=== PATIENT | female | born 1990 ===

== ENCOUNTER → 2020-09-09 10:45 | Outpatient (BNVA) | payer OTHER, SELFPAY | PROVIDERS: PCP Internal Medicine; Visit Provider Advanced Practice Midwife | DX: Z30.431 Encounter for routine checking of intrauterine contraceptive device (principal) | CPT/HCPCS: 99212 ==

== ENCOUNTER 2021-03-05 09:50 | Outpatient (REF) | payer OTHER, SELFPAY ==
[2021-03-05 15:23] LABS: CT PCR NOT DETECTED (Not Detect.); NG PCR NOT DETECTED (Not Detect.)
[2021-03-06 09:37] LABS: BV Int Neg Control Negative (Negative); BV Int Pos Control Positive (Positive)
[2021-03-11 00:06] LABS: HPV 16 RNA NOT DETECTED (NOT DETECTED); HPV mRNA E6/E7 rflx Detected (Not Detected)
== END 2021-03-05 09:51 | disposition home or self-care (01) ==
LOC: HO.LAB 09:50
PROVIDERS: PCP Internal Medicine; Visit Provider Advanced Practice Midwife
DX: Z01.419 Encounter for gynecological examination (general) (routine) without abnormal findings (principal); Z11.51 Encounter for screening for human papillomavirus (HPV); Z97.5 Presence of (intrauterine) contraceptive device; Z20.2 Contact with and (suspected) exposure to infections with a predominantly sexual mode of transmission
CPT/HCPCS: 87480; 87491; 87510; 87591; 87624; 87625; 87660; 88142

== ENCOUNTER 2021-04-03 10:41 | Emergency (ER) | payer OTHER, SELFPAY ==
--- NOTE | ~2021-04-03 | XR_ITS ---
EXAMINATION: XR KNEE, RIGHT CLINICAL INFORMATION: Right knee pain COMPARISON: None TECHNIQUE: Four views of the right knee. FINDINGS: Bones and soft tissues are normal. No fracture or joint effusion. Alignment is anatomic. Joint spaces are well maintained. No abnormal soft tissue calcification. XR/XR knee RT 4V IMPRESSION: Unremarkable right knee exam
[2021-04-03 11:06] VITALS: BP 104/74; PULSE 72; RESP 16; TEMP 36.6; O2SAT 99; BMI 24.4
--- NOTE | 2021-04-03 11:48 | ED_ITS ---
HPI - Extremity Problem General Chief complaint: Extremity Problem Stated complaint: knee pain Time Seen by Provider: 04/03/21 11:34 Source: patient Mode of arrival: ambulatory Limitations: no limitations History of Present Illness HPI Narrative: Patient presents ED for right medial knee pain that hurts on ambulation and movement. Patient states she has been working out the past month and does not know if she did a quick movement caused an injury. Patient denies any leg swelling, calf pain, chest pain, or shortness of breath. Patient is not on any control pills. Related Data Home Medications Medication Instructions Recorded Confirmed fluocinonide 0.05 % topical cream appl TOPICAL BID PRN 11/07/20 03/05/21 levonorgestrel 20 mcg/24 hours (6 INTRAUTERINE 03/05/21 yrs) 52 mg intrauterine device Previous Rx's Medication Instructions Recorded metronidazole 500 mg tablet 500 mg PO BID 7 Days #14 tab 03/10/21 naproxen 500 mg tablet 500 mg PO BID PRN #60 tab 04/02/21 naproxen 500 mg PO BID PRN #20 tab 04/03/21 Allergies Allergy/AdvReac Type Severity Reaction Status Date / Time No Known Allergies Allergy Verified 03/05/21 10:26 [No Known Allergies*] Review of Systems Review of Systems: Yes all other systems are reviewed and are negative Constitutional: Constitutional: Reports as per HPI and Reports no additional constitutional complaints Eyes: Eyes: Reports as per HPI and Reports no additional eye complaints ENT: Reports system reviewed and no additional complaints, except as doc umented and Reports as per HPI Cardiovascular: Cardiovascular: Reports as per HPI and Reports no additional cardiovascular complaints Respiratory: Respiratory: Reports as per HPI and Reports no additional respiratory complaints Gastrointestinal: Gastrointestinal: Reports as per HPI Genitourinary: Genitourinary: Reports no additional female genitourinary complaints and Reports as per HPI Musculoskeletal: Musculoskeletal: Reports no additional musculoskeletal complaints, Reports as per HPI and Reports arthralgias (Right knee pain) Neurologic: Reports system reviewed and no additional complaints, except as d ocumented and Reports as per HPI Psychiatric: Psychiatric: Reports no additional psychiatric complaints and Reports as per HPI PMFSH Past Medical History Medical History Psoriasis Sinusitis Surgical History Hx of bilateral breast reduction surgery Family History Family History Father Diabetes mellitus Social History Social History Alcohol intake: never Advance Directives: No Advance Directives Information Provided: No Patient : No Gender identity: female Physical Exam Vital Signs: Vital Signs: Last Vital Signs Temp 98 F 04/03/21 11:06 Pulse 72 04/03/21 11:06 Resp 16 04/03/21 11:06 BP 104/74 04/03/21 11:06 Pulse Ox 99 04/03/21 11:06 Body Mass Index 24.4 Const: General: cooperative, healthy appearing, comfortable, no acute distress, well developed, alert and awake Orientation/consciousness: patient oriented x3 HENMT: Head: Yes normal to inspection, Yes No palpable skull fracture present, Yes normocephalic, Yes atraumatic and No abrasion Eyes: General: appearance normal, both eyes and all related structures Neck: Neck: Yes normal visual inspection, Yes full ROM, Yes no lymphadenopathy, Yes no meningeal signs, Yes trachea midline, Yes supple and No tender Chest: Chest palpation & inspection: normal inspection of the chest and normal palpation of entire chest wall Resp: Effort & Inspection: normal respiratory effort and able to speak in complete sentences Auscultation: clear to auscultation bilaterally Cardio: Jugular venous distension: no JVD Heart sounds: S1 normal heart sound present and S2 normal heart sound present GI: Inspection: Yes normal to inspection and No abdominal wall ecchymosis Palpation (GI): Soft to palpation, not firm, nontender, no guarding and not rigid : General: No CVA tenderness and Yes no CVA tenderness Back/Spine/Pelvis: Back: no CVA tenderness, No CVA tenderness and No back tenderness Skin: General skin exam: no rashes or lesions noted and elasticity normal Neuro: General: patient oriented x3, gait normal, no meningeal signs and CN's II-XI intact bilaterally Cranial nerves: Yes CN's II-XII intact bilaterally Extrem: Knee images: 1. Positive for right medial knee tenderness. Negative f or any warmth, swelling, or obvious deformity. Negative for laxity. Negative for leg swelling or calf pain. Pulses in feet intact. Able to flex and extend knee, but with pain. Psych: Appearance: grossly normal, well kempt and not disheveled Course Course Course Narrative: With orderl right knee x-ray and the pain medication. not suspecting DVT. We will treat ordered Reevaluation(s) Reevaluation #1: Right knee x-ray came back negative. Patient informed although her x-ray negative she may need MRI from PCP to make sure there is no meniscus or ligament tear/injury. Patient discharged with pain meds Time: 12:18 MDM - Extremity (Nontraumatic) MDM Narrative Medical decision making narrative: Knee sprain Discharge Plan Discharge Clinical Impression: Knee sprain Patient Disposition: Home, Self-Care Instructions: Knee Sprain (ED) Additional Instructions: X-ray came back negative for any fracture or arthritis. He may need MRI for PCP to evaluate for possible meniscus/ligament injury. Please rest lower extremity and refrain from high intensity exercises for at least 5 days. Return to the ED immediately for swelling of knee, redness, hotness, swelling of leg, calf pain, fever, chills, chest pain, shortness of breath, or any other concerning symptoms. Prescriptions: New naproxen 500 mg tablet 500 mg PO BID PRN (Reason: pain) Qty: 20 RF: 0 No Action metronidazole [Flagyl] 500 mg tablet 500 mg PO BID 7 Days Qty: 14 RF: 0 fluocinonide 0.05 % cream topical BID PRNRF: 0 naproxen 500 mg tablet 500 mg PO BID PRN (Reason: pain) Qty: 60 RF: 0 Mirena 20 mcg/24 hours (6 yrs) 52 mg intrauterine device intrauterine RF: 0 Referrals: Dalton Mark MD [Primary Care Provider] - 2 days (Right knee sprain. Will need MRI to confirm meniscus or ligament tear.) Interventions: ED Discharge Assessment Last Done: 04/03/21 12:24 Discharge Date/Time: 04/03/21 12:24 Print Language: Maltese
[2021-04-03] MEDS: Ibuprofen 800 MG TABLET PO (11:54)
== END 2021-04-03 12:24 | disposition home or self-care (01) ==
PROVIDERS: Emergency Provider Emergency Medicine; PCP Internal Medicine
DX: S83.91XA Sprain of unspecified site of right knee, initial encounter (principal); X58.XXXA Exposure to other specified factors, initial encounter; Y93.9 Activity, unspecified; Y92.9 Unspecified place or not applicable; Y99.9 Unspecified external cause status
CPT/HCPCS: 73564; 99283; 99284

== ENCOUNTER 2021-04-25 08:14 | Outpatient (REF) | payer OTHER, SELFPAY | END 2021-04-25 08:15 | disposition home or self-care (01) | LOC: HO.LAB 08:14 | PROVIDERS: PCP Internal Medicine; Visit Provider Internal Medicine | DX: Z20.822 Contact with and (suspected) exposure to COVID-19 (principal) | CPT/HCPCS: C9803; U0003; U0005 ==

== ENCOUNTER 2021-11-10 15:30 | Outpatient (REF) | payer OTHER, SELFPAY ==
[2021-11-10 15:58] LABS: Binax Internal Control QC Valid; Binax Now Covid-19 Ag Negative (Negative)
== END 2021-11-10 15:31 | disposition home or self-care (01) ==
LOC: HO.LAB 15:30
PROVIDERS: Visit Provider Internal Medicine
DX: Z20.822 Contact with and (suspected) exposure to COVID-19 (principal)
CPT/HCPCS: C9803

== ENCOUNTER 2022-01-01 13:22 | Outpatient (REF) | payer OTHER, SELFPAY ==
[2022-01-01 14:21] LABS: COVID-19 Test Negative (Negative)
== END 2022-01-01 13:23 | disposition home or self-care (01) ==
LOC: HO.LAB 13:22
PROVIDERS: Visit Provider Internal Medicine
DX: Z20.822 Contact with and (suspected) exposure to COVID-19 (principal)
CPT/HCPCS: 87635; C9803

== ENCOUNTER 2022-02-17 14:00 | Outpatient (REF) | payer OTHER, SELFPAY ==
[2022-02-17 14:28] LABS: MANUAL DIFF FLAG NO
[2022-02-17 14:57] LABS: Basophils Percent Auto 0.7 % (0-2); Eosinophils Absolute Auto 0.1 X10*3/uL (0.0-0.4); Eosinophils Percent Auto 2.2 % (0-4); Hematocrit 38.6 % (37.0-47.0); Hemoglobin 12.4 g/dl (12.0-16.0); Imm Gran Abs Auto 0.02 X10*3/uL (0.00-0.03); Imm Gran Pct Auto 0.3 % (0.0-0.4); Lymphocytes Absolute Auto 2.1 X10*3/uL (1.2-4.9); Mean Corpuscular HGB Conc 32.1 g/dl (31.0-35.0); Mean Corpuscular Hemoglobin 28.8 pg (27.0-33.0); Mean Corpuscular Volume 89.8 fL (80.0-98.0); Mean Platelet Volume 10.4 fL (9.4-12.3); Monocytes Absolute Auto 0.3 X10*3/uL (0.1-1.2); Monocytes Percent Auto 4.3 % (2-11); Neutrophils Absolute Auto 3.3 x10*3/uL (2.0-8.3); Neutrophils Percent Auto 56.5 % (45-73); Platelet Count 207 X10*3/uL (160-400); White Blood Count 5.8 X10*3/uL (4.8-10.8)
[2022-02-17 15:16] LABS: Alanine Aminotransferase 14 U/L (0-31); Albumin Level 4.3 g/dL (3.5-5.0); Alkaline Phosphatase 66 U/L (39-117); Anion Gap 9 (12-20); Aspartate Amino Transferase 13 U/L (5-31); Bilirubin Total 0.6 mg/dL (0.0-1.0); Blood Urea Nitrogen 13 mg/dL (9-16); Calcium 9.4 mg/dL (8.4-10.2); Carbon Dioxide 30 mmol/L (22-29); Chloride 107 mmol/L (96-108); Cholesterol 131 mg/dL; Estimated Glomerular Filt Rate > 60; Glucose Fasting 89 mg/dL (60-99); HDL Cholesterol 37 mg/dL; LDL Cholesterol Calculated 65 mg/dl; Lipase 34 U/L (8-78); Potassium 4.1 mmol/L (3.3-5.1); Sodium 142 mmol/L (135-145); Total Protein 7.4 g/dL (6.5-8.0); Triglycerides 149 mg/dL
[2022-02-17 15:36] LABS: TSH reflex Free T4 1.17 uIU/mL (0.32-4.0); Vitamin D 25-OH Total 15.4 ng/mL (>30)
[2022-02-17 15:36] LABS: Appearance Urine HAZY; Color Urine YELLOW; Glucose Urine UA NEG (NEG); Leukocyte Esterase Urine NEG (NEG); Nitrite Urine NEG (NEG); PH 7.5 (5.0-8.0); Urine Blood NEG (NEG); Urine Ketones NEG (NEG); Urine Protein TRACE MG/DL (NEG-TRACE)
== END 2022-02-17 14:01 | disposition home or self-care (01) ==
LOC: HO.LAB 14:00
PROVIDERS: PCP Internal Medicine; Visit Provider Internal Medicine
DX: Z00.00 Encounter for general adult medical examination without abnormal findings (principal); R10.13 Epigastric pain; E55.9 Vitamin D deficiency, unspecified
CPT/HCPCS: 36415; 80053; 80061; 81003; 82306; 83690; 84443; 85025

== ENCOUNTER 2022-02-26 08:50 | Outpatient (REF) | payer OTHER, SELFPAY ==
[2022-02-26 09:19] LABS: COVID-19 Test Negative (Negative)
== END 2022-02-26 08:51 | disposition home or self-care (01) ==
LOC: HO.LAB 08:50
PROVIDERS: PCP Internal Medicine; Visit Provider Internal Medicine
DX: Z20.822 Contact with and (suspected) exposure to COVID-19 (principal)
CPT/HCPCS: 87635; C9803

== ENCOUNTER 2022-04-01 15:09 | Outpatient (REF) | payer OTHER, SELFPAY ==
--- NOTE | ~2022-04-01 | US_ITS ---
EXAMINATION: US PELVIS CLINICAL INFORMATION: Lower abdominal pain. COMPARISON: None TECHNIQUE: Ultrasound of the pelvis is performed using both transabdominal and transvaginal transducers along with Doppler. Transvaginal imaging is performed due to inadequate visualization transabdominally. FINDINGS: Uterus: The uterus is anteverted, anteflexed and measures 5.7 cm in length, 3.7 cm in AP and 4.5 cm in transverse dimension. The double wall endometrial thickness is 0.5 cm. The uterus flipped during the exam with an IUD visualized in correct position. The uterus is smooth in contour and has normal myometrial echogenicity. No visible fibroid. Adnexa: Both ovaries are visualized. There is normal color flow to the adnexa. There is no ovarian torsion. There is no pelvic ascites or fluid collection. Right ovary measures 3.9 x 1.9 x 2.5 cm and volume 9.7 mL. There is an anechoic corpus luteal cyst versus cystic remnants measuring 1.8 x 1.5 x 1.6 cm. Left ovary measures 2.9 x 1.4 x 2.2 cm and volume 4.7 mL. It appears unremarkable. No free fluid seen. US/US pelvic and transvaginal IMPRESSION: 1. Anteverted uterus which flipped into retroverted position during the exam. There is an IUD in correct position. 2. Small corpus luteal cyst or remnants of a simple cyst in the right ovary.
== END 2022-04-01 15:10 | disposition home or self-care (01) ==
LOC: HO.US 15:09
PROVIDERS: PCP Internal Medicine; Visit Provider Internal Medicine
DX: R10.13 Epigastric pain (principal); R10.30 Lower abdominal pain, unspecified
CPT/HCPCS: 76830; 76856

== ENCOUNTER 2022-06-30 08:54 | Outpatient (REF) | payer OTHER, SELFPAY ==
[2022-07-02 15:34] LABS: H Pylori Breath Test Negative (Negative)
== END 2022-06-30 08:55 | disposition home or self-care (01) ==
LOC: HO.LNP 08:54
PROVIDERS: PCP Internal Medicine; Visit Provider Nurse Practitioner Family
DX: K21.9 Gastro-esophageal reflux disease without esophagitis (principal); R10.13 Epigastric pain
CPT/HCPCS: 83013; 99202; 99212

== ENCOUNTER 2022-08-13 14:15 | Outpatient (REF) | payer OTHER, SELFPAY ==
[2022-08-18 16:02] LABS: HPV mRNA E6/E7 rflx Not Detected (Not Detected)
== END 2022-08-13 14:16 | disposition home or self-care (01) ==
LOC: HO.LNP 14:15
PROVIDERS: Visit Provider Advanced Practice Midwife
DX: Z01.419 Encounter for gynecological examination (general) (routine) without abnormal findings (principal)
CPT/HCPCS: 87624; 88142

== ENCOUNTER 2022-08-21 21:53 | Emergency (ER) | payer OTHER, SELFPAY ==
[2022-08-21 22:05] VITALS: BP 103/67; PULSE 74; RESP 18; TEMP 36.6; O2SAT 98; BMI 26.2
[2022-08-22] VITALS: BP 134/80; PULSE 72; RESP 16; TEMP 37; O2SAT 97
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
[2022-08-22 02:00] VITALS: BP 108/65; PULSE 83; RESP 18; TEMP 36.6; O2SAT 98
--- NOTE | 2022-08-22 02:01 | PC.NURSE ---
kalia wrap apply to pt right ankle by this pct .
[2022-08-22] MEDS: Acetaminophen 325 MG TABLET 975 MG PO (02:07)
[2022-08-22] MEDS: Ketorolac Tromethamine 15 MG/ML VIAL IM (02:12)
[2022-08-22] MEDS: Lidocaine 4 % Patch ADH..PATCH 1 PATCH TRANSDERMA (02:12)
== END 2022-08-22 02:33 | disposition home or self-care (01) ==
PROVIDERS: Emergency Provider Student in an Organized Health Care Education/Training Program; PCP Internal Medicine
DX: Z04.1 Encounter for examination and observation following transport accident (principal); M62.830 Muscle spasm of back; M25.512 Pain in left shoulder; M25.511 Pain in right shoulder
CPT/HCPCS: 96372; 99283; 99284; J1885

== ENCOUNTER 2022-09-01 13:10 | Outpatient (REF) | payer OTHER, SELFPAY ==
--- NOTE | ~2022-09-01 | XR_ITS ---
EXAMINATION: XR THORACIC SPINE CLINICAL INFORMATION: Dorsalgia. COMPARISON: None TECHNIQUE: 3 views of the thoracic spine were obtained. FINDINGS: There is maintained thoracic kyphosis. There is minimal upper thoracic spine scoliosis. The vertebral heights, alignment and disc heights are normal. No visible acute fracture, dislocation or subluxation seen. XR/XR thoracic spine 3V IMPRESSION: Minimal upper thoracic spine scoliosis. No visible acute fracture, dislocation or subluxation seen.
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
== END 2022-09-01 13:11 | disposition home or self-care (01) ==
LOC: HO.XRAY 13:10
PROVIDERS: PCP Internal Medicine; Visit Provider Internal Medicine
DX: M54.9 Dorsalgia, unspecified (principal); M25.562 Pain in left knee; V89.2XXA Person injured in unspecified motor-vehicle accident, traffic, initial encounter; Y93.9 Activity, unspecified; Y92.9 Unspecified place or not applicable; Y99.9 Unspecified external cause status
CPT/HCPCS: 72072; 73562

== ENCOUNTER → 2022-11-04 10:01 | Outpatient (BNVA) | payer OTHER, SELFPAY | PROVIDERS: PCP Internal Medicine; Visit Provider Nurse Practitioner Family | DX: R10.33 Periumbilical pain (principal); K21.9 Gastro-esophageal reflux disease without esophagitis; K58.9 Irritable bowel syndrome, unspecified; Q89.9 Congenital malformation, unspecified | CPT/HCPCS: 99212 ==

== ENCOUNTER → 2023-02-02 10:07 | Outpatient (BNVA) | payer OTHER, SELFPAY | PROVIDERS: PCP Internal Medicine; Visit Provider Nurse Practitioner Family | DX: K42.9 Umbilical hernia without obstruction or gangrene (principal); R10.13 Epigastric pain; R10.33 Periumbilical pain | CPT/HCPCS: 99212 ==

== ENCOUNTER 2023-02-03 08:54 | Outpatient (REF) | payer OTHER, SELFPAY ==
[2023-02-03 09:22] LABS: MANUAL DIFF FLAG NO
[2023-02-03 10:32] LABS: Basophils Percent Auto 0.8 % (0-2); Eosinophils Absolute Auto 0.1 X10*3/uL (0.0-0.4); Eosinophils Percent Auto 1.6 % (0-4); Hematocrit 39.3 % (37.0-47.0); Hemoglobin 12.6 g/dl (12.0-16.0); Imm Gran Abs Auto 0.02 X10*3/uL (0.00-0.03); Imm Gran Pct Auto 0.4 % (0.0-0.4); Lymphocytes Absolute Auto 1.5 X10*3/uL (1.2-4.9); Lymphocytes Percent Auto 30.7 % (20-40); Mean Corpuscular HGB Conc 32.1 g/dl (31.0-35.0); Mean Corpuscular Hemoglobin 28.2 pg (27.0-33.0); Mean Corpuscular Volume 87.9 fL (80.0-98.0); Mean Platelet Volume 10.5 fL (9.4-12.3); Monocytes Absolute Auto 0.2 X10*3/uL (0.1-1.2); Monocytes Percent Auto 3.7 % (2-11); Neutrophils Percent Auto 62.8 % (45-73); Platelet Count 172 X10*3/uL (160-400); Red Blood Count 4.47 X10*6/uL (4.20-5.50); Red Cell Distribution Width 12.1 % (11.0-16.0); White Blood Count 4.9 X10*3/uL (4.8-10.8)
[2023-02-03 10:34] LABS: Appearance Urine Clear; Color Urine Yellow; Glucose Urine UA Negative (Negative); Leukocyte Esterase Urine Trace (Negative); Nitrite Urine Negative (Negative); PH 7.5 (5.0-9.0); Specific Gravity - Urine 1.025 (1.005-1.025); UMIC TRIGGER UACC YES; Urine Blood Negative (Negative); Urine Ketones Negative (Negative); Urine Protein Negative (Neg-Trace)
[2023-02-03 10:36] LABS: Bacteria Urine 1+ (None Seen); Hyaline Casts Urine 0-2 /LPF (0-2); RBC Urine 0-2 /HPF (0-2); WBC Urine 0-5 /HPF (0-5)
[2023-02-03 11:28] LABS: Alanine Aminotransferase 20 U/L (0-31); Albumin Level 4.3 g/dL (3.5-5.0); Alkaline Phosphatase 67 U/L (39-117); Anion Gap 12 (12-20); Aspartate Amino Transferase 14 U/L (5-31); Bilirubin Total 0.8 mg/dL (0.0-1.0); Blood Urea Nitrogen 11 mg/dL (9-16); C Reactive Protein 0.44 mg/dL (< or = 0.50); Calcium 8.8 mg/dL (8.4-10.2); Carbon Dioxide 26 mmol/L (22-29); Chloride 106 mmol/L (96-108); Cholesterol 130 mg/dL; Estimated Glomerular Filt Rate > 60; Glucose Fasting 85 mg/dL (60-99); HDL Cholesterol 35 mg/dL; LDL Cholesterol Calculated 85 mg/dl; Potassium 4.2 mmol/L (3.3-5.1); Sodium 140 mmol/L (135-145); Total Protein 6.9 g/dL (6.5-8.0); Triglycerides 51 mg/dL
[2023-02-03 11:33] LABS: Erythrocyte Sedimentation Rate 18 MM/HR (0-20)
[2023-02-03 11:34] LABS: TSH reflex Free T4 1.63 uIU/mL (0.32-4.0)
[2023-02-05 08:24] LABS: Lyme Abs Screen <0.90 index
== END 2023-02-03 08:55 | disposition home or self-care (01) ==
LOC: HO.LAB 08:54
PROVIDERS: Absent Provider Nurse Practitioner Family; PCP Internal Medicine; Visit Provider Internal Medicine
DX: Z00.00 Encounter for general adult medical examination without abnormal findings (principal); R53.83 Other fatigue; M54.9 Dorsalgia, unspecified; E55.9 Vitamin D deficiency, unspecified; M25.50 Pain in unspecified joint; E78.00 Pure hypercholesterolemia, unspecified
CPT/HCPCS: 36415; 80053; 80061; 81001; 82306; 84443; 85025; 85652; 86140; 86617; 86618

== ENCOUNTER 2023-02-10 11:04 | Outpatient (REF) | payer OTHER, SELFPAY ==
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
== END 2023-02-10 11:05 | disposition home or self-care (01) ==
LOC: HO.XRAY 11:04
PROVIDERS: PCP Internal Medicine; Visit Provider Internal Medicine
DX: M54.50 Low back pain, unspecified (principal)
CPT/HCPCS: 72100

== ENCOUNTER 2023-03-17 13:32 | Outpatient (AMB) | payer OTHER, SELFPAY ==
[2023-03-17 13:37] VITALS: BP 110/80; PULSE 75; O2SAT 99; BMI 27.3
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
== END 2023-03-17 14:25 | disposition home or self-care (01) ==
LOC: HO.HMGH 13:32
PROVIDERS: PCP Internal Medicine; Visit Provider Internal Medicine
DX: M54.6 Pain in thoracic spine (principal); F07.81 Postconcussional syndrome; V86.55XA Driver of 3- or 4- wheeled all-terrain vehicle (ATV) injured in nontraffic accident, initial encounter
CPT/HCPCS: 99213

== ENCOUNTER 2023-03-23 10:45 | Day surgery (SDC) | payer OTHER, SELFPAY ==
[2023-03-19 14:02] VITALS: BMI 27.3
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
[2023-03-23 11:21] VITALS: BP 98/67; PULSE 64; RESP 16; TEMP 37.1; O2SAT 100; BMI 26.6
[2023-03-23 11:32] LABS: UPreg QC Valid YES; Urine Pregnancy NEGATIVE (NEGATIVE)
[2023-03-23] MEDS: Lactated Ringers 1,000 ML 100 ML IVCONT (11:35)
--- NOTE | 2023-03-23 13:21 | MHC.SHP ---
Pre-Procedural Eval Section A Date of Service: 03/23/23 Section B Chief Complaint: Epigastric pain Relevant Family History (Specify if Yes): No Relevant Social History: None Present Medications: see Short Stay Collaborative assessment Medical History: Significant History (Overweight (BMI 25.0-29.9) Psoriasis) History of Previous Operations: Relevant previous surgery/procedure and date(s) (H/O abdominoplasty Hx of bilateral breast reduction surgery) Allergies: Allergies Allergy/AdvReac Type Severity Reaction Status Date / Time No Known Allergies Allergy Verified 03/23/23 11:28 [No Known Allergies*] Review of Systems Sugical H&P ROS: Negative: Constitution, Cardiovascular, Respiratory, Neurological, Psychiatric, Hem-Onc, Allergic/Immunologic, Gastrointestinal, Genitourinary, Musculoskeletal, Integumentary, Endocrine and Eyes/Ears/Nose/Throat Exam Surgical H&P Exam: Normal: HEENT, Normal: Heart, Normal: Lungs, Normal: Extremities, Normal: Abdomen, Normal: Skin and Normal: Neurological Plan Diagnosis/Plan: Unchanged I have reviewed the history and physical and performed a pertinent physical examination on my patient. No changes have occurred unless specified. Time Spent With Patient Time: Total time managing care of this patient today ____ minutes.
--- NOTE | 2023-03-23 13:23 | W.PM.OPN ---
Operative Note Operative Note Date of Service: 03/23/23 Narrative: Procedure Description: EGD Indication: epigastric pain Anesthesia: MAC FLEXIBLE TRANSORAL UPPER GASTROINTESTINAL ENDOSCOPY UPPER ENDOSCOPY Consent: Indications for the procedure and potential complications of bleeding, perforation, reaction to medications and missed diagnosis were discussed with the patient and informed consent was obtained. Instrument: Olympus GIF H 190 J mid size upper endoscope Monitoring: Vital signs and clinical assessment, continuous EKG monitoring, Pulse oximetry, Carbon Dioxide monitoring and blood pressure monitoring were done throughout the procedure. Procedure: The patient was placed in the left lateral decubitis position and pre-procedure medications were administered and a bite block was placed. The endoscope was inserted into the mouth and advanced under direct vision to the third part of duodenum. A careful inspection was made as the upper endoscope was withdrawn including a retroflexed examination of the proximal stomach; Findings and interventions are described below. Findings: Larynx:normal Esophagus: GE junction at 38 cm, diaphragm hiatus at 38 cm, mild esophagitis at GEJ bx taken from here as well as distal esophagus Stomach: Patchy gastric erythema. Biopsies were obtained. Grade 2 flap valve on retroflexed examination of the cardia. there was good peristasis noted Duodenum: Mild patchy duodenitis, bx taken, bulb seemed to be compressed extrinsically from outside Intervention: Biopsies as noted above Impression/Findings: esophagitis gastritis duodenitis PLAN: await bx if neg and ongoing sx, consider US doppler to r/o SMA compression or MALS
[2023-03-23 13:42] VITALS: BP 91/47; PULSE 83; RESP 16; TEMP 36.3; O2SAT 97
[2023-03-23 13:57] VITALS: BP 102/61; PULSE 74; RESP 16; O2SAT 100
[2023-03-23 14:12] VITALS: BP 113/72; PULSE 70; RESP 16; TEMP 36.4; O2SAT 100
== END 2023-03-23 14:55 | disposition home or self-care (01) ==
PROVIDERS: Nurse Practitioner; PCP Internal Medicine; Visit Provider Internal Medicine Gastroenterology
PROC: 0DJ08ZZ Inspection of Upper Intestinal Tract, Via Natural or Artificial Opening Endoscopic (ICD-10-PCS; CPT 43235; principal; 2023-03-23 12:30)
DX: K29.50 Unspecified chronic gastritis without bleeding (principal); K20.80 Other esophagitis without bleeding; K29.80 Duodenitis without bleeding; K21.9 Gastro-esophageal reflux disease without esophagitis; K44.9 Diaphragmatic hernia without obstruction or gangrene; K42.9 Umbilical hernia without obstruction or gangrene; K58.9 Irritable bowel syndrome, unspecified; Z79.899 Other long term (current) drug therapy; Z98.890 Other specified postprocedural states
CPT/HCPCS: 43239; 81025; 88305; 88342

== ENCOUNTER 2023-03-30 08:43 | Outpatient (REF) | payer OTHER, SELFPAY ==
--- NOTE | ~2023-03-30 | CT_ITS ---
EXAMINATION: CT ABDOMEN AND PELVIS WITH CONTRAST CLINICAL INFORMATION: Abdominal pain COMPARISON: None available. TECHNIQUE: Multidetector volumetric images were obtained from the superior aspect of the liver through the pubic symphysis following administration 85 mL of Omnipaque 350 intravenous contrast. Sagittal and coronal reformatted images were obtained on the technologist's workstation. Oral contrast: Yes This CT examination was performed using dose optimization techniques as appropriate, variously including the following: *Automated exposure control *Adjustment of mA and/or kV according to patient size (this includes techniques or standardized protocols for targeted exams where dose is matched to indication/reason for exam; i.e. extremities or head) *Use of iterative reconstruction technique DLP: 433 mGy-cm FINDINGS: LUNG BASES: The visualized lung bases are unremarkable. LIVER, GALLBLADDER, AND BILIARY TREE: The liver is normal in size and shape. There may be mild fatty infiltration.. No focal hepatic lesion or biliary ductal dilatation is present. The gallbladder is contracted. There are probable gallstones. PANCREAS: Unremarkable. SPLEEN: Unremarkable. ADRENAL GLANDS: Unremarkable. KIDNEYS AND URETERS: The kidneys are normal in size, shape, and attenuation. No hydronephrosis, hydroureter, or calculi seen. No perinephric stranding. Small left renal cysts. No imaging follow-up recommended. BLADDER: Unremarkable. GASTROINTESTINAL TRACT: The small and large bowel are unremarkable. The appendix is unremarkable. ABDOMINAL WALL: Postsurgical changes to the anterior abdominal wall. No hernia or fluid collection. LYMPH NODES: Normal. VASCULAR: Unremarkable. PELVIC VISCERA: IUD in the uterus in satisfactory position OSSEOUS STRUCTURES: Unremarkable. CT/CT abdomen pelvis w IV con IMPRESSION: Contracted gallbladder and probable gallstones. IUD in the uterus in satisfactory position. Postsurgical changes in the anterior abdominal wall. No hernia or fluid collection. Fleischner guidelines were followed.
[2023-03-30] MEDS: iohexoL 350 MG/ML 100 ML INFUS..BTL 85 ML IV (11:00)
[2023-03-30] MEDS: Barium Sulfate Oral (Berry) 450 ML ORAL.SUSP 900 ML PO (11:02)
== END 2023-03-30 08:44 | disposition home or self-care (01) ==
LOC: HO.CT 08:43
PROVIDERS: Visit Provider Nurse Practitioner Family
DX: R10.9 Unspecified abdominal pain (principal); Q89.9 Congenital malformation, unspecified
CPT/HCPCS: 74177; Q9967

== ENCOUNTER → 2023-04-01 09:33 | Outpatient (BNVA) | payer OTHER, SELFPAY | PROVIDERS: PCP Internal Medicine; Visit Provider Advanced Practice Midwife | DX: Z30.432 Encounter for removal of intrauterine contraceptive device (principal); Z12.4 Encounter for screening for malignant neoplasm of cervix; N94.6 Dysmenorrhea, unspecified; Z30.09 Encounter for other general counseling and advice on contraception; Z98.82 Breast implant status; Z98.890 Other specified postprocedural states | CPT/HCPCS: 58301; 99212 ==

== ENCOUNTER 2023-04-13 11:56 | Outpatient (AMB) | payer OTHER, SELFPAY ==
[2023-04-13 12:06] VITALS: BP 103/74; PULSE 74; BMI 27.2
--- NOTE | 2023-04-13 12:06 | A.OFFVIS_ITS ---
Intake Vital Signs 04/13/23 12:06 Height 5 ft 5 in Weight 163 lb 9.328 oz BMI 27.2 BP 103/74 Blood Pressure Location Lt brachial Position Sitting Pulse 74 Intake Visit Reasons: S/P EGD; Dr. Hollis Intake Note: Yvonne presents in office as a est.patient for a post-op f/u for EGD pt got it done 6 PT CC: pt reports having abdominal pain , bloating ,diarrhea pt denies any other GI Issues Supervisor Communications And Signals Required: No Accompanied by: Self / Same As Patient Allergies No Known Allergies [No Known Allergies*] Allergy (Verified 04/13/23 12:07) HPI S/P EGD; Dr. Hollis HPI Details LAST VISIT Postprandial epigastric pain Postprandial epigastric discomfort. Will change to omeprazole. Patient stopped taking pantoprazole as it was making her feel worse. Patient had candy about half an hour ago unable to do H pylori. Will check for transglutaminase, patient never did her blood work. Will send patient for upper endoscopy to further evaluate gastritis, duodenitis, gastric or peptic ulcers, H pylori, esophagitis. Umbilical hernia Small umbilical hernia noted. This also could be an adhesion after abdominoplasty. Will hold off on sending her for surgical consult, will send patient for CT scan. Patient has never gone for that test that was order back in October. Abdominal pain Occasional left lower quadrant pain. Patient reports that she is moving her bowels better. Will rule out pancreatic insufficiency. Low FODMAP diet discussed with patient again. Patient does have a list at home. Patient will try to follow it more carefully. Epigastric pain Postprandial epigastric pain. Will send patient for upper endoscopy as mentioned above. I will see her after the procedure. Patient will start taking omeprazole and will call the office if it is not going to be effective. She is agreeable to this plan and verbalizes understanding of instructions. She was given the opportunity to ask questions and all questions answered. ? Thank you for allowing me to participate in her care Plan Orders Orders Pancreatic Elastase-1 Today R10.9 Medications New omeprazole 40 mg PO DAILY 90 caps 3RF K21.9 Refilled cholecalciferol (vitamin D3) 50 mcg PO DAILY 90 caps 3RF R79.89 UPPER ENDOSCOPY Findings: Larynx:normal Esophagus: GE junction at 38? cm, diaphragm hiatus at 38 cm, mild esophagitis at GEJ bx taken from here as well as distal esophagus Stomach: Patchy gastric erythema. Biopsies were obtained. Grade 2 flap valve on retroflexed examination of the cardia. there was good peristasis noted Duodenum: Mild patchy duodenitis, bx taken, bulb seemed to be compressed extrinsically from outside Intervention: Biopsies as noted above Impression/Findings: esophagitis gastritis duodenitis PLAN: await bx if neg and ongoing sx, consider US doppler to r/o SMA compression or MALS PATHOLOGY RESULTS: Diagnosis A.? Duodenum, biopsy:? Duodenal mucosa with focal blunted villi, focal reactive changes, and mild features of chronic/non-specific duodenitis. B.? Stomach, biopsy:? Gastric antral and body mucosa with minimal chronic inactive gastritis; negative for H pylori, intestinal metaplasia and dysplasia. C.? Gastroesophageal junction, biopsy:? Squamocolumnar mucosa with mild chronic active inflammation; negative for intestinal metaplasia and dysplasia.? D.? Esophagus, distal, biopsy:? Squamous mucosa with no specific change; no columnar mucosa present. TODAY'S VISIT: Patient is here today for follow-up and to discuss upper endoscopy and CT scan results. Patient denies any ill effects from anesthesia or procedure itself. Patient reports that she continues to have epigastric discomfort postprandially. Patient reports that that depends on what kind of food that she eats. Patient reports to have postprandial abdominal bloating and occasional diarrhea. Patient states that she also has a right upper quadrant discomfort postprandially. Patient denies any nausea or vomiting. Denies any fever or chills. Denies any other GI concerning symptoms. [facility] Medical History (Updated 04/13/23 @ 12:42 by Criss Moreno [facility]) Cholelithiasis Overweight (BMI 25.0-29.9) Postprandial abdominal pain in right upper quadrant Psoriasis Surgical History (Updated 04/09/23 @ 10:48 by Freddy Burroughs) H/O abdominoplasty History of esophagogastroduodenoscopy (EGD) Hx of bilateral breast reduction surgery Family History Father Diabetes mellitus Social History Housing: Apartment Alcohol intake: current Alcohol intake frequency: a few times a month Patient Tobacco Use Status: Never used Tobacco Tobacco use type: Cigarette e-Cigarette/Vaping Use: Never Used Second Hand Smoke Exposure: No service: No Current occupational status: employed Gender identity: Female Cognitive needs: No Hearing needs: No Vision needs: Yes Female Reproductive History Menstrual Age of Menarche: 13 Review of Systems Const Denies weight gain and Denies weight loss ENT Reports no additional complaints, Denies dysphagia and Denies odynophagia Card Reports no additional complaints Resp Reports no additional complaints GI Reports abdominal pain (RUQ), Denies belching, Denies melena, Reports bloating, Denies change in bowel habits, Denies dysphagia, Denies excessive flatus, Denies dyspepsia, Reports heartburn, Denies diarrhea, Denies loose stools, Denies nausea, Denies odynophagia and Denies vomiting Reports no additional complaints Musc Reports no additional complaints Neuro Reports no additional complaints Psych Reports no additional complaints Endo Reports no additional complaints Physical Exam Vital Signs: Last Vital Signs Pulse 74 04/13/23 12:06 BP 103/74 04/13/23 12:06 BMI result Body Mass Index 27.2 Const General: healthy appearing, no acute distress and well developed Nutritional Appearance: well nourished Orientation/consciousness: patient oriented x3 HEENT Head: Yes normal to inspection, Yes normocephalic and Yes atraumatic Face and sinus: Yes normal facial exam Mouth: Normal oral and palatal mucosa present Throat: Yes posterior oropharynx normal, Yes tonsils normal and Yes uvula midline Eyes General: appearance normal, both eyes and all related structures Neck Neck: Yes normal visual inspection, Yes full ROM and Yes trachea midline Thyroid: Thyroid normal Resp Effort & Inspection: normal respiratory effort, able to speak in complete sentences, no tracheal deviation and symmetric chest movement Auscultation: clear to auscultation bilaterally Cardio Rate: regular rate Heart sounds: S1 normal heart sound present and S2 normal heart sound present GI Inspection: Yes normal to inspection and No distended Palpation (GI): Soft to palpation, not firm, nontender and No hepatosplenomegaly present Auscultation: normal bowel sounds General: Yes no CVA tenderness Back/Spine/Pelvis Back: no CVA tenderness Skin General skin exam: elasticity normal, turgor normal and dry skin Neuro General: patient oriented x3 Psych Appearance: grossly normal Mental Status: mental status grossly normal Speech and movement: Normal speech and movement present Affect: normal affect Results Reviewed Results Reviewed: Abdominal CT scan 03/30/2023 FINDINGS: LUNG BASES: The visualized lung bases are unremarkable.? LIVER, GALLBLADDER, AND BILIARY TREE: The liver is normal in size and shape. There may be mild fatty infiltration.. No focal hepatic lesion or biliary ductal dilatation is present. The gallbladder is contracted. There are probable gallstones. PANCREAS: Unremarkable.? SPLEEN: Unremarkable.? ADRENAL GLANDS: Unremarkable.? KIDNEYS AND URETERS: The kidneys are normal in size, shape, and attenuation. No hydronephrosis, hydroureter, or calculi seen. No perinephric stranding. Small left renal cysts. No imaging follow-up recommended. BLADDER: Unremarkable.? GASTROINTESTINAL TRACT: The small and large bowel are unremarkable. The appendix is unremarkable.? ABDOMINAL WALL: Postsurgical changes to the anterior abdominal wall. No hernia or fluid collection. LYMPH NODES: Normal. VASCULAR: Unremarkable. PELVIC VISCERA: IUD in the uterus in satisfactory position OSSEOUS STRUCTURES: Unremarkable.? CT/CT abdomen pelvis w IV con IMPRESSION: Contracted gallbladder and probable gallstones. IUD in the uterus in satisfactory position. Postsurgical changes in the anterior abdominal wall. No hernia or fluid collection. Fleischner guidelines were followed. Assessment & Plan Assessment & Plan (1) Cholelithiasis: Code(s): K80.20 - Calculus of gallbladder without cholecystitis without obstruction Plan: Possible cholelithiasis without cholecystitis seen on CT scan. Will send patient for HIDA scan. Patient was encouraged to avoid food that is high in fat or fried. (2) Postprandial abdominal pain in right upper quadrant: Code(s): R10.11 - Right upper quadrant pain Plan: Reports postprandial right upper quadrant discomfort and bloating. Will send patient for HIDA scan. In the meantime patient was encouraged to avoid food that is high in fat. Also discussed with patient low FODMAP diet to avoid the bloating. Patient was encouraged to have stool sample done to check for pancreatic insufficiency. Will also check lipase and liver profile. (3) Postprandial epigastric pain: Code(s): R10.13 - Epigastric pain Plan: Patient was encouraged to avoid dietary triggers in late night snacking. Will change her treatment to Nexium and sucralfate at bedtime. Staying upright her minimal 3 hours after meals discussed with patient. I will see her in 2 months, sooner on as needed basis. Patient is agreeable to this plan and verbalizes understanding of instructions. She was given the opportunity to ask questions and all questions answered. Thank you for allowing me to participate in her care Orders: Orders Lipase 04/13/23 R10.9 - Unspecified abdominal pain Liver Panel 04/13/23 R10.9 - Unspecified abdominal pain NM hepatobiliary w pharm 04/13/23 K80.20 - Calculus of gallbladder without cholecystitis without obstruction, R10.11 - Right upper quadrant pain Medications: New sucralfate 1 g PO BEDTIME 30 tabs 4RF R19.7 - Diarrhea, unspecified esomeprazole magnesium (Nexium) 40 mg PO DAILY 30 caps 5RF K21.9 - Gastro- esophageal reflux disease without esophagitis Discontinued omeprazole Discontinued Reason: Doctor's Order 40 mg PO DAILY 90 caps 3RF K21.9 - Gastro-esophageal reflux disease without esophagitis Coding Level of Care Code Est Pt Level 4 (99030) Diagnoses Cholelithiasis K80.20 Postprandial abdominal pain in right upper quadrant R10.11 Postprandial epigastric pain R10.13 Time Spent (min) 35 Comment 20 minutes spent with patient and additional 15 minutes spent reviewing her records
== END 2023-04-13 12:43 | disposition home or self-care (01) ==
PROVIDERS: PCP Internal Medicine; Visit Provider Nurse Practitioner Family
DX: K80.20 Calculus of gallbladder without cholecystitis without obstruction (principal); R10.11 Right upper quadrant pain; R10.13 Epigastric pain
CPT/HCPCS: 99213; 99214

== ENCOUNTER → 2023-04-13 11:56 | Outpatient (BNVA) | payer OTHER, SELFPAY | PROVIDERS: PCP Internal Medicine; Visit Provider Nurse Practitioner Family | DX: K80.20 Calculus of gallbladder without cholecystitis without obstruction (principal); R10.11 Right upper quadrant pain; R10.13 Epigastric pain | CPT/HCPCS: 99212 ==

== ENCOUNTER → 2023-04-26 09:26 | Outpatient (REF) | payer OTHER, SELFPAY ==
--- NOTE | ~2023-04-26 | NM_ITS ---
EXAMINATION: BILIARY TRACT IMAGING STUDY WITH CCK CLINICAL INFORMATION: Calculus of gallbladder without cholecystitis, without obstruction.. COMPARISON: No previous biliary scan is available for comparison. The diagnostic CT scan of the abdomen and pelvis, dated 03/30/2023, is available for comparison.. TECHNIQUE: Serial gamma scintillation camera images were obtained over the abdomen for a total observation period of 90 minutes following the intravenous administration of 5 mCi Tc-99m Mebrofenin. FINDINGS: There is good concentration of activity in the liver by 5 minutes post injection. Biliary activity is visualized by 15 minutes. The gallbladder is well visualized by 50 minutes. Small bowel is well visualized by 20 minutes. At 60 minutes post radiopharmaceutical injection, a 30-minute infusion of 1.5 micrograms Sincalide was then begun and an additional 40 minutes of images were obtained. There is good emptying of the gallbladder. By the end of the study there is good clearance of activity from the liver and visualization of diffuse small bowel activity. The calculated gallbladder ejection fraction is 68% (normal gallbladder ejection fraction is greater than 35%). NM/NM hepatobiliary w pharm IMPRESSION: Visualization of the gallbladder is evidence of a patent cystic duct and strong evidence against the diagnosis of acute cholecystitis. The common bile duct is patent. Gallbladder emptying and ejection fraction are normal. Liver function appears normal.
== END ==
LOC: HO.NUCMED 09:26
PROVIDERS: Visit Provider Nurse Practitioner Family
DX: K80.20 Calculus of gallbladder without cholecystitis without obstruction (principal); R10.11 Right upper quadrant pain
CPT/HCPCS: 78227; A9537; J2805

== ENCOUNTER 2023-05-13 11:21 | Outpatient (AMB) | payer OTHER, SELFPAY ==
[2023-05-13 11:28] VITALS: BP 103/67; PULSE 73; BMI 27.2
--- NOTE | 2023-05-13 11:28 | MHC.OFFVIS ---
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 Will send patient for HIDA scan. Patient was encouraged to avoid food that is high in fat or fried. Postprandial abdominal pain in right upper quadrant Reports postprandial right upper quadrant discomfort and bloating. Will send patient for HIDA scan. In the meantime patient was encouraged to avoid food that is high in fat. Also discussed with patient low FODMAP diet to avoid the bloating. Patient was encouraged to have stool sample done to check for pancreatic insufficiency. Will also check lipase and liver profile. Postprandial epigastric pain Patient was encouraged to avoid dietary triggers in late night snacking. Will change her treatment to Nexium and sucralfate at bedtime. Staying upright her minimal 3 hours after meals discussed with patient. I will see her in 2 months, sooner on as needed basis. Patient is agreeable to this plan and verbalizes understanding of instructions. She was given the opportunity to ask questions and all questions answered. ? Thank you for allowing me to participate in her care Plan Orders Orders Lipase 04/13/23 R10.9 Liver Panel 04/13/23 R10.9 NM hepatobiliary w pharm 04/13/23 K80.20, R10.11 Medications New sucralfate 1 g PO BEDTIME 30 tabs 4RF R19.7 esomeprazole magnesium (Nexium) 40 mg PO DAILY 30 caps 5RF K21.9 Discontinued omeprazole Discontinued Reason: Doctor's Order 40 mg PO DAILY 90 caps 3RF K21.9 TODAY'S VISIT Patient is here today for follow-up and to discuss HIDA scan results. Patient states that she is taking Nexium in the morning and sucralfate night time and she is doing better. Patient denies having any acid reflux, denies dyspepsia, dysphagia or odynophagia. Patient states that she has been feeling better. Patient is avoiding dietary triggers. Does not eat anything that is spicy or fried. Patient is avoiding eating late at night. HIDA scan series hold discussed with patient. Patient has normal functioning gallbladder [facility] Medical History Cholelithiasis Overweight (BMI 25.0-29.9) Postprandial abdominal pain in right upper quadrant Psoriasis Surgical History H/O abdominoplasty History of esophagogastroduodenoscopy (EGD) Hx of bilateral breast reduction surgery Family History Father Diabetes mellitus Social History Housing: Apartment Alcohol intake: current Alcohol intake frequency: a few times a month Patient Tobacco Use Status: Never used Tobacco Tobacco use type: Cigarette e-Cigarette/Vaping Use: Never Used Second Hand Smoke Exposure: No service: No Current occupational status: employed Gender identity: Female Cognitive needs: No Hearing needs: No Vision needs: Yes Female Reproductive History Menstrual Age of Menarche: 13 Review of Systems Const Denies weight gain and Denies weight loss ENT Reports no additional complaints, Denies dysphagia and Denies odynophagia Card Reports no additional complaints Resp Reports no additional complaints GI Denies abdominal pain, Denies belching, Denies melena, Denies bloating, Denies change in bowel habits, Denies dysphagia, Denies excessive flatus, Denies dyspepsia, Denies heartburn, Denies diarrhea, Denies loose stools, Denies nausea, Denies odynophagia and Denies vomiting Reports no additional complaints Musc Reports no additional complaints Neuro Reports no additional complaints Psych Reports no additional complaints Endo Reports no additional complaints Physical Exam Vital Signs: Last Vital Signs Pulse 73 07/27/23 11:28 BP 103/67 05/13/23 11:28 BMI result Body Mass Index 27.2 Const General: healthy appearing, no acute distress and well developed Nutritional Appearance: well nourished Orientation/consciousness: patient oriented x3 HEENT Head: Yes normal to inspection, Yes normocephalic and Yes atraumatic Face and sinus: Yes normal facial exam Mouth: Normal oral and palatal mucosa present Throat: Yes posterior oropharynx normal, Yes tonsils normal and Yes uvula midline Eyes General: appearance normal, both eyes and all related structures Neck Neck: Yes normal visual inspection, Yes full ROM and Yes trachea midline Thyroid: Thyroid normal Resp Effort & Inspection: normal respiratory effort, able to speak in complete sentences, no tracheal deviation and symmetric chest movement Auscultation: clear to auscultation bilaterally Cardio Rate: regular rate Heart sounds: S1 normal heart sound present and S2 normal heart sound present GI Inspection: Yes normal to inspection and No distended Palpation (GI): Soft to palpation, not firm, nontender and No hepatosplenomegaly present Auscultation: normal bowel sounds General: Yes no CVA tenderness Back/Spine/Pelvis Back: no CVA tenderness Skin General skin exam: elasticity normal, turgor normal and dry skin Neuro General: patient oriented x3 Psych Appearance: grossly normal Mental Status: mental status grossly normal Speech and movement: Normal speech and movement present Affect: normal affect Results Reviewed Results Reviewed: HIDA SCAN 04/26/2023 FINDINGS: There is good concentration of activity in the liver by 5 minutes post injection. Biliary activity is visualized by 15 minutes. The gallbladder is well visualized by 50 minutes. Small bowel is well visualized by 20 minutes. At 60 minutes post radiopharmaceutical injection, a 30-minute infusion of 1.5 micrograms Sincalide was then begun and an additional 40 minutes of images were obtained. There is good emptying of the gallbladder. By the end of the study there is good clearance of activity from the liver and visualization of diffuse small bowel activity. The calculated gallbladder ejection fraction is 68% (normal gallbladder ejection fraction is greater than 35%). NM/NM hepatobiliary w pharm IMPRESSION: Visualization of the gallbladder is evidence of a patent cystic duct and strong evidence against the diagnosis of acute cholecystitis. The common bile duct is patent. Gallbladder emptying and ejection fraction are normal. Liver function appears normal. ? Assessment & Plan Assessment & Plan (1) Postprandial abdominal pain in right upper quadrant: Code(s): R10.11 - Right upper quadrant pain Plan: Patient will continue avoiding dietary triggers. Normal functioning gallbladder. (2) Cholelithiasis: Code(s): K80.20 - Calculus of gallbladder without cholecystitis without obstruction Qualifiers: Cholelithiasis location: gallbladder Cholecystitis presence: without cholecystitis Plan: Cholelithiasis without cholecystitis. Patient has normally functioning gallbladder. HIDA scan results discussed with patient. Continue low-fat diet. Avoid food that is fried. Avoid fast food (3) GERD (gastroesophageal reflux disease): Code(s): K21.9 - Gastro-esophageal reflux disease without esophagitis Qualifiers: Esophagitis presence: esophagitis presence not specified Qualified Code(s): K21.9 - Gastro-esophageal reflux disease without esophagitis Plan: Continue on Nexium. Patient can take sucralfate at nighttime as needed. Discussed with patient avoiding dietary triggers and late night snacking. Staying upright for minimum 3 hours after meals discussed with patient. I will see her in 6 months, sooner on as needed basis. Patient is agreeable to this plan and verbalizes understanding of instructions. She was given the opportunity to ask questions and all questions answered. Thank you for allowing me to participate in her care Medications: Refilled cholecalciferol (vitamin D3) 50 mcg PO DAILY 90 caps 3RF R79.89 - Other specified abnormal findings of blood chemistry Coding Level of Care Code Est Pt Level 3 (48468) Diagnoses Postprandial abdominal pain in right upper quadrant R10.11 Cholelithiasis K80.20 Cholelithiasis location: gallbladder Cholecystitis presence: without cholecystitis GERD (gastroesophageal reflux disease) K21.9 Esophagitis presence: esophagitis presence not specified Time Spent (min) 25 Comment 15 minutes spent with patient and additional 10 minutes spent reviewing her records
== END 2023-05-13 12:11 | disposition home or self-care (01) ==
PROVIDERS: PCP Internal Medicine; Visit Provider Nurse Practitioner Family
DX: R10.11 Right upper quadrant pain (principal); K80.20 Calculus of gallbladder without cholecystitis without obstruction; K21.9 Gastro-esophageal reflux disease without esophagitis
CPT/HCPCS: 99213

== ENCOUNTER → 2023-05-13 11:21 | Outpatient (BNVA) | payer OTHER, SELFPAY | PROVIDERS: PCP Internal Medicine; Visit Provider Nurse Practitioner Family | DX: K80.20 Calculus of gallbladder without cholecystitis without obstruction (principal); K21.9 Gastro-esophageal reflux disease without esophagitis; R10.11 Right upper quadrant pain | CPT/HCPCS: 99212 ==

== ENCOUNTER 2023-06-07 15:50 | Outpatient (AMB) | payer OTHER, SELFPAY ==
[2023-06-07 16:05] VITALS: BP 98/62; PULSE 51; O2SAT 99; BMI 27.2
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
== END 2023-06-07 17:31 | disposition home or self-care (01) ==
PROVIDERS: PCP Internal Medicine; Visit Provider Internal Medicine
DX: M54.9 Dorsalgia, unspecified (principal)
CPT/HCPCS: 99213

== ENCOUNTER 2023-08-06 15:16 | Outpatient (AMB) | payer OTHER, SELFPAY ==
[2023-08-06 15:18] VITALS: BP 100/70; PULSE 79; O2SAT 99; BMI 27.3
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
== END 2023-08-06 16:06 | disposition home or self-care (01) ==
PROVIDERS: PCP Internal Medicine; Visit Provider Internal Medicine
DX: M54.6 Pain in thoracic spine (principal); M25.561 Pain in right knee; M25.571 Pain in right ankle and joints of right foot; R10.33 Periumbilical pain; E55.9 Vitamin D deficiency, unspecified; E66.3 Overweight
CPT/HCPCS: 99214

== ENCOUNTER 2023-08-11 15:18 | Outpatient (REF) | payer OTHER, SELFPAY ==
--- NOTE | ~2023-08-11 | XR_ITS ---
EXAMINATION: XR KNEE, RIGHT CLINICAL INFORMATION: Pain. COMPARISON: Radiographs dated 03/24/2021. TECHNIQUE: AP, lateral, tunnel, and sunrise views of the right knee. FINDINGS: No fracture or joint effusion. Alignment is anatomic. Joint spaces are maintained. No abnormal soft tissue calcification. XR/XR knee RT 4V IMPRESSION: Normal right knee. EXAMINATION: XR LUMBOSACRAL SPINE CLINICAL INFORMATION: Pain. COMPARISON: Radiographs dated 02/10/2023. TECHNIQUE: AP and lateral views of the lumbar spine and lateral view of the lumbosacral junction. FINDINGS: The vertebral bodies and posterior elements are normal. The disc spaces are preserved and the vertebral alignment is normal. The paraspinal soft tissues are normal. IMPRESSION: Unremarkable examination.
--- NOTE | ~2023-08-11 | XR_ITS ---
EXAMINATION: XR KNEE, RIGHT CLINICAL INFORMATION: Pain. COMPARISON: Radiographs dated 03/24/2021. TECHNIQUE: AP, lateral, tunnel, and sunrise views of the right knee. FINDINGS: No fracture or joint effusion. Alignment is anatomic. Joint spaces are maintained. No abnormal soft tissue calcification. XR/XR lumbar spine 2-3V IMPRESSION: Normal right knee. EXAMINATION: XR LUMBOSACRAL SPINE CLINICAL INFORMATION: Pain. COMPARISON: Radiographs dated 02/10/2023. TECHNIQUE: AP and lateral views of the lumbar spine and lateral view of the lumbosacral junction. FINDINGS: The vertebral bodies and posterior elements are normal. The disc spaces are preserved and the vertebral alignment is normal. The paraspinal soft tissues are normal. IMPRESSION: Unremarkable examination.
--- NOTE | ~2023-08-11 | XR_ITS ---
EXAMINATION: XR ANKLE, RIGHT CLINICAL INFORMATION: Pain. COMPARISON: None available. TECHNIQUE: AP, lateral, and mortise views of the right ankle. FINDINGS: Bony alignment and mineralization are normal. The ankle mortise is intact. No fracture, dislocation or right ankle joint effusion is seen. Boehler's angle is normal. There is no calcaneal spur. There is mild soft tissue swelling adjacent to the lateral malleolus. XR/XR ankle RT min 3V IMPRESSION: 1. No fracture, dislocation or right ankle joint effusion is seen. 2. There is mild soft tissue swelling adjacent to the lateral malleolus.
== END 2023-08-11 15:19 | disposition home or self-care (01) ==
LOC: HO.XRAY 15:18
PROVIDERS: PCP Internal Medicine; Visit Provider Internal Medicine
DX: M25.571 Pain in right ankle and joints of right foot (principal); M25.561 Pain in right knee; M54.50 Low back pain, unspecified
CPT/HCPCS: 72100; 73564; 73610

== ENCOUNTER 2023-08-11 15:20 | Outpatient (REF) | payer OTHER, SELFPAY | END 2023-08-11 15:21 | disposition home or self-care (01) | LOC: HO.US 15:20 | PROVIDERS: Visit Provider Internal Medicine | DX: Z13.89 Encounter for screening for other disorder (principal) ==

== ENCOUNTER 2023-08-18 10:31 | Outpatient (AMB) | payer OTHER, SELFPAY ==
--- NOTE | 2023-08-18 10:34 | MHC.OFFVIS ---
Intake Intake Visit Reasons: IUD Removal/consult Insulation Manager Required: No Information Interpreted: non-clinical & clinical Accompanied by: Self / Same As Patient Allergies No Known Allergies [No Known Allergies*] Allergy (Verified 08/18/23 10:42) Medication List - Last Reconciled 08/18/23 by Chela Montano CNM cholecalciferol (vitamin D3) 50 mcg PO DAILY ibuprofen 800 mg PO Q8H PRN 10 days Is last menstrual period known: Yes Last menstrual period: 08/12/23 HPI IUD Removal/consult HPI Details Patient is here for a discussion about getting . She had her IUD removed around 3 months ago. She states that she has a history of always having irregular periods and they were very heavy and painful and problematic so that is why she had a Mirena put in a couple of years ago it did help with the periods but then she started having more pains with it and so she had the IUD removed about 3 months ago she said that she did have a. And she told the medical record retrieval specialist it was last but now she thinks that it was maybe a couple of or so ago and she does not really remember she texted her boyfriend about it but does not have a record on her phone either. She says she is healthy and she normally goes to the gym but she sprained her ankle and she has not been there in a week and half. She does not normally track any ovulatory symptoms. She had a baby 11 years ago and did not have to try to get she also had a about 5 years ago but it was very very early maybe 3 weeks when she had a miscarriage. She is wondering if having had that miscarriage means that she would have any trouble getting or keeping a . She is on vitamin D and she is healthy. She states she decided to get about a month or so ago. [facility] Medical History (Updated 08/18/23 @ 11:26 by Chela Montano CNM) Postprandial abdominal pain in right upper quadrant Cholelithiasis Overweight (BMI 25.0-29.9) Psoriasis Surgical History History of esophagogastroduodenoscopy (EGD) H/O abdominoplasty Hx of bilateral breast reduction surgery Family History Father Diabetes mellitus Social History Housing: Apartment Alcohol intake: current Alcohol intake frequency: a few times a month Patient Tobacco Use Status: Never used Tobacco Tobacco use type: Cigarette e-Cigarette/Vaping Use: Never Used Second Hand Smoke Exposure: No service: No Current occupational status: employed Gender identity: Female Cognitive needs: No Hearing needs: No Vision needs: Yes Female Reproductive History Menstrual Age of Menarche: 13 Date of last menstrual period: 08/12/23 Physical Exam Const Other: Deferred Results AMB Test Urine AMB Test Urine Negative Last Edit by Heike Lui CMA on 08/18/23 10:44 Results Reviewed Results Reviewed: Laboratory Last Values [facility]st Clinic Negative 08/18/23 10:43 Assessment & Plan Assessment & Plan (1) Family planning counseling: Code(s): Z30.09 - Encounter for other general counseling and advice on contraception Plan ---I discussed with pt some of the optimal strategies for planning a , including achieving the best health she can before , including heathy balanced diet, exercise, wt loss to ideal BMI if appropriate, avoiding toxic substances and medications, not smoking, and taking a multivitamin w folic acid daily. Any specific health concerns should be managed before seeking/ putting oneself at risk of pregancy. In addition I reviewed normal cycles, fertility awareness and signs of ovulation, and timing to avoid, and achieve when she feel ready. I also discussed emotional and relationship and support readiness before embarking on . Discussed the normal menstrual cycles, in terms of length of time for each part of the cycle, range of experiences for bleeding/periods, cramping and clots and the various ways of handling all of these including the various menstrual products available today and common use of non inflammatory medications such as ibuprofen to help with the cramping, and changes in vaginal and cervical discharge that occur throughout the changes in the menstrual cycle. Also discussed what is happening in the ovaries, with preparing to ovulate, ovulation, and what happens afterward as well. Discussed signs of ovulation including fertile appearing mucus, libido changes, breast changes, ovulatory pain and twinges, and the optimal /most risky times to become . Reviewed that menstrual cycles do not obey the printed calendar, but rather follow the body's own cycle discussed what can sometimes happen if the cycle is interrupted by other health events such as anovulatory cycles. Discussed other metabolic changes that have a very profound effect on menstrual cycles including weight and the increased hormones that occur in that setting. Reviewed that because of her history of abnormal irregular periods she probably will never go back to a normal regular cycle as that was not her baseline but even so it is possible to pay attention to her body symptoms and ascertain when she might be ovulating in addition she can use ovulation predictor kits to help narrow this down. Discussed that if she is trying for year and has documentation of all of the above including cycles ovulatory symptoms when she has sex and positive 0 P K's then she would be able to seek assistance from [facility] reproductive endocrinology but they currently have been declining visits unless people have documentation of all of this discussed that at this age trying for 1 year would be acceptable but it would not be prabhakar to wait longer than that as a gets harder to get after that Discussed that 1 single miscarriage early in a at 3 weeks would not increase her risk of miscarriage but that miscarriages can happen at any time. Orders: Orders AMB HCG Urine Test Today Z32.02 - Encounter for test, result negative Coding Level of Care Code Est Pt Level 3 (01491) Diagnoses Family planning counseling Z30.09
== END 2023-08-18 12:04 | disposition home or self-care (01) ==
PROVIDERS: PCP Internal Medicine; Visit Provider Advanced Practice Midwife
DX: Z30.09 Encounter for other general counseling and advice on contraception (principal); Z32.02 Encounter for pregnancy test, result negative
CPT/HCPCS: 99213

== ENCOUNTER → 2023-08-18 10:31 | Outpatient (BNVA) | payer OTHER, SELFPAY | PROVIDERS: PCP Internal Medicine; Visit Provider Advanced Practice Midwife | DX: Z30.09 Encounter for other general counseling and advice on contraception (principal) | CPT/HCPCS: 81025; 99212 ==

== ENCOUNTER 2023-10-28 14:30 | Outpatient (AMB) | payer OTHER, SELFPAY ==
--- NOTE | 2023-10-28 14:32 | A.OFFPC_ITS ---
Vital Signs 10/28/23 14:34 Height 5 ft 5 in Weight 163 lb 4 oz BMI 27.2 BP 110/72 Blood Pressure Location Lt brachial Position Sitting Intake Visit Reasons: dizziness Intake Note: Patient is here to follow up on dizziness, no nausea or vomiting . Technology Specialist Required: No Radio Electronics Technician: Not Required per policy Accompanied by: Self / Same As Patient Allergies No Known Allergies [No Known Allergies*] Allergy (Verified 11/02/23 10:05) Medication List - Last Reconciled 11/02/23 by Ab Avila MD cholecalciferol (vitamin D3) 50 mcg PO DAILY ibuprofen 800 mg PO Q8H PRN 10 days Tobacco use date assessed: 10/28/23 Dental Screening Dental Screen Date: 10/28/23 Did you have a dental visit in the last 12 months?: No Did you have a dental problem in the last 6 months where you did not have access to dental care?: No Was dental information given to patient?: Patient has dentist HPI dizziness HPI Details 33-year-old female presents to the [facility] for a sick visit. Patient is reporting symptoms of dizziness in the past few days. No loss of consciousness. Occasional ringing in the ears. No fevers or chills. No nausea or vomiting. Able to function and do activities of daily living. [facility] Medical History (Updated 08/18/23 @ 11:26 by Chela Montano CNM) Postprandial abdominal pain in right upper quadrant Cholelithiasis Overweight (BMI 25.0-29.9) Psoriasis Surgical History History of esophagogastroduodenoscopy (EGD) H/O abdominoplasty Hx of bilateral breast reduction surgery Family History Father Diabetes mellitus Social History Housing: Apartment Alcohol intake: current Alcohol intake frequency: a few times a month Patient Tobacco Use Status: Never used Tobacco Tobacco use type: Cigarette e-Cigarette/Vaping Use: Never Used Second Hand Smoke Exposure: No service: No Current occupational status: employed Gender identity: Female Cognitive needs: No Hearing needs: No Vision needs: Yes (glasses) Female Reproductive History Menstrual Age of Menarche: 13 Questionnaire PHQ-9 Over the last 2 weeks, how often have you been bothered by any of the following problems? 1. Little interest or pleasure in doing things: not at all 2. Feeling down, depressed, or hopeless: not at all 3. Trouble falling or staying asleep, or sleeping too much: not at all 4. Feeling tired or having little energy: not at all 5. Poor appetite or overeating: not at all 6. Feeling bad about yourself - or that you are a failure or have let yourself or your family down: not at all 7. Trouble concentrating on things, such as reading the newspaper or watching television: not at all 8. Moving or speaking so slowly that other people could have noticed. Or the opposite - being so fidgety or restless that you have been moving around a lot more than usual: not at all 9. Thoughts that you would be better off or of hurting yourself in some way: not at all Total score: 0 Depression Screening Interpretation: Negative Depression Screening Done: Yes Source: Developed by Drs. Delonte Manning, Renetta Childers, Carson Rodriguez and colleagues, with an educational diego from [employer]. Thrive Questionnaire Date Thrive assessed: 10/28/23 I am a: Patient What is your living situation today?: I have a steady place to live Within the past 12 months, did the food you bought not last and you didn't have the money to get more?: Never true Within the past 12 months, did you worry whether your food would run out before you got money to buy more?: Never true Do you have trouble paying for medicines?: No Do you have trouble getting transportation to medical appointments?: No Do you have trouble paying your heating and electricity bill?: No Do you have trouble taking care of your child, family member or friend?: No Do you have trouble with day-to-day activities such as bathing, preparing meals, shopping, managing finances, etc.?: No Are you currently unemployed and looking for a job?: No Are you interested in more education?: No Currently or been in a relationship where the following occur: no concerns reported AUDIT C Alcohol Use Questionnaire (AUDIT-C) 1. How often do you have a drink containing alcohol?: Never Total Score: 0 CIERRA-7 AMB Questionnaire CIERRA-7 Date CIERRA - 7 assessed: 10/28/23 Feeling nervous, anxious, or on edge: 0 = Not at all Not being able to stop or control worryin = Not at all Worrying too much about different things: 0 = Not at all Trouble relaxin = Not at all Being so restless that it is hard to sit still: 0 = Not at all Becoming easily annoyed or irritable: 0 = Not at all Feeling afraid as if something awful might happen: 0 = Not at all Total CIERRA-7 score (0-4 normal; 5-9 mild; 10-14 moderate; 15-21 severe): 0 Source: Developed by Drs. Delonte Manning, Renetta Childers, Carson Rodriguez and colleagues, with an educational diego from [employer]. Physical exam (Primary Care) Vital Signs: Last Vital Signs BP 110/72 10/28/23 14:34 BMI result Body Mass Index 27.2 Tobacco/Smoking Status: Tobacco use Status Tobacco use date assessed 10/28/23 10/28/23 14:39 Patient Tobacco Use Status Never used Tobacco 10/28/23 14:39 Tobacco use type Cigarette 10/28/23 14:39 e-Cigarette/Vaping Use Never Used 10/28/23 14:39 PHQ-9: PHQ-9 Score PHQ-9: Total score 0 10/28/23 14:39 Depression Screening Interpretation: Negative Thrive Assessment: Date of Thrive Assessment Date Thrive assessed 10/28/23 10/28/23 14:39 Currently or been in a relationship where the following occur: no concerns reported Const General: cooperative and healthy appearing Nutritional Appearance: well nourished Orientation/consciousness: patient oriented x3 Limitations: no limitations HENMT Head: Yes normal to inspection Eyes General: appearance normal, both eyes and all related structures Neck Neck: Yes normal visual inspection Chest Chest palpation & inspection: normal palpation of entire chest wall Resp Effort & Inspection: normal respiratory effort Neuro General: patient oriented x3 Assessment and Plan Assessment & Plan (1) Dizziness: Code(s): R42 - Dizziness and giddiness Plan: Self limiting illness. BW to rule out anemia. Orders: Orders Thyroid Stimulating Hormone 10/28/23 R42 - Dizziness and giddiness Basic Metabolic Panel 10/28/23 R42 - Dizziness and giddiness Complete Blood Count no Diff 10/28/23 R42 - Dizziness and giddiness Medications: Refilled cholecalciferol (vitamin D3) 50 mcg PO DAILY 90 caps 3RF R79.89 - Other specified abnormal findings of blood chemistry Coding Level of Care Code Est Pt Level 3 (75721) Diagnoses Dizziness R42
[2023-10-28 14:34] VITALS: BP 110/72; BMI 27.2
== END 2023-10-28 15:36 | disposition home or self-care (01) ==
PROVIDERS: PCP Internal Medicine; Visit Provider Internal Medicine
DX: R42 Dizziness and giddiness (principal)
CPT/HCPCS: 99213

== ENCOUNTER 2023-11-05 12:15 | Outpatient (REF) | payer OTHER, SELFPAY ==
[2023-11-05 14:01] LABS: Hematocrit 39.1 % (37.0-47.0); Hemoglobin 12.9 g/dl (12.0-16.0); Mean Corpuscular Hemoglobin 28.2 pg (27.0-33.0); Mean Corpuscular Volume 85.4 fL (80.0-98.0); Mean Platelet Volume 11.1 fL (9.4-12.3); Platelet Count 182 X10*3/uL (160-400); Red Blood Count 4.58 X10*6/uL (4.20-5.50); Red Cell Distribution Width 11.9 % (11.0-16.0); White Blood Count 5.2 X10*3/uL (4.8-10.8)
[2023-11-05 14:52] LABS: Anion Gap 12 (12-20); Blood Urea Nitrogen 10 mg/dL (9-16); Calcium 9.3 mg/dL (8.4-10.2); Carbon Dioxide 27 mmol/L (22-29); Chloride 105 mmol/L (96-108); Estimated Glomerular Filt Rate > 60; Glucose Random 125 mg/dL (60-115); Potassium 3.9 mmol/L (3.3-5.1); Sodium 140 mmol/L (135-145)
[2023-11-05 15:09] LABS: Thyroid Stimulating Hormone 0.87 uIU/mL (0.32-4.0)
== END 2023-11-05 12:16 | disposition home or self-care (01) ==
LOC: HO.LAB 12:15
PROVIDERS: PCP Internal Medicine; Visit Provider Internal Medicine
DX: R42 Dizziness and giddiness (principal)
CPT/HCPCS: 36415; 80048; 84443; 85027

== ENCOUNTER 2023-11-09 15:38 | Outpatient (REF) | payer OTHER, SELFPAY ==
[2023-11-09 16:03] LABS: Estimated Average Glucose 105 mg/dL; Hemoglobin A1c % 5.3 % (<6.0)
== END 2023-11-09 15:39 | disposition home or self-care (01) ==
LOC: HO.LAB 15:38
PROVIDERS: PCP Internal Medicine; Visit Provider Internal Medicine
DX: R73.9 Hyperglycemia, unspecified (principal)
CPT/HCPCS: 36415; 83036

== ENCOUNTER 2023-12-10 14:45 | Outpatient (AMB) | payer OTHER, SELFPAY ==
[2023-12-10 15:00] VITALS: BP 86/52; PULSE 70; RESP 17; O2SAT 96; BMI 27.1
--- NOTE | 2023-12-10 15:00 | MHC.PC.OV ---
Vital Signs 12/10/23 15:00 12/10/23 15:27 Height 5 ft 5 in Weight 163 lb 2 oz BMI 27.1 BP 86/52 L 90/60 Blood Pressure Location Lt brachial Lt brachial Position Sitting Sitting Respiration 17 Pulse 70 Pulse Source Pulse Oximeter Pulse Oximetry (%) 96 Oxygen Delivery Method Room Air Intake Visit Reasons: 4 month f/u Intake Note: Pt is here for 4 months F/U/ Low BP today and had been feeling dizzy. Crime Lab Technician Required: No Accompanied by: Other Relationship Allergies No Known Allergies [No Known Allergies*] Allergy (Verified 12/10/23 15:24) Medication List - Last Reconciled 12/10/23 by Dalton Mark MD cholecalciferol (vitamin D3) 50 mcg PO DAILY ibuprofen 800 mg PO Q8H PRN 10 days Tobacco use date assessed: 10/28/23 Dental Screening Dental Screen Date: 12/10/23 Did you have a dental visit in the last 12 months?: Yes Did you have a dental problem in the last 6 months where you did not have access to dental care?: No Was dental information given to patient?: Patient has dentist HPI 4 month f/u HPI Details Patient comes in today for her follow up visit She went to the walk-in clinic last month complaining of increased dizziness for a few days Was sent for some labs for further evaluation - all of her labs eventually came out normal States that she is still experiencing frequent dizziness with no significant improvement of her symptoms from last month States that she has noticed that her dizziness often feels worse when she gets up too fast and when she is moving around; symptoms tend to subside when she sits down still or lies down for a while She denies any increased headaches lately Denies any chest pains, no SOB No nausea/vomiting, no abdominal pain No change in bowel habits noted PFSH Medical History Postprandial abdominal pain in right upper quadrant Cholelithiasis Overweight (BMI 25.0-29.9) Psoriasis Surgical History History of esophagogastroduodenoscopy (EGD) H/O abdominoplasty Hx of bilateral breast reduction surgery Family History Father Diabetes mellitus Social History Housing: Apartment Alcohol intake: current Alcohol intake frequency: a few times a month Patient Tobacco Use Status: Never used Tobacco Tobacco use type: Cigarette e-Cigarette/Vaping Use: Never Used Second Hand Smoke Exposure: No service: No Current occupational status: employed Gender identity: Female Cognitive needs: No Hearing needs: No Vision needs: Yes (glasses) Female Reproductive History Menstrual Age of Menarche: 13 Questionnaire PHQ-9 Over the last 2 weeks, how often have you been bothered by any of the following problems? 1. Little interest or pleasure in doing things: not at all 2. Feeling down, depressed, or hopeless: not at all 3. Trouble falling or staying asleep, or sleeping too much: not at all 4. Feeling tired or having little energy: not at all 5. Poor appetite or overeating: not at all 6. Feeling bad about yourself - or that you are a failure or have let yourself or your family down: not at all 7. Trouble concentrating on things, such as reading the newspaper or watching television: not at all 8. Moving or speaking so slowly that other people could have noticed. Or the opposite - being so fidgety or restless that you have been moving around a lot more than usual: not at all 9. Thoughts that you would be better off or of hurting yourself in some way: not at all Total score: 0 Depression Screening Interpretation: Negative Depression Screening Done: Yes 80168 - PHQ-9 Billing: Yes Source: Developed by Drs. Delonte Manning, Renetta Childers, Carson Rodriguez and colleagues, with an educational diego from [employer]. Thrive Questionnaire Date Thrive assessed: 12/10/23 I am a: Patient What is your living situation today?: I have a steady place to live Within the past 12 months, did the food you bought not last and you didn't have the money to get more?: Never true Within the past 12 months, did you worry whether your food would run out before you got money to buy more?: Never true Do you have trouble paying for medicines?: No Do you have trouble getting transportation to medical appointments?: No Do you have trouble paying your heating and electricity bill?: No Do you have trouble taking care of your child, family member or friend?: No Do you have trouble with day-to-day activities such as bathing, preparing meals, shopping, managing finances, etc.?: No Are you currently unemployed and looking for a job?: No Are you interested in more education?: No Currently or been in a relationship where the following occur: no concerns reported THRIVE Score: 0 AUDIT C Alcohol Use Questionnaire (AUDIT-C) 1. How often do you have a drink containing alcohol?: Never Total Score: 0 Score Reviewed/Action Taken: Yes CIERRA-7 AMB Questionnaire CIERRA-7 Date CEIRRA - 7 assessed: 10/28/23 Source: Developed by Drs. Delonte Manning, Renetta Childers, Carson Rodriguez and colleagues, with an educational diego from [employer]. Review of Systems Const Denies chills, Reports fatigue, Denies fever(s) and Denies headache(s) ENT Denies dysphagia, Reports dizziness (recurrent over the past month), Denies otalgia, Denies headache(s), Denies neck pain, Denies odynophagia and Denies sore throat Card Denies chest pain, Denies palpitations and Denies dyspnea Resp Denies cough and Denies dyspnea GI Reports abdominal pain (recurrent, especially postprandial), Denies constipation, Denies dysphagia, Denies heartburn, Denies diarrhea, Denies nausea, Denies odynophagia and Denies vomiting Denies difficulty voiding, Denies nocturia, Denies dysuria and Denies urinary urgency Musc Reports back pain (especially over the left side), Reports arthralgias (right knee, right ankle) and Denies neck pain Skin/Breast Denies rash Neuro Reports dizziness (recurrent over the past month) and Denies headache(s) Endo Reports fatigue and Denies palpitations Carlito/Lymph Denies easy bruising Physical exam (Primary Care) Vital Signs: Last Vital Signs Pulse 70 12/10/23 15:00 Resp 17 12/10/23 15:00 BP 90/60 12/10/23 15:27 Pulse Ox 96 12/10/23 15:00 Oxygen Delivery Method Room Air 12/10/23 15:00 BMI result Body Mass Index 27.1 Tobacco/Smoking Status: Tobacco use Status Tobacco use date assessed 10/28/23 12/10/23 15:04 Patient Tobacco Use Status Never used Tobacco 12/10/23 15:04 Tobacco use type Cigarette 12/10/23 15:04 e-Cigarette/Vaping Use Never Used 12/10/23 15:04 Depression Screening Interpretation: Negative Thrive Assessment: Date of Thrive Assessment Date Thrive assessed 10/28/23 12/10/23 15:04 Currently or been in a relationship where the following occur: no concerns reported Const General: no acute distress and alert Orientation/consciousness: patient oriented x3 HENMT Ears: TM's normal bilaterally and EAC's normal Neck Neck: Yes no lymphadenopathy and Yes supple Thyroid: Thyroid normal Resp Auscultation: clear to auscultation bilaterally, no rales and no wheezes Cardio Rate: regular rate Rhythm: regular rhythm Heart sounds: no murmurs GI Palpation (GI): Soft to palpation and nontender Auscultation: normal bowel sounds General: Yes no CVA tenderness Back/Spine/Pelvis Back: no CVA tenderness Thoracic/Lumbar Spine: paraspinal muscle tenderness on the left in the upper thoracic, in the mid lumbar and in the lower lumbar and lumbar spinal tenderness Skin Rashes: no rashes Neuro General: patient oriented x3 Extrem General: Yes no clubbing, cyanosis or edema Right lower extremity: knee Details: tenderness; no swelling and ankle Details: tenderness; no swelling Results Reviewed Results Reviewed: Laboratory Tests 11/05/23 11/05/23 11/09/23 12:27 12:27 15:50 WBC 5.2 Hgb 12.9 Hct 39.1 Plt Count 182 Sodium 140 Potassium 3.9 Creatinine 0.70 Estimated GFR > 60 Random Glucose 125 H Hemoglobin A1c % 5.3 Calcium 9.3 TSH 0.87 Assessment and Plan Assessment & Plan (1) Hypotension: Code(s): I95.9 - Hypotension, unspecified Qualifiers: Hypotension type: unspecified hypotension type Qualified Code(s): I95.9 - Hypotension, unspecified Plan: Patient's blood pressure is noted to be quite low at present, confirmed on repeat BP She's had lower than usual BP readings for years but this seems to be slightly more pronounced lately She was sent for some labs when she presented to the walk-in clinic last month for increasing dizziness - labs are all normal Will send her for some additional labs as well as an EKG SAMI for further evaluation and if her labs are unrevealing, will need to consider getting additional cardiac work ups done (2) Dizziness: Code(s): R42 - Dizziness and giddiness Plan: Discussed that her increasing dizziness lately may be due to her low blood pressure lately She is being sent for some additional work ups to look into this further (3) Vitamin D deficiency: Code(s): E55.9 - Vitamin D deficiency, unspecified Plan: Continue Vitamin D3 2000 units QD (4) Psoriasis: Code(s): L40.9 - Psoriasis, unspecified Plan: Continue Fluocinonide 0.05% cream BID PRN Follow up with dermatology as scheduled Plan Follow up in 1 month Orders: Orders Comprehensive Met. Panel 12/10/23 I95.9 - Hypotension, unspecified, R42 - Dizziness and giddiness Magnesium 12/10/23 E83.42 - Hypomagnesemia, I95.9 - Hypotension, unspecified, R42 - Dizziness and giddiness Cortisol Random 12/10/23 I95.9 - Hypotension, unspecified, R42 - Dizziness and giddiness ECG 12 lead EKG 12/10/23 I95.9 - Hypotension, unspecified Complete Blood Count Auto Diff 12/10/23 D64.9 - Anemia, unspecified, I95.9 - Hypotension, unspecified, R42 - Dizziness and giddiness TSH reflex Free T4 12/10/23 I95.9 - Hypotension, unspecified, R42 - Dizziness and giddiness Insulin 12/10/23 I95.9 - Hypotension, unspecified, R42 - Dizziness and giddiness Coding Level of Care Code Est Pt Level 4 (90497) Diagnoses Hypotension, unspecified hypotension type I95.9 Hypotension type: unspecified hypotension type Dizziness R42 Vitamin D deficiency E55.9 Psoriasis L40.9
[2023-12-10 15:27] VITALS: BP 90/60
== END 2023-12-10 15:37 | disposition home or self-care (01) ==
PROVIDERS: PCP Internal Medicine; Visit Provider Internal Medicine
DX: I95.9 Hypotension, unspecified (principal); R42 Dizziness and giddiness; E55.9 Vitamin D deficiency, unspecified; L40.9 Psoriasis, unspecified
CPT/HCPCS: 99214

== ENCOUNTER → 2023-12-14 15:38 | Outpatient (REF) | payer OTHER, SELFPAY ==
--- NOTE | 2023-12-14 15:42 | ECG_ITS ---
Test Reason : HYPOTENSION Blood Pressure : / mmHG Vent. Rate : 064 BPM Atrial Rate : 064 BPM P-R Int : 134 ms QRS Dur : 080 ms QT Int : 410 ms P-R-T Axes : 043 022 038 degrees QTc Int : 422 ms Normal sinus rhythm Low voltage QRS Borderline ECG No previous ECGs available Referred By: Dalton Mark Electronically Signed By:CLARI RUIZ
[2023-12-14 15:52] LABS: MANUAL DIFF FLAG NO
[2023-12-14 16:05] LABS: Appearance Urine Clear; Color Urine Yellow; Glucose Urine UA Negative (Negative); Leukocyte Esterase Urine Trace (Negative); Nitrite Urine Negative (Negative); PH >= 9.0 (5.0-9.0); UMIC TRIGGER UACC YES; Urine Blood Negative (Negative); Urine Ketones Negative (Negative); Urine Protein Negative (Neg-Trace)
[2023-12-14 16:06] LABS: Basophils Percent Auto 0.5 % (0-2); Eosinophils Absolute Auto 0.1 X10*3/uL (0.0-0.4); Eosinophils Percent Auto 2.2 % (0-4); Hematocrit 36.7 % (37.0-47.0); Imm Gran Abs Auto 0.02 X10*3/uL (0.00-0.03); Imm Gran Pct Auto 0.4 % (0.0-0.4); Lymphocytes Absolute Auto 2.1 X10*3/uL (1.2-4.9); Lymphocytes Percent Auto 38.9 % (20-40); Mean Corpuscular HGB Conc 32.7 g/dl (31.0-35.0); Mean Corpuscular Hemoglobin 28.1 pg (27.0-33.0); Mean Corpuscular Volume 85.9 fL (80.0-98.0); Mean Platelet Volume 10.2 fL (9.4-12.3); Monocytes Absolute Auto 0.2 X10*3/uL (0.1-1.2); Monocytes Percent Auto 3.7 % (2-11); Neutrophils Percent Auto 54.3 % (45-73); Platelet Count 189 X10*3/uL (160-400); Red Blood Count 4.27 X10*6/uL (4.20-5.50); Red Cell Distribution Width 12.3 % (11.0-16.0); White Blood Count 5.5 X10*3/uL (4.8-10.8)
[2023-12-14 16:07] LABS: Bacteria Urine Trace (None Seen); Hyaline Casts Urine 0-2 /LPF (0-2); RBC Urine 0-2 /HPF (0-2); WBC Urine 0-5 /HPF (0-5)
[2023-12-14 17:07] LABS: Alanine Aminotransferase 14 U/L (0-31); Albumin Level 4.4 g/dL (3.5-5.0); Alkaline Phosphatase 72 U/L (39-117); Anion Gap 8 (12-20); Aspartate Amino Transferase 14 U/L (5-31); Bilirubin Direct 0.1 mg/dL (0.0-0.5); Bilirubin Total 0.4 mg/dL (0.0-1.0); Blood Urea Nitrogen 10 mg/dL (9-16); Calcium 9.3 mg/dL (8.4-10.2); Carbon Dioxide 29 mmol/L (22-29); Chloride 105 mmol/L (96-108); Estimated Glomerular Filt Rate > 60; Glucose Random 85 mg/dL (60-115); Lipase 33 U/L (8-78); Magnesium 2.1 mg/dL (1.6-2.6); Potassium 3.8 mmol/L (3.3-5.1); Sodium 138 mmol/L (135-145); Total Protein 7.4 g/dL (6.5-8.0)
[2023-12-14 17:29] LABS: TSH reflex Free T4 1.79 uIU/mL (0.32-4.0)
[2023-12-14 18:46] LABS: Insulin 6 uU/mL (2-29)
[2023-12-15 09:13] LABS: Cortisol Random 5.9 ug/dL
== END ==
LOC: HO.CARD 15:38
PROVIDERS: PCP Internal Medicine; Visit Provider Internal Medicine
DX: I95.9 Hypotension, unspecified (principal); R42 Dizziness and giddiness; E83.42 Hypomagnesemia; D64.9 Anemia, unspecified; R10.9 Unspecified abdominal pain
CPT/HCPCS: 36415; 80053; 81001; 82248; 82533; 83525; 83690; 83735; 84443; 85025; 93005

== ENCOUNTER → 2023-12-14 15:42 | Outpatient (BNV) | payer OTHER, SELFPAY | PROVIDERS: PCP Internal Medicine; Visit Provider Internal Medicine | DX: I95.9 Hypotension, unspecified (principal) | CPT/HCPCS: 93010 ==

== ENCOUNTER 2023-12-21 14:55 | Outpatient (AMB) | payer OTHER, SELFPAY ==
[2023-12-21 14:59] VITALS: BP 110/60; BMI 27.6
--- NOTE | 2023-12-21 14:59 | MHC.OFFVIS ---
Intake Vital Signs 12/21/23 14:59 Height 5 ft 5 in Weight 166 lb BMI 27.6 BP 110/60 Intake Visit Reasons: L breast pain Bus [employer] Required: No Information Interpreted: clinical only Route Manager: Route Manager Present Allergies No Known Allergies [No Known Allergies*] Allergy (Verified 12/21/23 14:59) Medication List - Last Reconciled 12/21/23 by Chela Montano CNM cholecalciferol (vitamin D3) 50 mcg PO DAILY ibuprofen 800 mg PO Q8H PRN 10 days Is last menstrual period known: Yes Last menstrual period: 12/14/23 Do you need a note to return to daycare/school/sports/work: No HPI L breast pain HPI Details Patient is here because she has been having breast pain for a couple of months. She feels like her breasts have changed a little bit she had a breast lift and implants placed in sent to the main go in the [facility] some years ago she feels like her breasts have changed and she is wondering if there leaking but the left 1 has been especially tender for the last couple of months and the right is also tender especially at the nipple she can not even sleep on the left side because it bothers her. She is also trying to get she has been trying for about 3 months and keeping track on her cherrie. She says her periods are regular and her last period was about 2 weeks ago. She had an a couple of years ago in [place] but she says she was about 3 weeks at the time and she was wondering if that is why she can not get . She says her partner has not had children. she has an 11 year old. REPLACED BY [facility] Medical History (Updated 12/21/23 @ 15:53 by Chela Montano CNM) Postprandial abdominal pain in right upper quadrant Cholelithiasis Overweight (BMI 25.0-29.9) Psoriasis Surgical History (Updated 12/21/23 @ 15:48 by Chela Montano CNM) History of esophagogastroduodenoscopy (EGD) H/O abdominoplasty Hx of bilateral breast reduction surgery Family History Father Diabetes mellitus Social History Housing: Apartment Alcohol intake: current Alcohol intake frequency: a few times a month Patient Tobacco Use Status: Never used Tobacco Tobacco use type: Cigarette e-Cigarette/Vaping Use: Never Used Second Hand Smoke Exposure: No service: No Current occupational status: employed Gender identity: Female Cognitive needs: No Hearing needs: No Vision needs: Yes (glasses) Female Reproductive History Menstrual Age of Menarche: 13 Duration of menses: 6-7 days Date of last menstrual period: 12/14/23 control method: none Total pregnancies: 1 Full term: 1 Date of last pap smear: 08/13/22 (negative) History of abnormal pap smear: Yes (03/07 abnormal pap) Physical Exam Vital Signs: Last Vital Signs BP 110/60 12/21/23 14:59 BMI result Body Mass Index 27.6 Chest Other: Bilateral breast exam done no masses palpable patient does have implants patient has significant scarring around the areola and then vertically down and also underneath the breast. This is true for both breasts patient believes the breast shape has sagged somewhat but it is not possible for this provider to ascertain that. Particular area of tenderness noted no mass noted other than the implants. Results Reviewed Results Reviewed: Name: Yvonne Green Age/Sex: 31/F Attending: Chela Montano CNM : 1990 Submitted by: Chela Montano CNM Copies to: Dalton Mark MD MR #: [id number] Status: DEP REF Collected: 03/05/21 Location: .LAB Received: 03/06/21 Interpretation Satisfactory for evaluation. Negative for intraepithelial lesion or malignancy. Coccobacilli consistent with shift in vaginal nena. HPV mRNA E6/E7: DETECTED This assay detects E6/E7 viral messenger RNA (mRNA) from 14 high-risk HPV types (16, 18, 31, 33, 35, 39, 45, 51, 52, 56, 58, 59, 66, 68) HPV Type 16 RNA: Not Detected HPV Type 18/45 RNA: Not Detected HPV testing performed by [facility], [place], [place]. See reference laboratory portion of the EMR for entire report. Clinical Information LMP: 02/28/21 Previous PAP test: Unknown Date/Findings Material Received ThinPrep Cervical Copies To Dalton Mark MD [address] [address] Chela Montano CNM [address] [place] [id number] Electronically Signed By: Mana Bullard MD 03/20/21 0927 The Pap Test is a screening procedure with the inherent possibility of both false negative and false positive results. Results should be Patient: Hernando Page 1 of 2 Name: Yvonne Green Age/Sex: 32/F Attending: Chela Montano CNM : 1990 Submitted by: Chela Montano CNM Copies to: MR #: [id number] Status: DEP REF Collected: 08/13/22 Location: [facility] Received: 08/13/22 Interpretation General Category: Negative for intraepithelial lesion/malignancy. Adequacy: Endocervical component present. Interpretation: Reactive cellular changes. Abundant acute inflammation Coccobacilli consistent with shift in vaginal nena. HPV mRNA E6/E7: NOT DETECTED This assay detects E6/E7 viral messenger RNA (mRNA) from 14 high-risk HPV types (16, 18, 31, 33, 35, 39, 45, 51, 52, 56, 58, 59, 66, 68) HPV testing performed by [facility], [place], [place]. See reference laboratory pion of the EMR for entire report. Clinical Information LMP: 08/11/22 Previous PAP test: 03/06/21, Abnormal Other history: +HPV Material Received ThinPrep-Cervical Electronically Signed By: Vanna Prado 08/24/22 1354 The Pap Test is a screening procedure with the inherent possibility of both false negative and false positive results. Results should be interpreted in the context of historic and current clinical findings. Reliability of the Pap Test is enhanced by performing the test on a regular repetitive basis. Patient: Yvonne Green Age/Sex: 32/F MR#: [id number] Page 1 of 1 Assessment & Plan Assessment & Plan (1) Breast pain: Comment: Bilaterally though worse on left. Code(s): N64.4 - Mastodynia (2) Hx of breast surgery: Comment: Chart states that she had breast reduction surgery however patient states that she had bilateral breast lifts and implants of saline placed in [facility]. They have been causing her pain and have change shape in the last couple of months she is wondering about leaking. Code(s): Z98.890 - Other specified postprocedural states (3) Patient desires : Comment: Reviewed cycles and keeping track of cycle intercourse and ovulation and request referral to reproductive endo if not in 6 months Code(s): Z31.9 - Encounter for procreative management, unspecified Plan ---I discussed with pt some of the optimal strategies for planning a , including achieving the best health she can before , including heathy balanced diet, exercise, wt loss to ideal BMI if appropriate, avoiding toxic substances and medications, not smoking, and taking a multivitamin w folic acid daily. Any specific health concerns should be managed before seeking/ putting oneself at risk of pregancy. In addition I reviewed normal cycles, fertility awareness and signs of ovulation, and timing to, achieve . I recommend just keeping careful records so that she can document her menses ovulation proof of ovulation with 0 P Heather's and when she has sex and if she has not achieved in 6 months to seek a referral to [facility] reproductive endocrinology but have her all of her records available to help them with the process another simple thing to do would be to ask her partner to see his doctor for a sperm count. Recommend adding folic acid to her vitamins she currently takes vitamin-D. Orders placed for a diagnostic mammogram and also for bilateral breast ultrasounds and a referral to [facility] general surgeons breast surgery. Orders: Orders US breast RT complete Today N64.4 - Mastodynia, Z98.890 - Other specified postprocedural states MM tomosynthesis diagnostic BI Today N64.4 - Mastodynia, Z98.890 - Other specified postprocedural states US breast LT complete Today N64.4 - Mastodynia, Z98.890 - Other specified postprocedural states Referrals Breast Surgery Referral N64.4 - Mastodynia, Z98.890 - Other specified postprocedural states Coding Level of Care Code Est Pt Level 3 (66669) Diagnoses Breast pain N64.4 Hx of breast surgery Z98.890 Patient desires Z31.9
== END 2023-12-21 16:03 | disposition home or self-care (01) ==
LOC: HO.HWSM 14:56
PROVIDERS: PCP Internal Medicine; Visit Provider Advanced Practice Midwife
DX: N64.4 Mastodynia (principal); Z98.890 Other specified postprocedural states; Z31.9 Encounter for procreative management, unspecified
CPT/HCPCS: 99213

== ENCOUNTER → 2023-12-21 14:55 | Outpatient (BNVA) | payer OTHER, SELFPAY | PROVIDERS: PCP Internal Medicine; Visit Provider Advanced Practice Midwife | DX: N64.4 Mastodynia (principal); Z31.9 Encounter for procreative management, unspecified; Z98.890 Other specified postprocedural states | CPT/HCPCS: 99212 ==

== ENCOUNTER 2023-12-30 09:25 | Outpatient (REF) | payer OTHER, SELFPAY | END 2023-12-30 09:26 | disposition home or self-care (01) | LOC: HO.MAMMO 09:25 | PROVIDERS: PCP Internal Medicine; Visit Provider Advanced Practice Midwife | DX: Z13.89 Encounter for screening for other disorder (principal) ==

== ENCOUNTER 2024-01-06 09:24 | Outpatient (AMB) | payer OTHER, SELFPAY ==
--- NOTE | 2024-01-06 09:25 | MHC.OFFVIS ---
Intake Vital Signs 01/06/24 09:31 Height 5 ft 5 in Weight 166 lb BMI 27.6 BP 112/70 Blood Pressure Location Rt brachial Position Sitting Pulse 71 Intake Visit Reasons: Mastodynia Intake Note: Patient referred by Chela [place] for bilateral breast pain that is worse on Lt side. Reports hx of breast lifts and implants that are causing pain and is noticing change in breast shape. Denies nipple discharge. Chief Optometry Service Required: No Accompanied by: Self / Same As Patient Allergies No Known Allergies [No Known Allergies*] Allergy (Verified 01/06/24 09:30) Medication List - Last Reconciled 01/06/24 by Tico Benson MD cholecalciferol (vitamin D3) 50 mcg PO DAILY ibuprofen 800 mg PO Q8H PRN 10 days HPI Mastodynia HPI Details 33-year-old female referred for breast pain. She describes diffuse pain on both breasts, left more than the right. She says that this been ongoing for a month. She describes this as sharp. She denies any palpable mass. She denies any nipple or skin changes She says she had breast implants 4 years ago in the [place]. She had a tummy tuck along with this. Her menarche was at age of 13. She had her 1st at age of 21. Only had 1 . She denies any family history of breast cancer. [facility] Medical History Postprandial abdominal pain in right upper quadrant Cholelithiasis Overweight (BMI 25.0-29.9) Psoriasis Surgical History History of esophagogastroduodenoscopy (EGD) H/O abdominoplasty Hx of bilateral breast reduction surgery Family History Father Diabetes mellitus Social History Housing: Apartment Alcohol intake: current Alcohol intake frequency: a few times a month Patient Tobacco Use Status: Never used Tobacco Tobacco use type: Cigarette e-Cigarette/Vaping Use: Never Used Second Hand Smoke Exposure: No service: No Current occupational status: employed Gender identity: Female Cognitive needs: No Hearing needs: No Vision needs: Yes (glasses) Female Reproductive History Menstrual Age of Menarche: 13 Review of Systems Const Denies chills and Denies fever(s) Card Denies chest pain, Denies dyspnea and Denies dyspnea on exertion Resp Denies cough, Denies dyspnea and Denies dyspnea on exertion GI Denies hematochezia and Denies change in bowel habits Denies hematuria Musc Denies back pain and Denies limited range of motion Neuro Denies focal weakness and Denies convulsions Psych Denies depression and Denies mood swings Physical Exam Vital Signs: Last Vital Signs Pulse 71 01/06/24 09:31 BP 112/70 01/06/24 09:31 BMI result Body Mass Index 27.6 Const General: comfortable and no acute distress Orientation/consciousness: patient oriented x3 Neck Neck: Yes no lymphadenopathy Chest Other: No palpable breast masses, no nipple or skin changes, no axillary lymphadenopathy Resp Auscultation: clear to auscultation bilaterally Cardio Rhythm: regular rhythm GI Palpation (GI): Soft to palpation, nontender and no guarding Neuro General: patient oriented x3 Assessment & Plan Assessment & Plan (1) Breast pain: Comment: Bilaterally though worse on left. Code(s): N64.4 - Mastodynia Plan: She has sharp breast pain, bilateral, left more than the right. She has no palpable breast masses. She does not seem to be at elevated risk for breast cancer It is likely that her sharp as pain is from her implants, with postop changes. I will order for an ultrasound of both breasts to rule out any nonpalpable mass. She understands the plan and is comfortable with this. Orders: Orders US breast LT complete Today N64.4 - Mastodynia US breast RT complete Today N64.4 - Mastodynia Coding Level of Care Code New Pt Level 3 (32824) Diagnoses Breast pain N64.4
[2024-01-06 09:31] VITALS: BP 112/70; PULSE 71; BMI 27.6
== END 2024-01-06 09:52 | disposition home or self-care (01) ==
PROVIDERS: PCP Internal Medicine; Referring Provider Advanced Practice Midwife; Visit Provider Surgery
DX: N64.4 Mastodynia (principal)
CPT/HCPCS: 99203

== ENCOUNTER → 2024-01-06 09:24 | Outpatient (BNVA) | payer OTHER, SELFPAY | PROVIDERS: PCP Internal Medicine; Referring Provider Advanced Practice Midwife; Visit Provider Surgery | DX: N64.4 Mastodynia (principal) | CPT/HCPCS: 99202 ==

== ENCOUNTER 2024-01-17 12:56 | Outpatient (AMB) | payer OTHER, SELFPAY ==
--- NOTE | 2024-01-17 12:59 | A.OFFPC_ITS ---
Vital Signs 01/17/24 13:00 Height 5 ft 5 in Weight 165 lb BMI 27.5 BP 130/60 Blood Pressure Location Lt brachial Position Sitting Intake Visit Reasons: hypotension - unknown cause Intake Note: Patient is here to follow up on hypotension. Personnel Officer Required: No Vmware Administrator: Not Required per policy Accompanied by: Self / Same As Patient Allergies No Known Allergies [No Known Allergies*] Allergy (Verified 01/17/24 13:19) Medication List - Last Reconciled 01/17/24 by Dalton Mark MD cholecalciferol (vitamin D3) 50 mcg PO DAILY ibuprofen 800 mg PO Q8H PRN 10 days Tobacco use date assessed: 01/17/24 Dental Screening Dental Screen Date: 12/10/23 HPI hypotension - unknown cause HPI Details Patient comes in today for her follow up visit States that she is still experiencing on and off dizziness and feels fatigued often She was sent for some labs and a 12-lead EKG a few weeks ago for further evaluation and she is interested in finding out how her tests came out She denies any headaches or any recent cough or cold symptoms Denies any chest pains, no SOB No nausea/vomiting, no abdominal pain No change in bowel habits noted She was seen by Dr. Benson recently for her bilateral breast pain (worse on the left side) and as she's had bilateral saline breast implants placed years ago, is being sent for bilateral breast US for further evaluation [facility] Medical History Postprandial abdominal pain in right upper quadrant Cholelithiasis Overweight (BMI 25.0-29.9) Psoriasis Surgical History History of esophagogastroduodenoscopy (EGD) H/O abdominoplasty Hx of bilateral breast reduction surgery Family History Father Diabetes mellitus Social History Housing: Apartment Alcohol intake: current Alcohol intake frequency: a few times a month Patient Tobacco Use Status: Never used Tobacco Tobacco use type: Cigarette e-Cigarette/Vaping Use: Never Used Second Hand Smoke Exposure: No service: No Current occupational status: employed Gender identity: Female Cognitive needs: No Hearing needs: No Vision needs: Yes (glasses) Female Reproductive History Menstrual Age of Menarche: 13 Questionnaire Thrive Questionnaire Date Thrive assessed: 12/10/23 CIERRA-7 AMB Questionnaire CIERRA-7 Date CIERRA - 7 assessed: 10/28/23 Source: Developed by Drs. Delonte Manning, Renetta Childers, Carson Rodriguez and colleagues, with an educational diego from [employer]. Review of Systems Const Denies chills, Reports fatigue, Denies fever(s) and Denies headache(s) Eyes Denies change in vision ENT Denies dysphagia, Reports dizziness (recurrent ), Denies otalgia, Denies headache(s), Denies neck pain, Denies odynophagia and Denies sore throat Card Denies chest pain, Denies palpitations and Denies dyspnea Resp Denies chest congestion, Denies cough and Denies dyspnea GI Reports abdominal pain (recurrent, especially postprandial), Denies constipation, Denies dysphagia, Denies heartburn, Denies diarrhea, Denies nausea, Denies odynophagia and Denies vomiting Denies difficulty voiding, Denies nocturia, Denies nipple discharge, Denies dysuria and Denies urinary urgency Musc Reports back pain (especially over the left side), Reports arthralgias (right knee, right ankle) and Denies neck pain Skin/Breast Reports breast pain (bilateral, worse on the left side), Denies nipple discharge and Denies rash Neuro Reports dizziness (recurrent ) and Denies headache(s) Endo Reports fatigue and Denies palpitations Carlito/Lymph Denies easy bruising Physical exam (Primary Care) Vital Signs: Last Vital Signs BP 130/60 01/17/24 13:00 BMI result Body Mass Index 27.5 Tobacco/Smoking Status: Tobacco use Status Tobacco use date assessed 01/17/24 01/17/24 13:04 Patient Tobacco Use Status Never used Tobacco 01/17/24 13:04 Tobacco use type Cigarette 01/17/24 13:04 e-Cigarette/Vaping Use Never Used 01/17/24 13:04 Thrive Assessment: Date of Thrive Assessment Date Thrive assessed 12/10/23 01/17/24 13:04 Const General: no acute distress and alert HENMT Ears: TM's normal bilaterally and EAC's normal Throat: Yes posterior oropharynx normal and Yes tonsils normal Neck Neck: Yes no lymphadenopathy and Yes supple Thyroid: Thyroid normal Resp Auscultation: clear to auscultation bilaterally, no rales and no wheezes Cardio Rate: regular rate Rhythm: regular rhythm Heart sounds: no murmurs GI Palpation (GI): Soft to palpation and nontender Auscultation: normal bowel sounds General: Yes no CVA tenderness Back/Spine/Pelvis Back: no CVA tenderness Thoracic/Lumbar Spine: paraspinal muscle tenderness on the left in the upper thoracic, in the mid lumbar and in the lower lumbar and lumbar spinal tenderness Skin Rashes: no rashes Extrem General: Yes no clubbing, cyanosis or edema Results Reviewed Results Reviewed: Laboratory Tests 12/14/23 12/14/23 15:51 Unknown WBC 5.5 Hgb 12.0 Hct 36.7 L Plt Count 189 Sodium 138 Potassium 3.8 Creatinine 0.65 Estimated GFR > 60 Random Glucose 85 Insulin Level 6 Calcium 9.3 Magnesium 2.1 AST 14 ALT 14 TSH 1.79 Random Cortisol 5.9 Ur Specific [place] 1.020 Urine Protein Negative Urine Glucose (UA) Negative Urine Blood Negative Urine Nitrite Negative Ur Leukocyte Esterase Trace H Assessment and Plan Assessment & Plan (1) Dizziness: Code(s): R42 - Dizziness and giddiness Plan: Patient's blood pressure was noted to be much lower than usual at her last visit a few weeks ago but appears to be much better and normal at present We were considering at the time that her increasing dizziness recently may be due to her low blood pressure but her symptoms appear to still be ongoing even though her BP appears normal today She is reassured that her EKG and all of her labs that she was sent for a few weeks ago have all come back normal Have advised that her symptoms may be due to inadequate oral fluids/dehydration/hypovolemia so she is reminded to make sure to drink plenty of fluids and stay hydrated regularly, especially as we start getting into the warmer months of spring and summer Have advised her to call if her symptoms persist or progress despite the above recommendations and instructions (2) Vitamin D deficiency: Code(s): E55.9 - Vitamin D deficiency, unspecified Plan: Continue Vitamin D3 2000 units QD (3) Psoriasis: Code(s): L40.9 - Psoriasis, unspecified Plan: Continue Fluocinonide 0.05% cream BID PRN Follow up with dermatology as scheduled Plan To return in June 2024 for her next annual physical examination Orders: Orders TSH reflex Free T4 06/10/24 E78.00 - Pure hypercholesterolemia, unspecified, Z00.00 - Encounter for general adult medical examination without abnormal findings UA CC w/rflx Micro + Cult 06/10/24 R30.0 - Dysuria, Z00.00 - Encounter for general adult medical examination without abnormal findings Vitamin D 25-OH Total 06/10/24 E55.9 - Vitamin D deficiency, unspecified, Z00.00 - Encounter for general adult medical examination without abnormal findings Complete Blood Count Auto Diff 06/10/24 D64.9 - Anemia, unspecified, Z00.00 - Encounter for general adult medical examination without abnormal findings Comprehensive Loda. Panel Fast 06/10/24 E78.00 - Pure hypercholesterolemia, unspecified, Z00.00 - Encounter for general adult medical examination without abnormal findings Lipid Panel 06/10/24 E78.00 - Pure hypercholesterolemia, unspecified, Z00.00 - Encounter for general adult medical examination without abnormal findings Coding Level of Care Code Est Pt Level 4 (84051) Diagnoses Dizziness R42 Vitamin D deficiency E55.9 Psoriasis L40.9
[2024-01-17 13:00] VITALS: BP 130/60; BMI 27.5
== END 2024-01-17 13:30 | disposition home or self-care (01) ==
PROVIDERS: PCP Internal Medicine; Visit Provider Internal Medicine
DX: R42 Dizziness and giddiness (principal); E55.9 Vitamin D deficiency, unspecified; L40.9 Psoriasis, unspecified
CPT/HCPCS: 99214

== ENCOUNTER 2024-06-29 15:10 | Outpatient (AMB) | payer OTHER, SELFPAY ==
--- NOTE | 2024-06-29 15:14 | A.OFFVIS_ITS ---
Vital Signs 06/29/24 15:17 Height 5 ft 5 in Intake Visit Reasons: s/p MRI on 06/23/24 Intake Note: MRI follow-up. Pt c/o; reports no new complaints at this time. Outside Dealer Sales Representative Required: No Accompanied by: Self / Same As Patient Allergies No Known Allergies [No Known Allergies*] Allergy (Verified 06/29/24 15:17) Medication List - Last Reconciled 06/29/24 by Tico Benson MD cholecalciferol (vitamin D3) 50 mcg PO DAILY ibuprofen 800 mg PO Q8H PRN 10 days HPI HPI s/p MRI on 06/23/24: Details: She is here for follow-up after an MRI for both breasts. She has had some chronic pain on both breasts the past several months. She had breast augmentation implants 5 years ago. She said she was very thin at that time but she has gained significant weight and feels that the breasts are no much bigger and are giving her problems with pain. She wants her implants removed at this time. [facility] Medical History Postprandial abdominal pain in right upper quadrant Cholelithiasis Overweight (BMI 25.0-29.9) Psoriasis Surgical History History of esophagogastroduodenoscopy (EGD) H/O abdominoplasty Hx of bilateral breast reduction surgery Family History Father Diabetes mellitus Social History Housing: Apartment Alcohol intake: current Alcohol intake frequency: a few times a month Patient Tobacco Use Status: Never used Tobacco Tobacco use type: Cigarette e-Cigarette/Vaping Use: Never Used Second Hand Smoke Exposure: No service: No Current occupational status: employed Gender identity: Female Cognitive needs: No Hearing needs: No Vision needs: Yes (glasses) Female Reproductive History Menstrual Age of Menarche: 13 Review of Systems Const Denies chills and Denies fever(s) Card Denies chest pain, Denies dyspnea and Denies dyspnea on exertion Resp Denies cough, Denies dyspnea and Denies dyspnea on exertion GI Denies hematochezia and Denies change in bowel habits Denies hematuria Musc Denies back pain and Denies limited range of motion Neuro Denies focal weakness and Denies convulsions Psych Denies depression and Denies mood swings Physical Exam Const General: comfortable and no acute distress Resp Effort & Inspection: normal respiratory effort Cardio Rate: regular rate Assessment & Plan Assessment & Plan (1) Breast pain: Comment: Bilaterally though worse on left. Code(s): N64.4 - Mastodynia Category: Medical Plan: She has bilateral breast pain for the past several months. She had an MRI showing no issues with both implants However, she says that when she had the augmentation with implants 5 years ago, she was very thin and now she has gained significant weight. She therefore feels that her breasts are bigger and are causing her chronic pain. She wants her breast implants removed. I told her that she will need to see a plastic surgeon for this. I gave her the phone numbers for different plastic surgeons in [place]. She can follow up with us on a p.r.n. basis. Coding Level of Care Code Est Pt Level 2 (14487) Diagnoses Breast pain N64.4
== END 2024-06-29 15:32 | disposition home or self-care (01) ==
PROVIDERS: PCP Internal Medicine; Visit Provider Surgery
DX: N64.4 Mastodynia (principal)
CPT/HCPCS: 99212

== ENCOUNTER → 2024-06-29 15:10 | Outpatient (BNVA) | payer OTHER, SELFPAY | PROVIDERS: PCP Internal Medicine; Visit Provider Surgery | DX: N64.4 Mastodynia (principal); Z98.82 Breast implant status | CPT/HCPCS: 99212 ==

== ENCOUNTER 2024-07-10 13:59 | Outpatient (AMB) | payer OTHER, SELFPAY ==
--- NOTE | 2024-07-10 14:05 | MHC.OFFWIV ---
Intake Vital Signs 07/10/24 14:06 07/10/24 14:51 07/10/24 14:52 07/10/24 14:52 Height 5 ft 5 in Weight 169 lb BMI 28.1 BP 106/70 118/88 110/88 108/78 Blood Pressure Location Rt brachial Lt brachial Lt brachial Lt brachial Position Sitting Supine Sitting Standing Pulse 68 62 75 78 Pulse Source Pulse Oximeter Pulse Oximeter Pulse Oximeter Pulse Oximeter Temp 98.2 F Temp Source Oral Pulse Oximetry (%) 98 99 99 99 Oxygen Delivery Method Room Air Room Air Room Air Room Air Intake Visit Reasons: Dizziness (cardiology) Intake Note: pt c/o dizziness. Started 3 weeks ago. Patient Tobacco Use Status: Never used Tobacco Allergies No Known Allergies [No Known Allergies*] Allergy (Verified 07/10/24 14:06) Do you need a note to return to daycare/school/sports/work: No HPI HPI Comments History of Present Illness Details Patient is a 34-year-old female complaining of dizziness. She has a history of chronic dizziness at her PCP is attributed to being hypovolemic but she states she has been eating and drinking normally for the past 3 weeks but for some reason 3 weeks ago it has been getting much worse. She states she feels off balance it is not room spinning dizziness. She denies any chest pain, shortness of breath, feeling like she is going to pass out, fevers, cough, congestion, ear pain, headaches, nausea, vomiting, changes in her hearing or vision. She states she had a miscarriage about 2 months ago and she is wondering if that has anything to do with it, she assures me she was eating and drinking normally throughout that whole process. She states she was standing at work today and felt so dizzy she needed to sit down but this did not improve her dizziness. She states it does not really matter what position she is in, no position makes it better or worse. She states she normally does not take any kind of medications to manage it she just waits until it resolves. She states she has had an EKG done in the past and she believes it was normal [facility] Medical History Postprandial abdominal pain in right upper quadrant Cholelithiasis Overweight (BMI 25.0-29.9) Psoriasis Surgical History History of esophagogastroduodenoscopy (EGD) H/O abdominoplasty Hx of bilateral breast reduction surgery Family History Father Diabetes mellitus Social History Housing: Apartment Alcohol intake: current Alcohol intake frequency: a few times a month Patient Tobacco Use Status: Never used Tobacco Tobacco use type: Cigarette e-Cigarette/Vaping Use: Never Used Second Hand Smoke Exposure: No service: No Current occupational status: employed Gender identity: Female Cognitive needs: No Hearing needs: No Vision needs: Yes (glasses) Female Reproductive History Menstrual Age of Menarche: 13 Review of Systems Const All systems reviewed & are unremarkable except as noted in HPI and below Physical Exam Vital Signs: Last Vital Signs Temp 98.2 F 07/10/24 14:06 Pulse 68 07/10/24 14:06 BP 106/70 07/10/24 14:06 Pulse Ox 98 07/10/24 14:06 Oxygen Delivery Method Room Air 07/10/24 14:06 BMI result Body Mass Index 28.1 Const General: cooperative, healthy appearing, comfortable, no acute distress and well developed Orientation/consciousness: patient oriented x3 Limitations: no limitations HEENT Head: Yes normal to inspection, Yes normocephalic and Yes atraumatic Ears: hearing grossly normal bilaterally, external ears normal and TM's normal bilaterally General nose exam: Normal external nose present Face and sinus: Yes normal facial exam Eyes General: appearance normal, both eyes and all related structures Neck Neck: Yes normal visual inspection and Yes full ROM Resp Effort & Inspection: normal respiratory effort and able to speak in complete sentences Auscultation: clear to auscultation bilaterally Cardio Rate: regular rate Rhythm: regular rhythm Heart sounds: normal S1 and S2 Skin General skin exam: no rashes or lesions noted Neuro General: patient oriented x3 Extrem General: Yes normal to inspection Office Procedures EKG [id number], Complete Assessment & Plan Assessment & Plan (1) Dizziness: Code(s): R42 - Dizziness and giddiness Plan: VSS PE unremarkable EKG in office shows no acute changes, normal sinus rhythm @69BPM (sent EKG and case to DR Cleary, discussed as EKG was reading differently, however both of us interpreted as no acute changes) Orthostatics completed show no orthostatic hypotension Will trial meclizine, also advised she should add an allergy pill daily for the drying effect and have pt follow up with PCP if no improvement in her symptoms. Plan see above Medications: New meclizine 25 mg PO BID PRN 14 tabs 0RF dizziness Coding Level of Care Code Est Pt Level 4 (78114) Diagnoses Dizziness R42 CPT Codes EKG - CPT: 64554-[id number], Complete ([id number])
[2024-07-10 14:06] VITALS: BP 106/70; PULSE 68; TEMP 36.8; O2SAT 98; BMI 28.1
[2024-07-10 14:51] VITALS: BP 118/88; PULSE 62; O2SAT 99
[2024-07-10 14:52] VITALS: BP 108/78; BP 110/88; PULSE 75; PULSE 78; O2SAT 99
== END 2024-07-10 15:10 | disposition home or self-care (01) ==
PROVIDERS: PCP Internal Medicine; Visit Provider Physician Assistant
DX: R42 Dizziness and giddiness (principal)

== ENCOUNTER → 2024-07-10 13:59 | Outpatient (BNVA) | payer OTHER, SELFPAY | PROVIDERS: PCP Internal Medicine | DX: R42 Dizziness and giddiness (principal) | CPT/HCPCS: 93005; 99212 ==

== ENCOUNTER 2024-11-09 15:47 | Outpatient (AMB) | payer OTHER, SELFPAY ==
[2024-11-09 15:50] VITALS: BP 96/66; PULSE 72; TEMP 36.3; O2SAT 99; BMI 27.3
--- NOTE | 2024-11-09 15:50 | A.OFFPC_ITS ---
Vital Signs 11/09/24 15:50 Height 5 ft 5 in Weight 164 lb 4 oz BMI 27.3 BP 96/66 Blood Pressure Location Lt brachial Position Sitting Pulse 72 Pulse Source Pulse Oximeter Temp 97.3 F Temp Source Temporal Artery Scan Pulse Oximetry (%) 99 Oxygen Delivery Method Room Air Intake Visit Reasons: gallbladder stones Vaccine Customer Representative Required: No Accompanied by: Self / Same As Patient Allergies No Known Allergies [No Known Allergies*] Allergy (Verified 11/09/24 16:15) Medication List - Last Reconciled 11/10/24 by CRISTOBAL Decker cholecalciferol (vitamin D3) 50 mcg PO DAILY ibuprofen 800 mg PO Q8H PRN 10 days meclizine 25 mg PO BID PRN omeprazole 20 mg PO DAILY Tobacco use date assessed: 11/09/24 Dental Screening Dental Screen Date: 11/09/24 Did you have a dental visit in the last 12 months?: Yes Did you have a dental problem in the last 6 months where you did not have access to dental care?: No Was dental information given to patient?: Patient has dentist HPI gallbladder stones HPI Details Patient is a 34-year-old female with significant past medical history of dizziness, hypertension, postprandial abdominal pain in the right upper quadrant, cholelithiasis, post concussive syndrome, vitamin-D deficiency Patient is reports that she was in [place] 3 weeks ago on vacation Reports that she got sick and started having abdominal pain Reports that she wants to the hospital in [place] Reports that she was told that she has gallbladder stones She reports epigastric pain She denies heartburn Reports that the pain is constant Reports that he feels like a burning sensation Reports that it hurts when she eats patient reports mid back pain: 05/27 She that she will her to describe the pain but it is constant The patient denies triggers Denies treatment Chest pain: reports in the middle of chest does not radiates no sob, hurts when she breathes more denies nausea or vomiting no tx pain was reproducible with palpation ? costochondritis [facility] Medical History Postprandial abdominal pain in right upper quadrant Cholelithiasis Overweight (BMI 25.0-29.9) Psoriasis Surgical History History of esophagogastroduodenoscopy (EGD) H/O abdominoplasty Hx of bilateral breast reduction surgery Family History Father Diabetes mellitus Social History Housing: Apartment Alcohol intake: current Alcohol intake frequency: a few times a month Patient Tobacco Use Status: Never used Tobacco Tobacco use type: Cigarette e-Cigarette/Vaping Use: Never Used Second Hand Smoke Exposure: No service: No Current occupational status: employed Gender identity: Female Cognitive needs: No Hearing needs: No Vision needs: Yes (glasses) Female Reproductive History Menstrual Age of Menarche: 13 Questionnaire PHQ-9 Over the last 2 weeks, how often have you been bothered by any of the following problems? 1. Little interest or pleasure in doing things: not at all 2. Feeling down, depressed, or hopeless: not at all 3. Trouble falling or staying asleep, or sleeping too much: not at all 4. Feeling tired or having little energy: not at all 5. Poor appetite or overeating: not at all 6. Feeling bad about yourself - or that you are a failure or have let yourself or your family down: not at all 7. Trouble concentrating on things, such as reading the newspaper or watching television: not at all 8. Moving or speaking so slowly that other people could have noticed. Or the opposite - being so fidgety or restless that you have been moving around a lot more than usual: not at all 9. Thoughts that you would be better off or of hurting yourself in some way: not at all Total score: 0 Depression Screening Interpretation: Negative Depression Screening Done: Yes 81934 - PHQ-9 Billing: Yes Source: Developed by Drs. Delonte Manning, Renetta Childers, Carson Rodriguez and colleagues, with an educational diego from [employer]. Thrive Questionnaire Date Thrive assessed: 11/09/24 I am a: Patient What is your living situation today?: I have a steady place to live Within the past 12 months, did the food you bought not last and you didn't have the money to get more?: Never true Within the past 12 months, did you worry whether your food would run out before you got money to buy more?: Never true Do you have trouble paying for medicines?: No Do you have trouble getting transportation to medical appointments?: No Do you have trouble paying your heating and electricity bill?: No Do you have trouble taking care of your child, family member or friend?: No Do you have trouble with day-to-day activities such as bathing, preparing meals, shopping, managing finances, etc.?: No Are you currently unemployed and looking for a job?: No Are you interested in more education?: No Please select the resources that you would like help with: None Currently or been in a relationship where the following occur: No concerns reported THRIVE Score: 0 AUDIT C Alcohol Use Questionnaire (AUDIT-C) 1. How often do you have a drink containing alcohol?: Never 3. How often do you have six or more drinks on one occasion?: Never Total Score: 0 Score Reviewed/Action Taken: Yes CIERRA-7 AMB Questionnaire CIERRA-7 Date CIERRA - 7 assessed: 11/09/24 Feeling nervous, anxious, or on edge: 0 = Not at all Not being able to stop or control worryin = Not at all Worrying too much about different things: 0 = Not at all Trouble relaxin = Not at all Being so restless that it is hard to sit still: 0 = Not at all Becoming easily annoyed or irritable: 0 = Not at all Feeling afraid as if something awful might happen: 0 = Not at all Total CIERRA-7 score (0-4 normal; 5-9 mild; 10-14 moderate; 15-21 severe): 0 Source: Developed by Drs. Delonte Manning, Reentta Childers, Carson Rodriguez and colleagues, with an educational diego from [employer]. CIERRA-7 Assessment Billing CIERRA-7 Assessment Tool: CIERRA-7 Assessment 28846 Review of Systems Const Details: Denies chills, Denies fatigue, Denies fever(s), Denies headache(s) and Denies weakness HEENT Denies change in vision, Denies dizziness, Denies headache(s), Denies hearing loss, Denies nasal congestion, Denies sinus pain, Denies sinus pressure and Denies sore throat Card Denies chest pain, Denies lightheadedness, Denies dyspnea and Denies other (palpitations) Resp Denies cough, Denies dyspnea and Denies wheezing GI reports abdominal pain, Denies melena, Denies hematochezia, Denies change in bowel habits, reports dyspepsia and Denies nausea Denies hematuria and Denies dysuria Musc Denies abnormal gait, reports lower back pain more in the right lateral side of her back, Denies arthralgias, Denies numbness and Denies tingling Skin/Breast Denies rash, Denies unusual bruising and Denies wounds Neuro Denies abnormal gait, Denies dizziness, Denies headache(s), Denies memory loss, Denies numbness, Denies Sensory deficit (Neuro), Denies tingling and Denies weakness Psych Denies anxiety, Denies depression and Denies memory loss Endo Denies cold intolerance, Denies fatigue, Denies heat intolerance, Denies polydipsia and Denies polyuria Carlito/Lymph Denies easy bleeding and Denies easy bruising Aller/Immun Denies wheezing Physical exam (Primary Care) Vital Signs: Last Vital Signs Temp 97.3 F 11/09/24 15:50 Pulse 72 11/09/24 15:50 BP 96/66 11/09/24 15:50 Pulse Ox 99 11/09/24 15:50 Oxygen Delivery Method Room Air 11/09/24 15:50 BMI result Body Mass Index 27.3 Tobacco/Smoking Status: Tobacco use Status Tobacco use date assessed 11/09/24 11/09/24 15:52 Patient Tobacco Use Status Never used Tobacco 11/09/24 15:52 Tobacco use type Cigarette 11/09/24 15:52 e-Cigarette/Vaping Use Never Used 11/09/24 15:52 PHQ-9: PHQ-9 Score PHQ-9: Total score 0 11/10/24 16:07 Depression Screening Interpretation: Negative Thrive Assessment: Date of Thrive Assessment Date Thrive assessed 11/09/24 11/09/24 15:52 Currently or been in a relationship where the following occur: No concerns reported Const Other: General: no acute distress, well developed, alert and awake Nutritional Appearance: well nourished Orientation/consciousness: patient oriented x3 HENMT Head: Yes normocephalic and Yes atraumatic Ears: hearing grossly normal bilaterally and TM's normal bilaterally Eyes Pupils: Equal, round and reactive pupils present and Pupil accommodation reflex normal EOM: EOMs intact bilaterally Neck Neck: Yes normal visual inspection Thyroid: Thyroid normal Lymphatic: no lymphadenopathy noted Chest Chest palpation & inspection: normal inspection of the chest Resp Effort & Inspection: normal respiratory effort Auscultation: clear to auscultation bilaterally Cardio Rate: regular rate Rhythm: regular rhythm Heart sounds: S1 normal heart sound present, S2 normal heart sound present, no gallops, no murmurs and no rubs GI Palpation (GI): Periumbilical pain with palpation Auscultation: normal bowel sounds General: Yes no CVA tenderness Back/Spine/Pelvis Back: no CVA tenderness Cervical Spine: cervical ROM normal and No Cervical spine tenderness other: right paraspinal pain with palpation Skin General: warm and dry. Normal skin color. Normal skin turgor Lesions: no lesions Nails: normal Neuro General: patient oriented x3, gait normal Cranial nerves: Yes Equal, round and reactive pupils present Cognition (Neuro): normal cognition Gait exam (Neuro): Normal gait present Extrem General: Yes normal to inspection, No edema and No calf tenderness Psych Appearance: grossly normal Affect: normal affect Attitude: cooperative Thought process: Normal thought process present Coding Level of Care Code Est Pt Level 4 (61561) Diagnoses Costochondritis M94.0 Postprandial epigastric pain R10.13 Other acute back pain M54.9 Back pain location: back pain in other location Chronicity: acute Postprandial abdominal pain in right upper quadrant R10.11 Additional Codes CIERRA-7 Assessment Billing - CIERRA-7 Assessment Tool: CIERRA-7 Assessment 72752 ([id number]) PHQ-9 - 93371 - PHQ-9 Billing: Yes ([id number]) Time Spent (min) 37 Assessment & Plan Assessment & Plan (1) Costochondritis: Code(s): M94.0 - Chondrocostal junction syndrome [Tietze] Category: Medical Plan: Patient reports chest pain worsened with deep breaths Pain is reproducible with palpation Continue ibuprofen 800 mg p.r.n. (2) Postprandial epigastric pain: Code(s): R10.13 - Epigastric pain Category: Medical Plan: Reinforced dietary restrictions Start omeprazole 20 mg daily the a.m. before meals (3) Back pain: Code(s): M54.9 - Dorsalgia, unspecified Category: Medical Qualifiers: Back pain location: back pain in other location Chronicity: acute Qualified Code(s): M54.9 - Dorsalgia, unspecified Plan: Complain of lower back pain more on the right lateral Lumbar x-ray ordered (4) Postprandial abdominal pain in right upper quadrant: Code(s): R10.11 - Right upper quadrant pain Category: Medical Plan: Reports that she was in [place] on vacation Reports started having severe abdominal pain and went to the hospital Reports that she was told that she has gallbladder stones Pain in the periumbilical area with palpation Abdominal ultrasound ordered urgently Plan The patient already had an appointment scheduled a month away Patient to keep that appointment Orders: Orders US abdomen complete 11/09/24 R10.33 - Periumbilical pain Glucose Fasting 11/09/24 E66.3 - Overweight, K80.20 - Calculus of gallbladder without cholecystitis without obstruction, M54.6 - Pain in thoracic spine, M94.0 - Chondrocostal junction syndrome [Tietze], R10.11 - Right upper quadrant pain, R42 - Dizziness and giddiness TSH reflex Free T4 11/09/24 E66.3 - Overweight, M54.6 - Pain in thoracic spine, M94.0 - Chondrocostal junction syndrome [Tietze], R10.13 - Epigastric pain, R10.30 - Lower abdominal pain, unspecified, R42 - Dizziness and giddiness UA CC w/rflx Micro + Cult 11/09/24 E66.3 - Overweight, K80.20 - Calculus of gallbladder without cholecystitis without obstruction, M94.0 - Chondrocostal junction syndrome [Tietze], R10.11 - Right upper quadrant pain, R42 - Dizziness and giddiness Lipase 11/09/24 E66.3 - Overweight, K80.20 - Calculus of gallbladder without cholecystitis without obstruction, M54.6 - Pain in thoracic spine, M94.0 - Chondrocostal junction syndrome [Tietze], R10.11 - Right upper quadrant pain, R42 - Dizziness and giddiness Lipid Panel 11/09/24 E66.3 - Overweight, M54.6 - Pain in thoracic spine, M94.0 - Chondrocostal junction syndrome [Tietze], R10.11 - Right upper quadrant pain, R10.13 - Epigastric pain, R42 - Dizziness and giddiness XR lumbar spine 2-3V 11/09/24 M54.6 - Pain in thoracic spine Complete Blood Count Auto Diff 11/09/24 E66.3 - Overweight, I95.9 - Hypotension, unspecified, K80.20 - Calculus of gallbladder without cholecystitis without obstruction, M94.0 - Chondrocostal junction syndrome [Tietze], R10.11 - Right upper quadrant pain, R42 - Dizziness and giddiness Comprehensive [place]. Panel Fast 11/09/24 E55.9 - Vitamin D deficiency, unspecified, K80.20 - Calculus of gallbladder without cholecystitis without obstruction, M54.6 - Pain in thoracic spine, M94.0 - Chondrocostal junction syndrome [Tietze], R10.11 - Right upper quadrant pain, R10.13 - Epigastric pain, R10.33 - Periumbilical pain, R42 - Dizziness and giddiness CRP High Sensitivity 11/09/24 K80.20 - Calculus of gallbladder without cholecystitis without obstruction, M54.6 - Pain in thoracic spine, M94.0 - Chondrocostal junction syndrome [Tietze], R10.11 - Right upper quadrant pain Amylase 11/09/24 K80.20 - Calculus of gallbladder without cholecystitis without obstruction, M54.6 - Pain in thoracic spine, M94.0 - Chondrocostal junction syndrome [Tietze], R10.11 - Right upper quadrant pain, R42 - Dizziness and giddiness Vitamin D 25-OH Total 11/09/24 E55.9 - Vitamin D deficiency, unspecified, M54.9 - Dorsalgia, unspecified, Z00.00 - Encounter for general adult medical examination without abnormal findings Medications: New omeprazole 20 mg PO DAILY 30 caps 3RF
== END 2024-11-09 16:44 | disposition home or self-care (01) ==
PROVIDERS: PCP Internal Medicine
DX: M94.0 Chondrocostal junction syndrome [Tietze] (principal); R10.13 Epigastric pain; M54.9 Dorsalgia, unspecified; R10.11 Right upper quadrant pain

== ENCOUNTER → 2024-11-09 15:47 | Outpatient (BNVA) | payer OTHER, SELFPAY | PROVIDERS: PCP Internal Medicine | DX: M94.0 Chondrocostal junction syndrome [Tietze] (principal); R10.13 Epigastric pain; M54.9 Dorsalgia, unspecified; R10.11 Right upper quadrant pain | CPT/HCPCS: 96127; 99212 ==

== ENCOUNTER → 2024-11-15 08:30 | Outpatient (BNV) | payer OTHER, SELFPAY | PROVIDERS: PCP Internal Medicine; Visit Provider Radiology Diagnostic Radiology | DX: K80.20 Calculus of gallbladder without cholecystitis without obstruction (principal) | CPT/HCPCS: 76700 ==

== ENCOUNTER 2024-11-20 16:07 | Outpatient (AMB) | payer OTHER, SELFPAY ==
--- NOTE | 2024-11-20 16:29 | A.OFFPC_ITS ---
Vital Signs 11/20/24 16:30 Height 5 ft 5 in Weight 167 lb BMI 27.8 BP 120/78 Blood Pressure Location Lt brachial Position Sitting Pulse 82 Pulse Source Pulse Oximeter Pulse Oximetry (%) 99 Oxygen Delivery Method Room Air Intake Visit Reasons: annual exam Intake Note: Patient is here today for a physical. Telephone Advice Nurse Required: No Accompanied by: Daughter Allergies No Known Allergies [No Known Allergies*] Allergy (Verified 11/20/24 16:49) Medication List - Last Reconciled 11/20/24 by Dalton Mark MD cholecalciferol (vitamin D3) 50 mcg PO DAILY ibuprofen 800 mg PO Q8H PRN 10 days meclizine 25 mg PO BID PRN omeprazole 20 mg PO DAILY Tobacco use date assessed: 11/09/24 Dental Screening Dental Screen Date: 11/09/24 HPI annual exam HPI Details Patient comes in today for her annual physical examination States that she continues to experience recurrent RUQ and epigastric pains that feel worse when she is eating or drinking something She recently had an abdominal US done a few days ago that revealed (+) nonmobile gallstone in the neck of the gallbladder She is scheduled to be seen by surgery tomorrow and will likely require gallbladder surgery Recalls that she went on a trip to [place] a few weeks ago when she started experiencing increased abdominal pain after arriving in [place] She went to a local ER there where she was advised after being worked up that she will need to have her gall bladder removed She declined to have the surgery done there and told them that she [place] She also has a spot on her mid-abdomen just above her umbilicus where she states she feels pain every now and then She has also noticed a small bulge over this area at times Patient states that other than her abdominal pain, she feels okay She denies any fever, headaches or dizziness Denies any chest pains, no SOB No nausea/vomiting and no change in bowel habits noted She denies any acute urinary symptoms She was not able to get her follow up labs done prior to her appointment today She had her gynecology exam and pap smear last done a couple of years ago on 08/13/2022 [facility] Medical History Postprandial abdominal pain in right upper quadrant Cholelithiasis Overweight (BMI 25.0-29.9) Psoriasis Surgical History History of esophagogastroduodenoscopy (EGD) H/O abdominoplasty Hx of bilateral breast reduction surgery Family History Father Diabetes mellitus Social History Housing: Apartment Alcohol intake: current Alcohol intake frequency: a few times a month Patient Tobacco Use Status: Never used Tobacco Tobacco use type: Cigarette e-Cigarette/Vaping Use: Never Used Second Hand Smoke Exposure: No service: No Current occupational status: employed Gender identity: Female Cognitive needs: No Hearing needs: No Vision needs: Yes (glasses) Female Reproductive History Menstrual Age of Menarche: 13 Questionnaire PHQ-9 Over the last 2 weeks, how often have you been bothered by any of the following problems? 1. Little interest or pleasure in doing things: more than half the days 2. Feeling down, depressed, or hopeless: not at all 3. Trouble falling or staying asleep, or sleeping too much: several days 4. Feeling tired or having little energy: several days 5. Poor appetite or overeating: not at all 6. Feeling bad about yourself - or that you are a failure or have let yourself or your family down: not at all 7. Trouble concentrating on things, such as reading the newspaper or watching television: not at all 8. Moving or speaking so slowly that other people could have noticed. Or the opposite - being so fidgety or restless that you have been moving around a lot more than usual: not at all 9. Thoughts that you would be better off or of hurting yourself in some way: not at all Total score: 4 Depression Screening Interpretation: Negative Depression Screening Done: Yes 62079 - PHQ-9 Billing: Yes Source: Developed by Drs. Delonte Manning, Renetta Childers, Carson Rodriguez and colleagues, with an educational diego from [employer]. Thrive Questionnaire Date Thrive assessed: 02/03/25 I am a: Patient What is your living situation today?: I have a steady place to live Within the past 12 months, did the food you bought not last and you didn't have the money to get more?: Never true Within the past 12 months, did you worry whether your food would run out before you got money to buy more?: Never true Do you have trouble paying for medicines?: No Do you have trouble getting transportation to medical appointments?: No Do you have trouble paying your heating and electricity bill?: Yes Do you have trouble taking care of your child, family member or friend?: No Do you have trouble with day-to-day activities such as bathing, preparing meals, shopping, managing finances, etc.?: No Are you currently unemployed and looking for a job?: No Are you interested in more education?: No Please select the resources that you would like help with: Utilities Currently or been in a relationship where the following occur: No concerns reported THRIVE Score: 1 AUDIT C Alcohol Use Questionnaire (AUDIT-C) 1. How often do you have a drink containing alcohol?: Monthly or less 2. How many drinks containing alcohol do you have on a typical day when you are drinking?: 1 or 2 3. How often do you have six or more drinks on one occasion?: Never Total Score: 1 Score Reviewed/Action Taken: Yes CIERRA-7 AMB Questionnaire CIERRA-7 Date CIERRA - 7 assessed: 11/20/24 Feeling nervous, anxious, or on edge: 0 = Not at all Not being able to stop or control worryin = Not at all Worrying too much about different things: 1 = Several days Trouble relaxin = Several days Being so restless that it is hard to sit still: 1 = Several days Becoming easily annoyed or irritable: 1 = Several days Feeling afraid as if something awful might happen: 0 = Not at all Total CIERRA-7 score (0-4 normal; 5-9 mild; 10-14 moderate; 15-21 severe): 4 Source: Developed by Drs. Delonte Manning, Renetta Childers, Carson Rodriguez and colleagues, with an educational diego from [employer]. Review of Systems Const Denies chills, Denies fatigue, Denies fever(s), Denies headache(s) and Denies malaise Eyes Denies blurry vision, Denies change in vision, Denies irritation and Denies itchy eyes ENT Denies dysphagia, Denies dizziness, Denies otalgia, Denies headache(s), Denies nasal congestion, Denies neck pain, Denies odynophagia, Denies sinus pain and Denies sore throat Card Denies chest pain, Denies rapid heart rate, Denies irregular heart rhythm, Denies palpitations and Denies dyspnea Resp Denies chest congestion, Denies cough, Denies dyspnea and Denies wheezing GI Reports as per HPI, Reports abdominal pain (on and off, worse when eating or drinking), Denies bloating, Denies constipation, Denies dysphagia, Denies heartburn, Denies diarrhea, Denies nausea, Denies odynophagia and Denies vomiting Denies hematuria, Denies urinary frequency, Denies dysuria, Denies urinary incontinence and Denies urinary urgency Musc Denies back pain, Denies arthralgias, Denies joint swelling, Denies muscle weakness and Denies neck pain Skin/Breast Denies breast pain, Denies breast mass, Denies change in pigmentation, Denies lesions, Denies rash and Denies unusual bruising Neuro Denies dizziness, Denies headache(s) and Denies paresthesias Psych Denies anxiety and Denies depression Endo Denies fatigue and Denies palpitations Carlito/Lymph Denies easy bruising Aller/Immun Denies itchy eyes and Denies wheezing Physical exam (Primary Care) Vital Signs: Last Vital Signs Pulse 82 11/20/24 16:30 BP 120/78 11/20/24 16:30 Pulse Ox 99 11/20/24 16:30 Oxygen Delivery Method Room Air 11/20/24 16:30 BMI result Body Mass Index 27.8 Tobacco/Smoking Status: Tobacco use Status Tobacco use date assessed 11/09/24 11/20/24 16:34 Patient Tobacco Use Status Never used Tobacco 11/20/24 16:34 Tobacco use type Cigarette 11/20/24 16:34 e-Cigarette/Vaping Use Never Used 11/20/24 16:34 PHQ-9: PHQ-9 Score PHQ-9: Total score 4 11/20/24 16:39 Depression Screening Interpretation: Negative Thrive Assessment: Date of Thrive Assessment Date Thrive assessed 11/20/24 11/20/24 16:34 Currently or been in a relationship where the following occur: No concerns reported Const General: no acute distress, alert and awake Orientation/consciousness: patient oriented x3 [facility] Head: Yes normocephalic and Yes atraumatic Ears: external ears normal, TM's normal bilaterally and EAC's normal General nose exam: No nasal discharge present Face and sinus: Yes normal facial exam and Yes sinuses nontender Teeth and gingiva: dentition normal Throat: Yes posterior oropharynx normal and Yes tonsils normal (no TP congestion) Eyes Eyelids: Yes eyelids normal Conjunctivae: conjunctivae normal Pupils: Equal, round and reactive pupils present EOM: EOMs intact bilaterally Neck Neck: Yes supple and No lymphadenopathy Thyroid: Thyroid normal Resp Auscultation: clear to auscultation bilaterally, no rales and no wheezes Cardio Rate: regular rate Rhythm: regular rhythm Heart sounds: no murmurs GI Other: (+) small nodular lesion at the mid-abdomen just above the umbilicus, lesion is slightly tender on palpation Palpation (GI): Soft to palpation, nontender, no guarding, No hepatosplenomegaly present and No Rebound tenderness present Auscultation: normal bowel sounds General: Yes no CVA tenderness Back/Spine/Pelvis Back: no CVA tenderness Thoracic/Lumbar Spine: thoracic and lumbar spine normal to inspection Skin Lesions: no lesions Rashes: no rashes Neuro General: patient oriented x3, moves all extremities, no focal motor deficits and CN's II-XI intact bilaterally Cranial nerves: Yes Equal, round and reactive pupils present Cognition (Neuro): normal cognition Gait exam (Neuro): Normal gait present Extrem General: Yes no clubbing, cyanosis or edema Coding Level of Care Code Est Pt Prev Care 18-39y(50104) Diagnoses Annual physical exam Z00.00 Calculus of gallbladder without cholecystitis without obstruction K80.20 Cholelithiasis location: gallbladder Cholecystitis presence: without cholecystitis Biliary obstruction: without biliary obstruction Umbilical hernia without obstruction and without gangrene K42.9 Vitamin D deficiency E55.9 Psoriasis L40.9 Overweight (BMI 25.0-29.9) E66.3 Cervical cancer screening Z12.4 Additional Codes PHQ-9 - 05355 - PHQ-9 Billing: Yes ([id number]) Assessment & Plan Assessment & Plan (1) Annual physical exam: Code(s): Z00.00 - Encounter for general adult medical examination without abnormal findings Category: Medical Plan: Check labs - patient is advised that her labs have already been previously ordered and that she can go and get these done at any time She is due for her yearly gynecology exam and pap smear - this was last done a couple of years ago in 2021 (2) Cholelithiasis: Code(s): K80.20 - Calculus of gallbladder without cholecystitis without obstruction Category: Medical Qualifiers: Cholelithiasis location: gallbladder Cholecystitis presence: without cholecystitis Biliary obstruction: without biliary obstruction Qualified Code(s): K80.20 - Calculus of gallbladder without cholecystitis without obstruction Plan: Abdominal US done a few days ago on 11/15/2024 revealed (+) nonmobile gallstone in the neck of the gallbladder She is scheduled to be seen by surgery tomorrow and will likely require gall bladder surgery (3) Umbilical hernia without obstruction and without gangrene: Code(s): K42.9 - Umbilical hernia without obstruction or gangrene Category: Medical Plan: Patient also has a small tender nodular lesion just above her umbilicus - adv ised patient that this may be a small supraumbilical hernia and she is instructed to have surgery evaluate this as well when she is seen tomorrow for her symptomatic gallstone (4) Vitamin D deficiency: Code(s): E55.9 - Vitamin D deficiency, unspecified Category: Medical Plan: Continue Vitamin D3 2000 units QD - Rx refilled Will check her Vitamin D level for follow up (5) Psoriasis: Code(s): L40.9 - Psoriasis, unspecified Category: Medical Plan: Continue Fluocinonide 0.05% cream BID PRN Follow up with dermatology as scheduled (6) Overweight (BMI 25.0-29.9): Code(s): E66.3 - Overweight Category: Medical Plan: Reinforced diet/exercise as tolerated/lose weight (7) Cervical cancer screening: Comment: 03/05/21 pap= neg , pos HPV- per asccp- repeat in one year./ 08/13/2022 Pap is negative with negative HPV. Code(s): Z12.4 - Encounter for screening for malignant neoplasm of cervix Category: Medical Plan: Will refer her to the [facility] to resume her yearly gynecology exam and pap smear Plan Follow up in April 2025 Orders: Referrals COPY CHIEF Referral Z12.4 - Encounter for screening for malignant neoplasm of cervix Medications: Refilled cholecalciferol (vitamin D3) 50 mcg PO DAILY 90 caps 3RF R79.89 - Other specified abnormal findings of blood chemistry
[2024-11-20 16:30] VITALS: BP 120/78; PULSE 82; O2SAT 99; BMI 27.8
== END 2024-11-20 16:49 | disposition home or self-care (01) ==
PROVIDERS: PCP Internal Medicine; Visit Provider Internal Medicine
DX: Z00.00 Encounter for general adult medical examination without abnormal findings (principal); K80.20 Calculus of gallbladder without cholecystitis without obstruction; K42.9 Umbilical hernia without obstruction or gangrene; E55.9 Vitamin D deficiency, unspecified; L40.9 Psoriasis, unspecified; E66.3 Overweight; Z12.4 Encounter for screening for malignant neoplasm of cervix

== ENCOUNTER → 2024-11-20 16:07 | Outpatient (BNVA) | payer OTHER, SELFPAY | PROVIDERS: PCP Internal Medicine; Visit Provider Internal Medicine | DX: Z00.00 Encounter for general adult medical examination without abnormal findings (principal); K80.20 Calculus of gallbladder without cholecystitis without obstruction; K42.9 Umbilical hernia without obstruction or gangrene; E55.9 Vitamin D deficiency, unspecified; E66.3 Overweight; L40.9 Psoriasis, unspecified | CPT/HCPCS: 96127; 99395 ==

== ENCOUNTER 2024-11-21 08:59 | Outpatient (AMB) | payer OTHER, SELFPAY ==
--- NOTE | 2024-11-21 09:07 | A.OFFVIS_ITS ---
Vital Signs 11/21/24 09:09 Height 5 ft 5 in Weight 164 lb BMI 27.3 BP 117/66 Blood Pressure Location Rt brachial Position Sitting Respiration 73 H Intake Visit Reasons: Calculus of GB Intake Note: Patient referred by Brandon Menchaca [employer] for Calculus of gallbladder. Patient c/o: on and off pain at RUQ. Denies nausea, vomiting, diarrhea. ABD US: 11-15-2024 Configuration Consultant Required: No Accompanied by: Self / Same As Patient Allergies No Known Allergies [No Known Allergies*] Allergy (Verified 11/21/24 09:12) HPI Comments Details: Patient presents with a several week history of episodes of right upper quadrant/epigastric pain radiating around to her back especially after meals. Because of progression of symptoms, her medical doctor order an ultrasound was demonstrates significant cholelithiasis. Patient otherwise tolerating her diet. She has regular bowel habits. He has never been jaundiced before.. Patient also has a question of a periumbilical lump or mass. She has not recall any strenuous activities. She has no trauma to the area. Chart was reviewed and patient evaluated. Past surgical history liposuction. [facility] Medical History Postprandial abdominal pain in right upper quadrant Cholelithiasis Overweight (BMI 25.0-29.9) Psoriasis Surgical History History of esophagogastroduodenoscopy (EGD) H/O abdominoplasty Hx of bilateral breast reduction surgery Family History Father Diabetes mellitus Social History Housing: Apartment Alcohol intake: current Alcohol intake frequency: a few times a month Patient Tobacco Use Status: Never used Tobacco Tobacco use type: Cigarette e-Cigarette/Vaping Use: Never Used Second Hand Smoke Exposure: No service: No Current occupational status: employed Gender identity: Female Cognitive needs: No Hearing needs: No Vision needs: Yes (glasses) Female Reproductive History Menstrual Age of Menarche: 13 Physical Exam Vital Signs: Last Vital Signs Resp 73 H 11/21/24 09:09 BP 117/66 11/21/24 09:09 BMI result Body Mass Index 27.3 Chest Other: Chest breath sounds bilaterally, HS 1 in 2 GI Other: Patient was examined both supine and standing with Valsalva. Mildly corpulent abdomen. Abdomen is soft, benign. Area of periumbilical symptoms demonstrates no obvious hernia. Question of a small lipoma. Assessment & Plan Assessment & Plan (1) Cholelithiasis: Code(s): K80.20 - Calculus of gallbladder without cholecystitis without obstruction Category: Surgical Qualifiers: Cholelithiasis location: gallbladder Cholecystitis presence: without cholecystitis Biliary obstruction: without biliary obstruction Qualified Code(s): K80.20 - Calculus of gallbladder without cholecystitis without obstruction (2) Epigastric pain: Code(s): R10.13 - Epigastric pain Category: Surgical (3) Postprandial abdominal pain in right upper quadrant: Code(s): R10.11 - Right upper quadrant pain Category: Surgical Plan Lipoma at this time will be treated conservatively. Risks, benefits, alternatives laparoscopic possible open cholecystectomy reviewed with the patient included but not limited to bleeding, infection, numbness, pain, scarring, bowel or bile duct injury or leak and the patient wishes to proceed. All questions answered. Arrangements were made for this on a day which is convenient for her. Coding Level of Care Code New Pt Level 5 (64798) Diagnoses Calculus of gallbladder without cholecystitis without obstruction K80.20 Cholelithiasis location: gallbladder Cholecystitis presence: without cholecystitis Biliary obstruction: without biliary obstruction Epigastric pain R10.13 Postprandial abdominal pain in right upper quadrant R10.11
[2024-11-21 09:09] VITALS: BP 117/66; RESP 73; BMI 27.3
== END 2024-11-21 09:13 | disposition home or self-care (01) ==
PROVIDERS: PCP Internal Medicine; Visit Provider Surgery
DX: K80.20 Calculus of gallbladder without cholecystitis without obstruction (principal); R10.13 Epigastric pain; R10.11 Right upper quadrant pain
CPT/HCPCS: 99204

== ENCOUNTER → 2024-11-21 08:59 | Outpatient (BNVA) | payer OTHER, SELFPAY | PROVIDERS: PCP Internal Medicine; Visit Provider Surgery | DX: K80.20 Calculus of gallbladder without cholecystitis without obstruction (principal); R10.13 Epigastric pain; R10.11 Right upper quadrant pain | CPT/HCPCS: 99202 ==

== ENCOUNTER 2024-12-21 08:28 | Outpatient (REF) | payer OTHER, SELFPAY ==
[2024-12-21 08:39] LABS: MANUAL DIFF FLAG NO
[2024-12-21 09:00] LABS: Appearance Urine Clear; Color Urine Yellow; Glucose Urine UA Negative (Negative); Leukocyte Esterase Urine Negative (Negative); Nitrite Urine Negative (Negative); Specific Gravity - Urine 1.025 (1.005-1.025); Urine Blood Negative (Negative); Urine Ketones Trace mg/dL (Negative); Urine Protein Negative (Neg-Trace)
[2024-12-21 09:02] LABS: Basophils Percent Auto 0.6 % (0-2); Eosinophils Absolute Auto 0.1 X10*3/uL (0.0-0.4); Eosinophils Percent Auto 1.6 % (0-4); Hemoglobin 12.4 g/dl (12.0-16.0); Imm Gran Abs Auto 0.02 X10*3/uL (0.00-0.03); Imm Gran Pct Auto 0.4 % (0.0-0.4); Lymphocytes Absolute Auto 1.5 X10*3/uL (1.2-4.9); Lymphocytes Percent Auto 29.8 % (20-40); Mean Corpuscular HGB Conc 33.5 g/dl (31.0-35.0); Mean Corpuscular Hemoglobin 28.6 pg (27.0-33.0); Mean Corpuscular Volume 85.5 fL (80.0-98.0); Mean Platelet Volume 10.3 fL (9.4-12.3); Monocytes Absolute Auto 0.2 X10*3/uL (0.1-1.2); Monocytes Percent Auto 4.1 % (2-11); Neutrophils Absolute Auto 3.1 x10*3/uL (2.0-8.3); Neutrophils Percent Auto 63.5 % (45-73); Platelet Count 168 X10*3/uL (160-400); Red Blood Count 4.33 X10*6/uL (4.20-5.50); Red Cell Distribution Width 12.3 % (11.0-16.0); White Blood Count 4.9 X10*3/uL (4.8-10.8)
[2024-12-21 09:33] LABS: Alanine Aminotransferase 33 U/L (0-31); Albumin Level 4.3 g/dL (3.5-5.0); Alkaline Phosphatase 68 U/L (39-117); Amylase 62 U/L (28-100); Anion Gap 8 (12-20); Aspartate Amino Transferase 21 U/L (5-31); Bilirubin Total 0.7 mg/dL (0.0-1.0); Blood Urea Nitrogen 8 mg/dL (9-16); Carbon Dioxide 27 mmol/L (22-29); Chloride 109 mmol/L (96-108); Cholesterol 129 mg/dL (<200); Estimated Glomerular Filt Rate > 60; Glucose Fasting 91 mg/dL (60-99); HDL Cholesterol 40 mg/dL (>40); LDL Cholesterol Calculated 75 mg/dL (<100); Lipase 19 U/L (8-78); Potassium 4.2 mmol/L (3.3-5.1); Sodium 140 mmol/L (135-145); Total Protein 7.7 g/dL (6.5-8.0); Triglycerides 71 mg/dL (<150)
[2024-12-21 09:49] LABS: TSH reflex Free T4 1.41 uIU/mL (0.32-4.0)
[2024-12-23 02:39] LABS: CRP High Sensitivity 3.6 mg/L
== END 2024-12-21 08:29 | disposition home or self-care (01) ==
LOC: HO.LAB 08:28
PROVIDERS: PCP Internal Medicine; Visit Provider Internal Medicine
DX: Z00.00 Encounter for general adult medical examination without abnormal findings (principal); R42 Dizziness and giddiness; K80.20 Calculus of gallbladder without cholecystitis without obstruction; R10.11 Right upper quadrant pain; M94.0 Chondrocostal junction syndrome [Tietze]; E66.3 Overweight; M54.6 Pain in thoracic spine; R10.13 Epigastric pain; I95.9 Hypotension, unspecified; R10.30 Lower abdominal pain, unspecified; E55.9 Vitamin D deficiency, unspecified; R10.33 Periumbilical pain; M54.9 Dorsalgia, unspecified
CPT/HCPCS: 36415; 80053; 80061; 81003; 82150; 82306; 83690; 84443; 85025; 86141

== ENCOUNTER 2024-12-22 06:49 | Day surgery (SDC) | payer OTHER, SELFPAY ==
[2024-12-20 13:01] VITALS: BMI 27.3
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
--- NOTE | 2024-12-21 11:35 | MHC.SHP ---
Pre-Procedural Eval Section A - 24 Hr Update-Section A only Date of Service: 12/22/24 The patient is an INPATIENT: No Changes since office visit: No Cold of Flu in the past 2 weeks, No New Medical Problems, No Changes in Medication and No Patient answered all questions Section B - Complete if H&P > 30 days Chief Complaint: Epigastric pain,R quadrant pain, Allergies: Allergies Allergy/AdvReac Type Severity Reaction Status Date / Time No Known Allergies Allergy Verified 11/21/24 09:12 [No Known Allergies*] Review of Systems Sugical H&P ROS: Negative: Constitution, Cardiovascular, Respiratory, Neurological, Psychiatric, Hem-Onc, Allergic/Immunologic, Gastrointestinal, Genitourinary, Musculoskeletal, Integumentary, Endocrine and Eyes/Ears/Nose/Throat Exam Surgical H&P Exam: Normal: HEENT, Normal: Heart, Normal: Lungs, Normal: Extremities, Normal: Abdomen, Normal: Skin and Normal: Neurological Plan I have reviewed the history and physical and performed a pertinent physical examination on my patient. No changes have occurred unless specified. Time Spent With Patient Time: Total time managing care of this patient today ____ minutes.
[2024-12-22] VITALS (11 sets, daily range): BP systolic 97–113; BP diastolic 53–73; PULSE 57–90; RESP 12–20; TEMP 36.1–37.2; O2SAT 97–100
[2024-12-22 07:18] LABS: UPreg QC Valid YES; Urine Pregnancy NEGATIVE (NEGATIVE)
[2024-12-22] MEDS: Lactated Ringers 1,000 ML 100 ML IVCONT (07:20)
--- NOTE | 2024-12-22 09:54 | W.PM.OPN ---
Operative Note Operative Note Date of Service: 12/22/24 Narrative: Preoperative diagnosis: [] Symptomatic gallbladder Postop diagnosis: [] The same Procedure [] laparoscopic cholecystectomy, core biopsy of hepatic mass x2 Surgeon: [] Ruben Genetic Technologist: [] Lucy Type of Anesthesia: [] General Indication for surgery: [] Gallbladder with omental adhesions to it. Moderately intrahepatic gallbladder. A roughly 4 x 4 cm mass involving the liver just lateral to the gallbladder fossa. Core biopsy taken for final diagnosis. Findings: [] Patient brought to the operating room, placed on operative table supine position, after an adequate level of general anesthesia was induced, the patient's abdomen was prepped and draped in usual sterile fashion. Using a supraumbilical curvilinear incision, Hollis technique was used to insufflate abdominal cavity to 15 mm of CO2. Upper midline and right subcostal ports were placed under direct laparoscopic view, and the patient placed in reverse Trendelenburg position, and tilted to the left. Findings were as noted above. Gallbladder was grasped using laparoscopic graspers and retracted superiorly and laterally. Soft omental adhesions were swept off the gallbladder where the hilum was approached. Cystic artery and cystic duct were each identified, circumferentially skeletonized, traced directly into the gallbladder, and critical view obtained. Each was clipped proximally x2, distally x1, and transected. The gallbladder which was moderately intrahepatic was then cauterized from the gallbladder fossa using Bovie. Specimen placed in an Endo-Catch bag, a retrieved through the umbilical port. Incidental finding of mass of the right lobe of the liver just lateral to the gallbladder fossa underwent 2 core biopsies with good specimen retrieved. Hemostasis secured. Abdominal cavity was copiously irrigated and secured hemostasis. All ports removed under direct laparoscopic view. Wounds were closed in the following manner; umbilical wound had it is fascia reapproximated using interrupted 0 Vicryl sutures. Skin wounds were closed using subcuticular 4-0 Vicryl sutures followed by Steri-Strips and sterile dressings. Wounds were infiltrated 0.5% Marcaine at completion. Sponge, needle, and instrument counts reported correct. Patient tolerated the procedure well and emerged from anesthesia stable condition. EBL minimal
[2024-12-22] MEDS: fentaNYL citrate/PF 100 MCG/2 ML VIAL 25 MCG IVPUSH ×4 (10:22→10:37)
[2024-12-22] MEDS: oxyCODONE HCl Immed Release 5 MG TABLET PO (10:46)
[2024-12-22] MEDS: Haloperidol Lactate 5 MG/ML VIAL 1 MG IVPUSH (11:17)
== END 2024-12-22 12:02 | disposition home or self-care (01) ==
PROVIDERS: Nurse Practitioner; PCP Internal Medicine; Visit Provider Surgery
PROC: 0FT44ZZ Resection of Gallbladder, Percutaneous Endoscopic Approach (ICD-10-PCS; CPT 47562; principal; 2024-12-22 08:40)
DX: K80.10 Calculus of gallbladder with chronic cholecystitis without obstruction (principal); K82.8 Other specified diseases of gallbladder; Q44.1 Other congenital malformations of gallbladder; K66.0 Peritoneal adhesions (postprocedural) (postinfection); L40.9 Psoriasis, unspecified; K76.9 Liver disease, unspecified; E66.3 Overweight; Z68.27 Body mass index [BMI] 27.0-27.9, adult; Z98.890 Other specified postprocedural states
CPT/HCPCS: 47562; 47000; 81025; 88304; 88307; 88313; 88341; 88342; J0131; J0690; J1100; J1630; J1885; J2003; J2250; J2405; J2704; J2795; J3010

== ENCOUNTER → 2024-12-22 06:49 | Outpatient (BNV) | payer OTHER, SELFPAY | PROVIDERS: PCP Internal Medicine; Visit Provider Surgery | DX: K80.20 Calculus of gallbladder without cholecystitis without obstruction (principal); K76.89 Other specified diseases of liver | CPT/HCPCS: 47000; 47562 ==

== ENCOUNTER 2024-12-28 08:34 | Outpatient (AMB) | payer OTHER, SELFPAY ==
--- NOTE | 2024-12-28 08:40 | MHC.OFFVIS ---
Intake Visit Reasons: s/p lap zeynep Intake Note: Yvonne present in the office as a follow up lap zeynep. CC: Allergies No Known Allergies [No Known Allergies*] Allergy (Verified 11/21/24 09:12) HPI Comments Details: Patient was tolerating diet. Little constipated but otherwise no other GI issues or complaints. Incidentally, patient states she has had some very heavy menstruation and has been little bit lightheaded . She is slowly but steadily increasing her activity level. Minimal incisional discomfort. [facility] Medical History Postprandial abdominal pain in right upper quadrant Overweight (BMI 25.0-29.9) Psoriasis Surgical History (Reviewed 12/22/24 @ : by Beba Joseph MD) History of esophagogastroduodenoscopy (EGD) H/O abdominoplasty Hx of bilateral breast reduction surgery Family History (Reviewed 12/22/24 @ : by Beba Joseph MD) Father Diabetes mellitus Social History (Reviewed 12/22/24 @ : by Beba Joseph MD) Housing: Apartment Alcohol intake: current Alcohol intake frequency: a few times a month Patient Tobacco Use Status: Never used Tobacco Tobacco use type: Cigarette e-Cigarette/Vaping Use: Never Used Second Hand Smoke Exposure: No service: No Current occupational status: employed Gender identity: Female Cognitive needs: No Hearing needs: No Vision needs: Yes (glasses) Female Reproductive History Menstrual Age of Menarche: 13 Physical Exam Eyes Other: Anicteric GI Other: Abdomen is soft. All wounds clean dry and intact Assessment & Plan Assessment & Plan (1) Status post laparoscopic cholecystectomy: Code(s): Z90.49 - Acquired absence of other specified parts of digestive tract Category: Medical Plan From a surgical perspective, patient was doing well. I have strongly recommended she contact her geodesist physician regarding heavy menstruation which she says she will do. Patient will otherwise follow-up p.r.n.. All questions answered. Coding Level of Care Code Global (20686) Diagnoses Status post laparoscopic cholecystectomy Z90.49
== END 2024-12-28 08:47 | disposition home or self-care (01) ==
LOC: HO.HGS 08:35
PROVIDERS: PCP Internal Medicine; Visit Provider Surgery
DX: Z90.49 Acquired absence of other specified parts of digestive tract (principal)
CPT/HCPCS: 99024

== ENCOUNTER → 2024-12-28 08:34 | Outpatient (BNVA) | payer OTHER, SELFPAY | PROVIDERS: PCP Internal Medicine; Visit Provider Surgery | DX: Z09 Encounter for follow-up examination after completed treatment for conditions other than malignant neoplasm (principal); Z90.49 Acquired absence of other specified parts of digestive tract | CPT/HCPCS: 99212 ==

== ENCOUNTER 2025-01-02 11:24 | Outpatient (AMB) | payer OTHER, SELFPAY ==
[2025-01-02 11:30] VITALS: BP 100/60; BMI 26.6
--- NOTE | 2025-01-02 11:30 | MHC.OFFVIS ---
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 Her regular normal menses came on December 14, which was right after she had had sex. She had emergency gallbladder surgery on the And 5 days later she started bleeding very heavy it is now just spotting She went and got checked at the general surgeons and was told that it would have had nothing to do with the surgery. She is healing well from her surgery she is just trying to eat a little spot cleaner. she is actually trying to get the test done right before the surgery was negative. [facility] Medical History (Updated 01/02/25 @ 12:26 by Chela Montano CNM) Postprandial abdominal pain in right upper quadrant Overweight (BMI 25.0-29.9) Psoriasis Surgical History (Updated 01/02/25 @ 11:37 by Stephie Huff CMA) History of cholecystectomy History of esophagogastroduodenoscopy (EGD) H/O abdominoplasty Hx of bilateral breast reduction surgery Family History Father Diabetes mellitus Social History Housing: Apartment Alcohol intake: current Alcohol intake frequency: a few times a month Patient Tobacco Use Status: Never used Tobacco Tobacco use type: Cigarette e-Cigarette/Vaping Use: Never Used Second Hand Smoke Exposure: No service: No Current occupational status: employed Gender identity: Female Cognitive needs: No Hearing needs: No Vision needs: Yes (glasses) Female Reproductive History Menstrual Age of Menarche: 13 Date of last menstrual period: 12/08/24 control method: none Total pregnancies: 2 Full term: 1 Physical Exam Vital Signs: Last Vital Signs BP 100/60 01/02/25 11:30 BMI result Body Mass Index 26.6 Other: Normal speculum exam vagina is pink and moist healthy clear shiny mucus cervix is multiparous pink smooth mobile nontender uterus midposition mobile nontender adnexa nontender not enlarged there is no softening to the cervix or uterus, indicative of a . Adnexa nontender good tone with Kegel. External Female Exam: normal external appearance Speculum Exam - Vagina: normal appearance of the vagina and normal vaginal discharge Speculum Exam - Cervix: normal appearance of the cervix Bimanual exam- vagina & uterus: normal bimanual exam, uterine size normal, consistency normal, uterine mobility normal, uterine shape normal and non-tender Bimanual Exam- Adnexa, other: normal adnexae, no masses and No adnexal tenderness Results AMB Test Urine AMB Test Urine Negative Last Edit by Stephie Huff CMA on 01/02/25 12:20 Results Reviewed Results Reviewed: test done after the exam=negative. Assessment & Plan Assessment & Plan (1) Family planning counseling: Code(s): Z30.09 - Encounter for other general counseling and advice on contraception Category: Medical (2) Patient desires : Comment: Reviewed cycles and keeping track of cycle intercourse and ovulation and request referral to reproductive endo if not in 6 months Code(s): Z31.9 - Encounter for procreative management, unspecified Category: Medical (3) History of irregular menstrual bleeding: Comment: Bled several days after gallbladder surgery midcycle heavy for 5 days....preg test neg. Code(s): Z87.42 - Personal history of other diseases of the female genital tract Category: Medical (4) test negative: Code(s): Z32.02 - Encounter for test, result negative Category: Medical Plan Reviewed that yes it is certainly possible that she had an extremely early miscarriage ever as test is and it was essentially midcycle. Sometimes stressors to the Body can affect the menstrual cycle such as the surgery anesthesia. She will have to pay attention to when her next period comes is no telling this point. Reviewed healthy self-care in planning which she is already doing and she is in fact NAV healthier now that she has had her gallbladder surgery and eating spot cleaner. Discussed multivitamin with folic Discussed her obstetrical history she has had a miscarriage but she also had a healthy delivered in [place] some years ago. Discussed that we can do care for women no medical complications and no obstetrical complications. But that deliveries would happen [facility]. And important testing and ultrasounds would happen [facility] as well. The alternative is to initiate all care from the start where she deliver and options include [facility] and [facility] as well as others. Orders: Orders AMB HCG Urine Test Today Z32.02 - Encounter for test, result negative Coding Level of Care Code Est Pt Level 3 (95432) Diagnoses Family planning counseling Z30.09 Patient desires Z31.9 History of irregular menstrual bleeding Z87.42 test negative Z32.02
== END 2025-01-02 12:21 | disposition home or self-care (01) ==
LOC: HO.HWSM 11:25
PROVIDERS: PCP Internal Medicine; Visit Provider Advanced Practice Midwife
DX: Z30.09 Encounter for other general counseling and advice on contraception (principal); Z31.9 Encounter for procreative management, unspecified; Z87.42 Personal history of other diseases of the female genital tract; Z32.02 Encounter for pregnancy test, result negative
CPT/HCPCS: 99213

== ENCOUNTER → 2025-01-02 11:24 | Outpatient (BNVA) | payer OTHER, SELFPAY | PROVIDERS: PCP Internal Medicine; Visit Provider Advanced Practice Midwife | DX: Z30.09 Encounter for other general counseling and advice on contraception (principal); Z31.9 Encounter for procreative management, unspecified; Z32.02 Encounter for pregnancy test, result negative; Z87.42 Personal history of other diseases of the female genital tract | CPT/HCPCS: 81025; 99212 ==

== ENCOUNTER 2025-01-10 10:54 | Outpatient (AMB) | payer OTHER, SELFPAY ==
[2025-01-10 11:01] VITALS: BP 100/74; PULSE 79; RESP 16; TEMP 37.1; O2SAT 99; BMI 26.9
--- NOTE | 2025-01-10 11:01 | A.OFFPC_ITS ---
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 Accompanied by: Self / Same As Patient Allergies No Known Allergies [No Known Allergies*] Allergy (Verified 01/10/25 11:24) Medication List - Last Reconciled 01/10/25 by CRISTOBAL Decker cholecalciferol (vitamin D3) 50 mcg PO DAILY Tobacco use date assessed: 01/10/25 Dental Screening Dental Screen Date: 01/10/25 Did you have a dental visit in the last 12 months?: Yes Did you have a dental problem in the last 6 months where you did not have access to dental care?: No Was dental information given to patient?: Patient has dentist HPI follow up HPI Details The patient is 34 year old female presenting for follow up appt and lab review The patient is s/p cholecystectomy. The patient reports that she had an miscarriage the day after her surgery even though her test was negative the day before surgery. She is mentally trying to cope with this and has been getting a lot of help from her mother and sister. She reports that she is not interested in talking to anyone except family at this time Reports that she is not mentally ready to go back to work as yet And we will need sometimes the process her loss Patient reports that she she has been having headaches and dizziness Reports that a liver mass was found and biopsy during her surgery; she was told that it was benign Will allow six weeks out of work to get [facility] Medical History Postprandial abdominal pain in right upper quadrant Overweight (BMI 25.0-29.9) Psoriasis Surgical History History of cholecystectomy History of esophagogastroduodenoscopy (EGD) H/O abdominoplasty Hx of bilateral breast reduction surgery Family History Father Diabetes mellitus Social History Housing: Apartment Alcohol intake: current Alcohol intake frequency: a few times a month Patient Tobacco Use Status: Never used Tobacco Tobacco use type: Cigarette e-Cigarette/Vaping Use: Never Used Second Hand Smoke Exposure: No service: No Current occupational status: employed Gender identity: Female Cognitive needs: No Hearing needs: No Vision needs: Yes (glasses) Female Reproductive History Menstrual Age of Menarche: 13 Date of last menstrual period: 12/24/24 Questionnaire PHQ-9 Over the last 2 weeks, how often have you been bothered by any of the following problems? 1. Little interest or pleasure in doing things: not at all 2. Feeling down, depressed, or hopeless: not at all 3. Trouble falling or staying asleep, or sleeping too much: not at all 4. Feeling tired or having little energy: nearly every day 5. Poor appetite or overeating: several days 6. Feeling bad about yourself - or that you are a failure or have let yourself or your family down: not at all 7. Trouble concentrating on things, such as reading the newspaper or watching television: not at all 8. Moving or speaking so slowly that other people could have noticed. Or the opposite - being so fidgety or restless that you have been moving around a lot more than usual: several days 9. Thoughts that you would be better off or of hurting yourself in some way: not at all Total score: 5 Depression Screening Interpretation: Positive Depression Screening Done: Yes Source: Developed by Drs. Delonte Manning, Renetta Childers, Carson Rodriguez and colleagues, with an educational diego from [employer]. Thrive Questionnaire Date Thrive assessed: 01/10/25 I am a: Patient What is your living situation today?: I have a steady place to live Within the past 12 months, did the food you bought not last and you didn't have the money to get more?: Never true Within the past 12 months, did you worry whether your food would run out before you got money to buy more?: Never true Do you have trouble paying for medicines?: No Do you have trouble getting transportation to medical appointments?: No Do you have trouble paying your heating and electricity bill?: Yes Do you have trouble taking care of your child, family member or friend?: No Do you have trouble with day-to-day activities such as bathing, preparing meals, shopping, managing finances, etc.?: No Are you currently unemployed and looking for a job?: No Are you interested in more education?: No Please select the resources that you would like help with: Utilities Currently or been in a relationship where the following occur: No concerns reported THRIVE Score: 1 AUDIT C Alcohol Use Questionnaire (AUDIT-C) 1. How often do you have a drink containing alcohol?: Never 3. How often do you have six or more drinks on one occasion?: Never Total Score: 0 Score Reviewed/Action Taken: Yes CIERRA-7 AMB Questionnaire CIERRA-7 Date CIERRA - 7 assessed: 01/10/25 Feeling nervous, anxious, or on edge: 3 = Nearly every day Not being able to stop or control worryin = Not at all Worrying too much about different things: 0 = Not at all Trouble relaxin = Not at all Being so restless that it is hard to sit still: 0 = Not at all Becoming easily annoyed or irritable: 0 = Not at all Feeling afraid as if something awful might happen: 0 = Not at all Total CIERRA-7 score (0-4 normal; 5-9 mild; 10-14 moderate; 15-21 severe): 3 Source: Developed by Drs. Delonte Manning, Renetta Childers, Carson Rodriguez and colleagues, with an educational diego from [employer]. Review of Systems Const Reports headache(s) ENT Reports dizziness, Reports headache(s) and Denies sore throat Card Denies chest pain, Denies leg edema and Denies lightheadedness Resp Denies cough and Denies hemoptysis GI Denies abdominal pain, Denies melena, Denies constipation, Denies diarrhea and Denies vomiting Denies urinary frequency, Denies dysuria and Denies urinary urgency Neuro Denies Abnormal speech present, Reports dizziness and Reports headache(s) Psych Reports anxiety, Reports depression and Denies panic attacks Physical exam (Primary Care) Vital Signs: Last Vital Signs Temp 98.8 F 01/10/25 11:01 Pulse 79 01/10/25 11:01 Resp 16 01/10/25 11:01 BP 100/74 01/10/25 11:01 Pulse Ox 99 01/10/25 11:01 Oxygen Delivery Method Room Air 01/10/25 11:01 BMI result Body Mass Index 26.9 Tobacco/Smoking Status: Tobacco use Status Tobacco use date assessed 01/10/25 01/10/25 11:13 Patient Tobacco Use Status Never used Tobacco 01/10/25 11:13 Tobacco use type Cigarette 01/10/25 11:13 e-Cigarette/Vaping Use Never Used 01/10/25 11:13 PHQ-9: PHQ-9 Score PHQ-9: Total score 5 01/21/25 22:25 Depression Screening Interpretation: Positive Thrive Assessment: Date of Thrive Assessment Date Thrive assessed 01/10/25 01/10/25 11:13 Currently or been in a relationship where the following occur: No concerns reported Const General: healthy appearing, no acute distress, alert and awake Nutritional Appearance: well nourished Orientation/consciousness: oriented to person, oriented to place and oriented to time HENMT Ears: TM's normal bilaterally General nose exam: Normal nasal mucous membranes and turbinates present Eyes Conjunctivae: conjunctivae normal Sclerae: sclerae normal Pupils: Equal, round and reactive pupils present Neck Neck: Yes no lymphadenopathy and Yes no JVD Thyroid: Thyroid normal Carotids: no bruits Resp Effort & Inspection: normal respiratory effort and not tachypneic Auscultation: no crackles, no rales, no rhonchi and no wheezes Cardio Rate: regular rate Rhythm: regular rhythm Heart sounds: no murmurs and normal S1 and S2 GI Palpation (GI): Soft to palpation, nontender, no hepatomegaly and no splenomegaly Auscultation: normal bowel sounds Skin General skin exam: no rashes or lesions noted and dry skin Neuro General: oriented to person, oriented to place and oriented to time Cranial nerves: Yes Equal, round and reactive pupils present Speech: No Abnormal speech present Gait exam (Neuro): Normal gait present Motor exam (neuro): no tremor noted Extrem Right upper extremity: full ROM Left upper extremity: full ROM Right lower extremity: full ROM; no edema Left lower extremity: full ROM; no edema Psych Mental Status: mental status grossly normal Speech and movement: Normal speech and movement present Affect: normal affect Attitude: cooperative Thought process: Normal thought process present Coding Level of Care Code Est Pt Level 4 (06370) Diagnoses Status post laparoscopic cholecystectomy Z90.49 Dizziness R42 Vitamin D deficiency E55.9 Nonintractable headache, unspecified chronicity pattern, unspecified headache type R51.9 Headache type: unspecified Headache chronicity pattern: unspecified pattern Intractability: not intractable Situational depression F43.21 Time Spent (min) 39 Assessment & Plan Assessment & Plan (1) Status post laparoscopic cholecystectomy: Code(s): Z90.49 - Acquired absence of other specified parts of digestive tract Category: Surgical Plan: s/p cholecystectomy. Reports that a small liver mass was removed and biopsied as well. Reports that she was told that it was benign. The patient surgery went well but mentally she is not doing well because she had a miscarriage the day after the surgery even though she had a negative test the day before the procedure. Encouraged CBT- the patient declines, she has been talking with family and would like to keep it this way for now. (2) Dizziness: Code(s): R42 - Dizziness and giddiness Category: Medical Plan: The patient has a history of dizziness related to poor intake. Discussed with the patient about how well she is eating and drinking. The patient has not been eating and drinking like she should due to her miscarriage. Encouraged the patient to increased her fluids intake to at least 6 bottles of water in 24 hours. (3) Vitamin D deficiency: Code(s): E55.9 - Vitamin D deficiency, unspecified Category: Medical Plan: continue cholecalciferol 50 mcg daily (4) Headache: Code(s): R51.9 - Headache, unspecified Category: Medical Qualifiers: Headache type: unspecified Headache chronicity pattern: unspecified pattern Intractability: not intractable Qualified Code(s): R51.9 - Headache, unspecified Plan: Informed the patient that her headache is probably due to her low fluids intake compounded with her stressful situation. Increase fluids intake and continue work on decreasing your stress level. Contact office headache worsens or not relenting (5) Situational depression: Code(s): F43.21 - Adjustment disorder with depressed mood Category: Medical Plan: s/p miscarriage encouraged CBT, declines. She has been getting help from her mother and sister. Will allow the patient 6 weeks out of work to deal with her loss
== END 2025-01-10 11:42 | disposition home or self-care (01) ==
LOC: HO.HMCH 10:54
PROVIDERS: PCP Internal Medicine
DX: Z90.49 Acquired absence of other specified parts of digestive tract (principal); R42 Dizziness and giddiness; E55.9 Vitamin D deficiency, unspecified; R51.9 Headache, unspecified; F43.21 Adjustment disorder with depressed mood

== ENCOUNTER → 2025-01-10 10:54 | Outpatient (BNVA) | payer OTHER, SELFPAY | PROVIDERS: PCP Internal Medicine | DX: R42 Dizziness and giddiness (principal); E55.9 Vitamin D deficiency, unspecified; R51.9 Headache, unspecified; F43.21 Adjustment disorder with depressed mood; Z90.49 Acquired absence of other specified parts of digestive tract | CPT/HCPCS: 99212 ==

== ENCOUNTER 2025-01-23 10:38 | Outpatient (AMB) | payer OTHER, SELFPAY ==
--- NOTE | 2025-01-23 10:38 | MHC.OFFVIS ---
Vital Signs 01/23/25 10:39 Height 5 ft 5 in Weight 161 lb BMI 26.8 Intake Visit Reasons: bleeding at incision site Intake Note: Pt presents to the office today for bleeding at incision site Post operatively. Allergies No Known Allergies [No Known Allergies*] Allergy (Verified 01/23/25 10:38) HPI Comments Details: Patient presents here because she has some drainage from umbilical incision. New was clear colored. Otherwise doing well. Tolerating diet. Having regular bowel habits. Increasing her activity level. No incisional pain issues. [facility] Medical History Postprandial abdominal pain in right upper quadrant Overweight (BMI 25.0-29.9) Psoriasis Surgical History History of cholecystectomy History of esophagogastroduodenoscopy (EGD) H/O abdominoplasty Hx of bilateral breast reduction surgery Family History Father Diabetes mellitus Social History Housing: Apartment Alcohol intake: current Alcohol intake frequency: a few times a month Patient Tobacco Use Status: Never used Tobacco Tobacco use type: Cigarette e-Cigarette/Vaping Use: Never Used Second Hand Smoke Exposure: No service: No Current occupational status: employed Gender identity: Female Cognitive needs: No Hearing needs: No Vision needs: Yes (glasses) Female Reproductive History Menstrual Age of Menarche: 13 Physical Exam Vital Signs: BMI result Body Mass Index 26.8 GI Other: Central part of the local wound is extruding a suture. Running part of the incision is healing uneventfully. All other port sites are well healed. Suture was attempted to be removed and bacitracin applied. Assessment & Plan Assessment & Plan (1) Postoperative stitch abscess: Code(s): T81.41XA - Infection following a procedure, superficial incisional surgical site, initial encounter Category: Surgical Plan Patient was been given local instructions including bacitracin to the area with a Band-Aid each day and will otherwise follow-up p.r.n.. Should there be any issues patient was been instructed to contact the office. Coding Level of Care Code Global (39050) Diagnoses Postoperative stitch abscess T81.41XA
[2025-01-23 10:39] VITALS: BMI 26.8
== END 2025-01-23 11:10 | disposition home or self-care (01) ==
LOC: HO.HGS 10:38
PROVIDERS: PCP Internal Medicine; Visit Provider Surgery
DX: T81.41XA Infection following a procedure, superficial incisional surgical site, initial encounter (principal)
CPT/HCPCS: 99024

== ENCOUNTER → 2025-01-23 10:38 | Outpatient (BNVA) | payer OTHER, SELFPAY | PROVIDERS: PCP Internal Medicine; Visit Provider Surgery | DX: Z09 Encounter for follow-up examination after completed treatment for conditions other than malignant neoplasm (principal); T81.41XD Infection following a procedure, superficial incisional surgical site, subsequent encounter | CPT/HCPCS: 99212 ==

== ENCOUNTER 2025-02-19 14:15 | Outpatient (AMB) | payer OTHER, SELFPAY ==
--- NOTE | 2025-02-19 14:22 | A.OFFVIS_ITS ---
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 Her LMP was 01/20/2025 she has been trying to get she occasionally gets nauseous but she was previously drinking something to help her lose weight that made her nauseous also she had gallbladder surgery a month ago also she had had abnormal bleeding that reminded her of a previous miscarriage about a month ago that was for her like a miscarriage but the tests were negative. Her daughter is 12 years old normal delivered in [place]. Patient voided for test and results are pending.... History of HPV positive in 2020 followed by a negative Pap with negative HPV in 2021 discussed as patient is considering that it might be prabhakar to do a Pap today along with testing for STIs. [facility] Medical History Postprandial abdominal pain in right upper quadrant Overweight (BMI 25.0-29.9) Psoriasis Surgical History History of cholecystectomy History of esophagogastroduodenoscopy (EGD) H/O abdominoplasty Hx of bilateral breast reduction surgery Family History Father Diabetes mellitus Social History Housing: Apartment Alcohol intake: current Alcohol intake frequency: a few times a month Patient Tobacco Use Status: Never used Tobacco Tobacco use type: Cigarette e-Cigarette/Vaping Use: Never Used Second Hand Smoke Exposure: No service: No Current occupational status: employed Gender identity: Female Cognitive needs: No Hearing needs: No Vision needs: Yes (glasses) Female Reproductive History Menstrual Age of Menarche: 13 Duration of menses: 3-5 days Date of last menstrual period: 01/20/25 control method: none Total pregnancies: 3 Ab spontaneous: 2 Date of last pap smear: 08/13/22 (negative pap smear, negative hpv ) History of abnormal pap smear: Yes (03/07) Physical Exam Vital Signs: Last Vital Signs BP 102/62 02/19/25 14:26 BMI result Body Mass Index 27.0 Const General: healthy appearing, comfortable, no acute distress, well developed and alert Nutritional Appearance: average body habitus Orientation/consciousness: patient oriented x3 Limitations: no limitations HEENT Head: Yes normocephalic Neck Neck: Yes normal visual inspection Chest Other: Patient is status post breast augmentation and lift. Also has had liposuction. Chest palpation & inspection: normal inspection of the chest Breast/axilla inspection: normal inspection of the breasts and normal inspection of the axillae Breast/axilla palpation: normal palpation of the breasts and normal palpation of the axillae Resp Effort & Inspection: normal respiratory effort GI Inspection: Yes normal to inspection, No Abdominal wall edema and No distended Palpation (GI): Soft to palpation and nontender Other: External exam within normal limits vagina pink and moist with a scant whitish creamy-cy discharge cervix multiparous. Cervix is long close thick firm mobile nontender uterus nonenlarged midposition nontender. Moderately firm. Good tone with Kegel, adnexa nontender General: Yes bladder normal to palpation External Female Exam: normal external appearance and normal appearance of the urethra Speculum Exam - Vagina: normal appearance of the vagina, normal palpation and normal vaginal discharge Speculum Exam - Cervix: normal appearance of the cervix, normal palpation and nontender Bimanual exam- vagina & uterus: normal bimanual exam, normal palpation, uterine size normal, bladder normal to palpation, consistency normal, normal palpation, uterine mobility normal, uterine shape normal, No Cervical tenderness present, non-tender and no cervical motion tenderness Bimanual Exam- Adnexa, other: normal adnexae, no masses, normal and No adnexal tenderness Neuro General: patient oriented x3 Results Reviewed Results Reviewed: Name: Yvonne Green Age/Sex: 32/F Attending: Chela Montano CNM : 1990 Submitted by: Chela Montano CNM Copies to: MR #: [id number] Status: DEP REF Collected: 08/13/22 Location: [facility] Received: 08/13/22 Interpretation General Category: Negative for intraepithelial lesion/malignancy. Adequacy: Endocervical component present. Interpretation: Reactive cellular changes. Abundant acute inflammation Coccobacilli consistent with shift in vaginal nena. HPV mRNA E6/E7: NOT DETECTED This assay detects E6/E7 viral messenger RNA (mRNA) from 14 high-risk HPV types (16, 18, 31, 33, 35, 39, 45, 51, 52, 56, 58, 59, 66, 68) HPV testing performed by [facility], [place], [place]. See reference laboratory pion of the EMR for entire report. Clinical Information LMP: 08/11/22 Previous PAP test: 03/06/21, Abnormal Other history: +HPV Material Received ThinPrep-Cervical Electronically Signed By: Vanna Prado 08/24/22 0322 The Pap Test is a screening procedure with the inherent possibility of both false negative and false positive results. Results should be interpreted in the context of historic and current clinical findings. Reliability of the Pap Test is enhanced by performing the test on a regular repetitive basis. Patient: Yvonne Green Age/Sex: 32/F MR#: [id number] Page 1 of 1 Name: Yvonne Green Age/Sex: 31/F Attending: Chela Montano CNM : 1990 Submitted by: Chela Montano CNM Copies to: Dalton Mark MD MR #: [id number] Status: DEP REF Collected: 03/05/21 Location: [facility] Received: 03/06/21 Interpretation Satisfactory for evaluation. Negative for intraepithelial lesion or malignancy. Coccobacilli consistent with shift in vaginal nena. HPV mRNA E6/E7: DETECTED This assay detects E6/E7 viral messenger RNA (mRNA) from 14 high-risk HPV types (16, 18, 31, 33, 35, 39, 45, 51, 52, 56, 58, 59, 66, 68) HPV Type 16 RNA: Not Detected HPV Type 18/45 RNA: Not Detected HPV testing performed by [facility], [place], [place]. See reference laboratory portion of the EMR for entire report. Clinical Information LMP: 02/28/21 Previous PAP test: Unknown Date/Findings Material Received ThinPrep Cervical Copies To Dalton Mark MD [address] [place] [address] [address] Chela Montano CNM [address] [place] [address] [address] Electronically Signed By: Mana Bullard MD 03/20/21 0927 The Pap Test is a screening procedure with the inherent possibility of both false negative and false positive results. Results should be Patient: Hernando Page 1 of 2 Gynecologic Cytology [id number] interpreted in the context of historic and current clinical findings. Reli ability of the Pap Test is enhanced by performing the test on a regular repetitive basis. Patient: Hernando Assessment & Plan Assessment & Plan (1) Well woman exam with routine gynecological exam: Code(s): Z01.419 - Encounter for gynecological examination (general) (routine) without abnormal findings Category: Medical (2) Cervical cancer screening: Comment: 03/05/21 pap= neg , pos HPV- per asccp- repeat in one year./ 08/13/2022 Pap is negative with negative HPV. Code(s): Z12.4 - Encounter for screening for malignant neoplasm of cervix Category: Medical (3) Patient desires : Comment: Reviewed cycles and keeping track of cycle intercourse and ovulation and request referral to reproductive endo if not in 6 months Code(s): Z31.9 - Encounter for procreative management, unspecified Category: Medical (4) Family planning counseling: Code(s): Z30.09 - Encounter for other general counseling and advice on contraception Category: Medical (5) Positive urine test: Code(s): Z32.01 - Encounter for test, result positive Category: Medical Plan Had previously discussed options for care given her history of a normal healthy but that we do not have delivery services here so if she came here care would be here and delivery would be at [facility]. She has considered options earlier and would go for her care and full care and delivery at [facility]. I offered to send her a prescription for vitamins she is very happy about the test and became very tearful. It is also her birthday so it is very emotional for her. She took the test home as a souvenir. She already knows where her options for care, and where she would go and I did review importance of starting early so that there is time for 1st trimester screening to be ordered appropriately. Pap smear done as well as testing for gonorrhea chlamydia trichomoniasis bacterial vaginosis and yeast.. Patient to be given letter about positive test. Medications: New PNV,calcium 66-xrkx-rswpt acid 27 mg iron- 1 mg ( Vitamins Plus Low Iron) 1 tab PO DAILY 90 tabs 4RF Coding Level of Care Code Est Pt Prev Care 18-39y(44147) Diagnoses Well woman exam with routine gynecological exam Z01.419 Cervical cancer screening Z12.4 Patient desires Z31.9 Family planning counseling Z30.09 Positive urine test Z32.01
[2025-02-19 14:26] VITALS: BP 102/62; BMI 27.0
== END 2025-02-19 15:58 | disposition home or self-care (01) ==
LOC: HO.HWS 14:15
PROVIDERS: PCP Internal Medicine; Visit Provider Advanced Practice Midwife
DX: Z01.419 Encounter for gynecological examination (general) (routine) without abnormal findings (principal); Z34.81 Encounter for supervision of other normal pregnancy, first trimester; Z32.01 Encounter for pregnancy test, result positive
CPT/HCPCS: 99213; 99395; 99459

== ENCOUNTER 2025-02-19 14:15 | Outpatient (REF) | payer OTHER, SELFPAY ==
[2025-02-19 19:53] LABS: Bacterial Vaginosis PCR POSITIVE (Negative); Candida Group PCR NOT DETECTED (Not Detect); Candida glab krusei PCR NOT DETECTED (Not Detect); Trichomonas vaginalis PCR NOT DETECTED (Not Detect)
[2025-02-19 22:08] LABS: CT PCR NOT DETECTED (Not Detect.); NG PCR NOT DETECTED (Not Detect.)
[2025-02-23 08:45] LABS: HPV Genotype 16 Negative (Negative); HPV Genotype 18 Negative (Negative); HPV High Risk Positive (Negative)
== END 2025-02-19 14:16 | disposition home or self-care (01) ==
LOC: HO.LNP 14:15
PROVIDERS: PCP Internal Medicine; Visit Provider Advanced Practice Midwife
DX: Z32.01 Encounter for pregnancy test, result positive (principal); Z31.9 Encounter for procreative management, unspecified
CPT/HCPCS: 81515; 87491; 87591; 87626; 88175; 99212; 99395; 99459

== ENCOUNTER 2025-04-23 16:45 | Outpatient (AMB) | payer OTHER, SELFPAY ==
--- NOTE | 2025-04-23 16:47 | MHC.PC.OV ---
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 Accompanied by: Self / Same As Patient Allergies No Known Allergies (No Known Allergies*) Allergy (Verified 04/23/25 17:04) Medication List - Last Reconciled 04/23/25 by Dalton Mark MD cholecalciferol (vitamin D3) 50 mcg PO DAILY metronidazole 0.75%(37.5mg/5gram) 1 appful vaginal BEDTIME 5 days PNV,calcium 16-dbkf-jxjqb acid 27 mg iron- 1 mg ( Vitamins Plus Low Iron) 1 tab PO DAILY Tobacco use date assessed: 04/23/25 Dental Screening Dental Screen Date: 04/23/25 HPI 5 month f/u HPI Details Patient comes in today for her follow-up visit She is currently in her 1st trimester - had a positive test back in February 2025 LMP was on 01/20/25 and her EDC is on 10/24/2025 She is currently going for her visits with her OB-Gynecology at [place] Relates that she has (+) mild anemia on her recent labs but all of her other tests came back normal States that she currently has on and off nausea, most often in the morning, but she feels okay otherwise She denies any headaches or dizziness Denies any chest pains, no shortness of breath No vomiting, no abdominal pain and no change in bowel habits noted [facility] Medical History Postprandial abdominal pain in right upper quadrant Overweight (BMI 25.0-29.9) Psoriasis Surgical History History of cholecystectomy History of esophagogastroduodenoscopy (EGD) H/O abdominoplasty Hx of bilateral breast reduction surgery Family History Father Diabetes mellitus Social History Housing: Apartment Alcohol intake: current Alcohol intake frequency: a few times a month Patient Tobacco Use Status: Never used Tobacco Tobacco use type: Cigarette e-Cigarette/Vaping Use: Never Used Second Hand Smoke Exposure: No service: No Current occupational status: employed Gender identity: Female Cognitive needs: No Hearing needs: No Vision needs: Yes (glasses) Female Reproductive History Menstrual Age of Menarche: 13 Questionnaire PHQ-9 Over the last 2 weeks, how often have you been bothered by any of the following problems? 1. Little interest or pleasure in doing things: not at all 2. Feeling down, depressed, or hopeless: not at all 3. Trouble falling or staying asleep, or sleeping too much: not at all 4. Feeling tired or having little energy: nearly every day 5. Poor appetite or overeating: several days 6. Feeling bad about yourself - or that you are a failure or have let yourself or your family down: not at all 7. Trouble concentrating on things, such as reading the newspaper or watching television: not at all 8. Moving or speaking so slowly that other people could have noticed. Or the opposite - being so fidgety or restless that you have been moving around a lot more than usual: several days 9. Thoughts that you would be better off or of hurting yourself in some way: not at all Total score: 5 Depression Screening Interpretation: Positive Depression Screening Follow-up: Follow-up Visit Requested Depression Screening Done: Yes 24962 - PHQ-9 Billing: Yes Source: Developed by Drs. Delonte Manning, Renetta Childers, Casron Rodriguez and colleagues, with an educational diego from [employer]. Thrive Questionnaire Date Thrive assessed: 04/23/25 I am a: Patient What is your living situation today?: I have a steady place to live Within the past 12 months, did the food you bought not last and you didn't have the money to get more?: Never true Within the past 12 months, did you worry whether your food would run out before you got money to buy more?: Never true Do you have trouble paying for medicines?: No Do you have trouble getting transportation to medical appointments?: No Do you have trouble paying your heating and electricity bill?: Yes Do you have trouble taking care of your child, family member or friend?: No Do you have trouble with day-to-day activities such as bathing, preparing meals, shopping, managing finances, etc.?: No Are you currently unemployed and looking for a job?: No Are you interested in more education?: No Please select the resources that you would like help with: Utilities Currently or been in a relationship where the following occur: No concerns reported THRIVE Score: 1 AUDIT C Alcohol Use Questionnaire (AUDIT-C) 1. How often do you have a drink containing alcohol?: Never 3. How often do you have six or more drinks on one occasion?: Never Total Score: 0 Score Reviewed/Action Taken: Yes CIERRA-7 AMB Questionnaire CIERRA-7 Date CIERRA - 7 assessed: 04/23/25 Feeling nervous, anxious, or on edge: 3 = Nearly every day Not being able to stop or control worryin = Not at all Worrying too much about different things: 0 = Not at all Trouble relaxin = Not at all Being so restless that it is hard to sit still: 0 = Not at all Becoming easily annoyed or irritable: 0 = Not at all Feeling afraid as if something awful might happen: 0 = Not at all Total CIERRA-7 score (0-4 normal; 5-9 mild; 10-14 moderate; 15-21 severe): 3 Source: Developed by Drs. Delonte Manning, Renetta Childers, Carson Rodriguez and colleagues, with an educational diego from [employer]. Review of Systems Const Denies chills, Reports fatigue, Denies fever(s) and Denies headache(s) ENT Denies dysphagia, Denies dizziness, Denies otalgia, Denies headache(s), Denies neck pain, Denies odynophagia and Denies sore throat Card Denies chest pain, Denies palpitations and Denies dyspnea Resp Denies chest congestion, Denies cough and Denies dyspnea GI Denies abdominal pain, Denies constipation, Denies dysphagia, Denies heartburn, Denies diarrhea, Reports nausea, Denies odynophagia and Denies vomiting Denies difficulty voiding, Denies nocturia, Denies dysuria and Denies urinary urgency Musc Denies back pain and Denies neck pain Skin/Breast Denies rash Neuro Denies dizziness and Denies headache(s) Endo Reports fatigue and Denies palpitations Physical exam (Primary Care) Vital Signs: Last Vital Signs Pulse 74 04/23/25 16:48 BP 134/70 04/23/25 16:48 Pulse Ox 97 04/23/25 16:48 Oxygen Delivery Method Room Air 04/23/25 16:48 BMI result Body Mass Index 27.0 Tobacco/Smoking Status: Tobacco use Status Tobacco use date assessed 04/23/25 04/23/25 16:52 Patient Tobacco Use Status Never used Tobacco 04/23/25 16:52 Tobacco use type Cigarette 04/23/25 16:52 e-Cigarette/Vaping Use Never Used 04/23/25 16:52 PHQ-9: PHQ-9 Score PHQ-9: Total score 5 04/23/25 17:11 Depression Screening Interpretation: Positive Depression Screening Follow-up: Follow-up Visit Requested Thrive Assessment: Date of Thrive Assessment Date Thrive assessed 04/23/25 04/23/25 16:52 Currently or been in a relationship where the following occur: No concerns reported Const General: no acute distress and alert HENMT Ears: TM's normal bilaterally and EAC's normal Throat: Yes posterior oropharynx normal and Yes tonsils normal (no TP congestion) Neck Neck: Yes supple and No lymphadenopathy Thyroid: Thyroid normal Resp Auscultation: clear to auscultation bilaterally, no rales and no wheezes Cardio Rate: regular rate Rhythm: regular rhythm Heart sounds: no murmurs GI Palpation (GI): Soft to palpation and nontender Auscultation: normal bowel sounds General: Yes no CVA tenderness Back/Spine/Pelvis Back: no CVA tenderness Thoracic/Lumbar Spine: No lumbar spinal tenderness Skin Rashes: no rashes Extrem General: Yes no clubbing, cyanosis or edema Coding Level of Care Code Est Pt Level 4 (09228) Diagnoses First trimester Z34.91 Calculus of gallbladder without cholecystitis without obstruction K80.20 Biliary obstruction: without biliary obstruction Cholecystitis presence: without cholecystitis Cholelithiasis location: gallbladder Vitamin D deficiency E55.9 Overweight (BMI 25.0-29.9) E66.3 Additional Codes PHQ-9 - 54063 - PHQ-9 Billing: Yes ([id number]) Assessment & Plan Assessment & Plan (1) First trimester : Code(s): Z34.91 - Encounter for supervision of normal , unspecified, first trimester Category: Medical Plan: Patient is currently in her 1st trimester of - had a positive test back in February 2025 LMP was on 01/20/25 and her EDC is on 10/24/2025 Follow up with OB-Gynecology at [place] as scheduled for her visits (2) Cholelithiasis: Code(s): K80.20 - Calculus of gallbladder without cholecystitis without obstruction Category: Surgical Qualifiers: Biliary obstruction: without biliary obstruction Cholecystitis presence: without cholecystitis Cholelithiasis location: gallbladder Qualified Code(s): K80.20 - Calculus of gallbladder without cholecystitis without obstruction Plan: Abdominal US done back on 11/15/2024 revealed (+) nonmobile gallstone in the neck of the gallbladder She eventually underwent laparoscopic cholecystectomy in December 2024 at [facility] (3) Vitamin D deficiency: Code(s): E55.9 - Vitamin D deficiency, unspecified Category: Medical Plan: Continue Vitamin D3 2000 units QD (4) Overweight (BMI 25.0-29.9): Code(s): E66.3 - Overweight Category: Medical Plan: Reinforced diet/exercise as tolerated/lose weight Plan Follow up in December 2025, after she completes her current
[2025-04-23 16:48] VITALS: BP 134/70; PULSE 74; O2SAT 97; BMI 27.0
--- OUTSIDE RECORDS SUMMARY | 2025-04-23 16:48 | XMS_ITS | Clinical Summary ---
Author Organization [facility] Address [address] [place] [address] Phone Care Team Providers Care Set Decorator Name Role Phone Hamilton Herrera MD Primary Care Provider [phone] Allergies No known active allergies Medications M- Plus 27 mg iron- 1 mg tablet Take 1 tablet by mouth 1 (one) time each day. 02/27/2025 Active pyridoxine (VITAMIN B-6) 25 mg tabletIndicatio ns:Nausea and vomiting in prior to 22 weeks gestation Take 1 tablet (25 mg total) by mouth every 8 (eight) hours. 90 tablet 1 03/14/2025 5 Active doxylamine (UNISOM) 25 mg tabletIndicatio ns:Nausea and vomiting in prior to 22 weeks gestation Take 0.5 tablets (12.5 mg total) by mouth every 8 (eight) hours. 45 tablet 1 03/14/2025 5 Active Active Problems Problem Noted Date Diagnosed Date Maternal varicella, non-immune 04/13/2025 Overview (04/13/2025): Offer vaccine pp Multigravida of advanced maternal age in first t rimester 04/12/2025 Overview (04/12/2025): ASA 162 mg daily at 12w through delivery Referral for NIPT if desired Detailed US Weekly NST at 36 weeks Encounter for supervision of other normal , first trimester 04/12/2025 Overview (04/23/2025): 1. [place] site: [facility] ([facility]): [address] [place] [id number] ([phone]) 2. Delivery site: [facility] 3. Mobile Mommas: 4. Dating criteria: LMP confirmed by early u/s 5. Blood type: 6. Genetic screening: Date: Result: Panorama: Ordered low risk male Horizon: Ordered Nuchal: Ordered Survey: MSAFP: 6. GBS: Date: 7. FOB name: Cesar Bonilla [birth year], 8. Plans A. Epidural or other pain management - B. Labor support identified - C. Tdap - Date: Flu - Date: D. Breast or Bottle feed: E. Baby's name - F. Circumcision - 9. Hospital Course: Pap smear to confirm normal after abnormal resul t 04/12/2025 Overview (04/12/2025): Per pt she had a pap last month that was abnormal [facility] ? + hpv 04/12/2025 re signed today, waiting for report Estimated Date of Delivery Comme nts Yes 10/27/2025 Based on last me nstrual period of 01/20/2025 (Exact Date) Encounters Date Type Department Care Team Description 04/12/2025 2:00 PM EDT Clinical Support Obstetrics & Gynecology [address] [id number] Encounter for supervision of other normal in first trimester (Primary Dx); Encounter for screening of mother; Encounter for screening for nuchal translucency; Encounter for screening for malformations; Multigravida of advanced maternal age in first trimester; Encounter for supervision of other normal , first trimester; Pap smear to confirm normal after abnormal result 03/23/2025 Telephone Obstetrics & Gynecology [address] [phone] Lisset Ceron CNM Travel Consult 03/22/2025 2:37 PM EDT - 03/22/2025 11:59 PM EDT Hospital Encounter [facility] Ultrasound [address] [place] [id number] test positive Discharge Disposition: Home or Self Care 03/14/2025 9:00 AM EDT Office Visit Obstetrics & Gynecology - [address] [phone] Lisset Ceron CNM test positive (Primary Dx); Nausea and vomiting in prior to 22 weeks gestation from Last 3 Months Surgical History Surgery Date Site/Laterality Comments LIPOSUCTION 10/18/2017 - 10/17/2018 [facility] CHOLECYSTECTOMY 12/22/2024 [facility] BREAST ENHANCEMENT SURGERY W IMPLANT 10/18/2017 - 10/17/2018 [place] Medical History Medical History Date Comments Patient denies medical problems Family History Medical History Relation Name Comments No Known Problems Brother x1 No Known Problems Daughter Diabetes Father Diabetes Maternal Grandfather Arthritis Mother autistic Nephew x1 high functionin g per pt No Known Problems Sister x2 Relation Name Status Comments Brother x1 Alive Daughter Alive Father Alive Maternal Grandfather Alive Maternal Grandmother Mother Alive Nephew x1 Alive Paternal Grandfather Paternal Grandmother Sister x2 Alive Social History Tobacco Use Types Packs/Day Years Used Date Smoking Tobacco: Never Smokeless Tobacco: Never Tobacco Cessation:Counseling Given: Not Answered Housing Instability Answer Date Recorde d Are you worried that in the next 2 months you may not have stable housing? No 04/08/2025 Food Access & Nutrition Answer Date Rec orded Do you have access to a vari ety of food including fruits and vegetables? Yes 04/08/2025 Access to Healthcare Answer Date Record ed Within the last 3 months, ritu guadalupe many times did you visit the emergency department for your medical care? 0 04/08/2025 Health Literacy Answer Date Recorded How often do you need to hav e someone help you when you read instructions, pamphlets, or other written material from your doctor or pharmacy? Never 04/08/2025 Caregiver: How often do you need to have someone help you when you read instructions, pamphlets, or other written material from your doctor or pharmacy? Not on file 04/08/2025 Financial Risk Answer Date Recorded How hard is it for you to pa y for the very basics like food, housing, medical care, and air conditioning / heating? Hard 04/08/2025 Transportation Answer Date Recorded Has the lack of transportati on kept you from meetings, work, or from getting things needed for daily living? No Has the lack of transportati on kept you from medical appointments or from getting medications? No 04/08/2025 Social Isolation Answer Date Recorded How often do you feel lonely or isolated from th ose around you? Never 04/08/2025 Food Risk Answer Date Recorded Within the past 12 months we worried whether our food would run out before we got money to buy more. Never true 04/08/2025 Within the past 12 months th e food we bought just didn't last and we didn't have money to get more. Never true 04/08/2025 Dependent Care Answer Date Recorded Do you need help finding or paying for care for your loved ones. For example, child care leader or elderly care for an older adult? No 04/08/2025 Education Answer Date Recorded Do you think completing more education or training, like finishing a GED, going to college, or learning a trade, would be helpful for you? Yes 04/08/2025 Employment and Income Answer Date Recor ded During the last four weeks, have you been actively looking for work? No 04/08/2025 Living Situation Answer Date Recorded What is your living situation? 0 04/08/2025 Estimated Date of Delivery Comme nts Yes 10/27/2025 Based on last me nstrual period of 01/20/2025 (Exact Date) Sex and Gender Information Value Date Recorded Sex Assigned at Not on file Legal Sex Female 12:22 AM EST Gender Identity Not on file Sexual Orientation Not on file Occupation Industry Job Start Date Job End Date unemployed Not on file Not on file Not on file Obstetrics History Para Term AB IAB SAB Ectopic Multiple Livin g Live Births 4 1 1 0 2 0 2 0 0 1 1 Date Outcome GA Total Labor Labor/2nd/3rd Weight Sex Type Anes PTL Deepali A1 A5 Name Clin 012 Term 40w 0d 3062 g (108 oz) F Vag-S pont None N Living Complications:None Delivery Location:[facility] 2018 SAB 05/2024 SAB Delivery Location:[facility] Current Summary Episode Dates Number of Fetuses Estimated Date of Delivery 04/12/2025 - Present (04/23/2025) 1 10/27/2025 (set by Lana Noriega RN on 04/12/2025 based on Last Menstrual Period on 01/20/2025 (Exact Date)) Dating Summary Based On NAV GA Diff Last Menstrual Period on 01/20/2025 (Exact Date) 10/27/2025 Working Ultrasound on 03/22/2025 10/24/2025 +3d GA:9w1d Alternate NAV Entry 10/27/2025 Same Comment:Date entered prior t o episode creation Vitals Pregravid Weight Height TWG (As of 04/23/2025) Pregrav id BMI 72.6 kg (160 lb) 1.651 m (65 ) 2.325 kg (5 lb 2 oz) 26 .63 Notes Progress Notes - Clinical [place] pport - 04/12/2025 - GA:11w5d 04/12/2025 - 11w5d - Cristin myers, Lana Jackson RN Clarence Sanchez is a 35 y.o. old female at 11w5d. This is Planned. The patient feels happy about the . The FOB is supportive and happy. Patient's last menstrual period was 01/20/2025 (exact date). which would make her currently 11w5d with an Estimated Date of Delivery: 10/27/25. She is certain of her date. An ultrasound has already been performed on 03-22-25, size is = to dates Patient has significant history of: [place] in [place] [facility] Past Medical History: Have you had or do you currently have: Diabetes? No Hypertension? No Heart disease, Mitral valve Prolapse, or Rheumatic fever? No An Autoimmune disease such as Lupus or Rheumatoid Arthritis? No Epilepsy, Seizures, or Spells? No Migraine Headaches? No Stroke or loss of function or sensation? No Additional Questions: Have you ever been treated for anxiety and/or depression? No Are you having problems with crying spells or loss of self-esteem? No Have you ever required psychiatric care? No Have you ever had hepatitis, liver disease or jaundice? No Have you ever been treated for blood clots in your veins, deep venous thrombosis, inflammation in the veins, thrombosis, phlebitis, pulmonary embolism or varicosities? No Have you had excessive bleeding after surgery or dental work? No Do you bleed more than other women after a cut or scratch? No Do you have a history of anemia? Yes, iron supplements only per pt Have you ever had Thyroid problems or taken Thyroid medications? No Do you have any other Endocrine Problems (ie. PCOS)? No Have you ever been in a major accident or suffered serious trauma? No Within the last year, has anyone hit, slapped, kicked or otherwise hurt you? No In the last year, has anyone forced you to have sex when you didn't want to? No Do you feel safe at home? Yes Have you ever received a blood transfusion? No Would you refuse a blood transfusion if a doctor judged to be medically necessary? No Would you rather than receive a blood transfusion? No If you answered yes to the above questions, is this for church reasons? N/A Do you know what your blood type is or if you are Rh Negative? yes, O Pos Have you ever had abnormal antibodies in your blood? no Have you ever had asthma? No Have you every had Tuberculosis? No Have you ever had any breast problems? No Have you ever breast fed? No Have you ever had any gynecological surgical procedures such as cervical conization, LEEP procedure, Laser treatment, cryosurgery of the cervix or dilation and curettage, etc? No Have you had any other surgical procedures? Yes, gallbladder , lipo 360 and breast implants 7 yrs ago Have you ever been hospitalized overnight for a non-surgical reason excluding normal delivery? No Have you ever had anesthesia complications? No Have you ever had an abnormal pap smear? Yes, per pt 02/2025 at [facility] ? HPV. Re signed Do you have a history of abnormalties of the uterus? No Did your mother take CRISPIN or any other hormones when she was with you? No Did it take more than one year to become ? No Have you ever been evaluated or treated for infertility? No Is there a history of medical problems in your family which you feel might adversely affect your health or ? No Do you have any other problems we have not asked you about which you feel may be important for us to know for this ? No Do you currently have any of the following symptoms since your last menstrual period: Abdominal pain, blood in the stool or urine, chest pain, shortness of breath, coughing or vomiting up blood, your heart racing or skipping beats, nausea and/or vomiting, pain on urination, or vaginal discharge or vaginal bleeding? No Genetic Screening/Teratology Counseling- Includes patient, baby's father, or anyone in either family with: Patient's age 35 years or older as of estimated date of delivery Yes Thalassemia (Azeri, Italian, Mediterranean, or background): MCV less than 80 No Neural tube defect (Meningomyelocele, Spina bifida, or Anencephaly) No Congenital heart defect No Down syndrome No Paulo-Sachs (Ashkenazi Mandaen, Cajun, Guyanese [place]) No Jessica disease (Ashkenazi Mandaen) No Familial dysautonomia (Ashkenazi Mandaen) No Sickle cell disease or trait () No Hemophilia or other blood disorders No Muscular dystrophy No Cystic fibrosis No [place]'s chorea No Intellectual disability and/or autism Yes, per pt her sisters son 9 yrs old high functioning autism If yes, was the person tested for Fragile X? N/A Other inherited genetic or chromosomal disorder No Maternal metabolic disorder (eg. Type 1 diabetes, PKU) No Patient or baby's father had child with defects not listed above No Recurrent loss, or a stillbirth No Medications (including supplements, vitamins, herbs, or OTC drugs)/illicit/recreational drugs/alcohol since last menstrual period Yes If yes, agent(s) and strength/dosage: Any other pnv , unisom / vit b6 OB Infection History: Do you object to being tested for Hepatitis B? No Do you object to being tested for HIV? No Do you feel that you are at high risk for coming contact with the AIDS virus? No Have you ever been treated for tuberculosis? No Have you ever received the BCG vaccine? No Have you ever had a positive skin test for Tuberculosis? No Do you live with someone who has Tuberculosis? No Have you ever been exposed to Tuberculosis? No Do you have Genital Herpes? No Does your partner have Genital Herpes? No Have you had a rash or viral illness since your last period? No Have you ever had Gonorrhea, Chlamydia, Syphilis, Venereal Warts, Trichomoniasis, Pelvic Inflammatory Disease (PID) or any other sexually transmitted disease? Yes, per pt hpv on recent pap Do you know if you are a Group B Streptococcus Carrier? unknown Did you have the Chicken Pox/Varicella? unknown Were you vaccinated against Chicken Pox/Varicella? unknown Have you had any other infectious diseases? No Clarence Sanchez has been instructed on the following: random urine drug screening policy and an initial urine drug screen has been ordered., She has been counseled regarding avoiding hazards, litter boxes, smoking, drug and alcohol use during Clarence Sanchez has also been informed of the second time worker provider recommendation for first trimester nuchal lucency testing to be performed during her . Clarence Sanchez has also been made aware of the time sensitive nature for this testing to be completed. . The patient now has a gestational age of 11w5d. The patient has agreed that she does want nuchal lucency testing. Ethnicity Based Genetic Testing has been reviewed and the [employer] information sheet has been provided to the patient in their After Visit Summary. The patient was also advised that genetic testing may not be covered by all insurances. The patients states that they understand this information. The patient states that she has not had the genetic screening for Horizon 14 done in the past during a previous . Results were n/a. The patient has agreed that she does want genetic testing for Horizon 14 The following Labs have been ordered: Obstetric Panel, HIV with verbal Consent, Hepatitis C, Varicella titer, Urine Culture, UDS, Panorama with gender, and Horizon 14 panel She is aware that her insurance may or may not cover Panorama and/or Horizon 14 test and discussed lal only luo for test(s) - info given today in her after visit summary . She would like to proceed with testing. For Horizon Carrier Screening, if patient has [facility], [facility] or [facility] insurances: Not Applicable Electronically signed by: Lana Noriega RN 04/12/25 2:38 PM EDT Last Filed Vital Signs Vital Sign Reading Time Taken Comments Blood Pressure 104/70 04/12/2025 2:19 PM EDT Pulse 85 04/12/2025 2:19 PM EDT Temperature - - Respiratory Rate - - Oxygen Saturation - - Inhaled Oxygen Concentration - - Weight 74.9 kg (165 lb 2 oz) 04/12/2025 2:19 PM EDT Height 165.1 cm (5' 5 ) 04/12/2025 2:19 PM EDT Body Mass Index 27.48 04/12/2025 2:19 PM EDT Plan of Treatment Upcoming Encounters Date Type Department Care Team (Late st Contact Info) Description 04/30/2025 10:30 AM EDT Initial Obstetrics and Gynecology [facility] [address] [place] [id number] Argentina Sanchez, CN [address] [place] [address] Health Maintenance Due Date Last Done Comments DTaP,Tdap,and Td Vaccines (1 - Tdap) 2009 Hepatitis B Vaccines (1 of 3 - 19+ 3-dose series) 2009 Cervical Cancer Screening: P ap Smear 2011 COVID-19 Vaccine ( - 2023-2 5 season) 2024 Influenza Vaccine (#1) 2025 Depression Screening 04/08/2026 04/08/2025 Social Influencers of Health Screening 04/08/2026 04/08/2025 HIV Screening Completed 04/12/2025 Hepatitis C Screening Completed 04/12/2025 HIB Vaccines Aged Out No longer eligi ble based on patient's age to complete this topic HPV Vaccines Aged Out No longer eligi ble based on patient's age to complete this topic Hepatitis A Vaccines Aged Out No long er eligible based on patient's age to complete this topic IPV Vaccines Aged Out No longer eligi ble based on patient's age to complete this topic Meningococcal ACWY Vaccine Aged Out N o longer eligible based on patient's age to complete this topic Meningococcal B Vaccine Aged Out No l onger eligible based on patient's age to complete this topic Pneumococcal Vaccine: Pediat rics (0 to 5 Years) and At-Risk Patients (6 to 49 Years) Aged Out No longer eligi ble based on patient's age to complete this topic RSV Immunization Patients Un stacia 20 months Aged Out No longer eligible b ased on patient's age to complete this topic Procedures Procedure Name Priority Date/Time Associated Diagnosis Comments PANORAMA TEST Routine 8:29 AM EDT DRUG ABUSE SCREEN EXPANDED WITH REFLEX CONFIRMATION, URINE Routine 04/12/2025 3:26 PM EDT Encounter for screening of mother Encounter for supervision of other normal in first trimester CULTURE URINE Routine 04/12/2025 3:26 PM EDT Encounter for screening of mother Encounter for supervision of other normal in first trimester CBC WITH AUTO DIFFERENTIAL Routine 04/12/2025 3:14 PM EDT Encounter for screening of mother Encounter for supervision of other normal in first trimester TYPE AND SCREEN Routine 04/12/2025 3:14 PM EDT Encounter for screening of mother Encounter for supervision of other normal in first trimester TREPONEMA PALLIDUM ANTIBODY WITH REFLEX TO RPR AND PARTICLE AGGLUTINATION Routine 04/12/2025 3:14 PM EDT Encounter for screening of mother Encounter for supervision of other normal in first trimester RUBELLA ANTIBODY IGG Routine 04/12/2025 3:14 PM EDT Encounter for screening of mother Encounter for supervision of other normal in first trimester HIV 1, 2 ANTIBODY, P24 ANTIGEN WITH REFLEX TO DIFFERENTIATION Routine 04/12/2025 3:14 PM EDT Encounter for screening of mother Encounter for supervision of other normal in first trimester HEPATITIS C ANTIBODY Routine 04/12/2025 3:14 PM EDT Encounter for screening of mother Encounter for supervision of other normal in first trimester CBC AND DIFFERENTIAL Routine 04/12/2025 3:14 PM EDT Encounter for screening of mother Encounter for supervision of other normal in first trimester HEPATITIS B SURFACE ANTIGEN WITH CONFIRMATION Routine 04/12/2025 3:14 PM EDT Encounter for screening of mother Encounter for supervision of other normal in first trimester VARICELLA ZOSTER ANTIBODY IGG Routine 04/12/2025 3:14 PM EDT Encounter for screening of mother Encounter for supervision of other normal in first trimester VENIPUNCTURE CHARGE Routine 04/12/2025 3 :13 PM EDT Supervision of elderly multigravida in first trimester US OB LESS 14 WKS SINGLE OR FIRST GESTATION Routine 03/22/2025 3:44 PM EDT test positive POC , URINE DIAGNOSTIC Routine 03/14/2025 9:22 AM EDT test positive from Last 3 Months Results * Panorama test (04/20/2025 8:29 AM EDT) Blood Venous blood specimen / Unknown Lisset Ceron [facility] BLOOD ORDERABLES Final Re sult * Drug abuse screen expanded with reflex confirmation, urine (04/12/2025 3:26 PM EDT) Amphetamine Screen, Ur Negative Negative LAB CHEMISTRY METHOD 04/12/2025 5:32 PM EDT [facility] Comment:Certain OTC medicati ons containing ephedrine, phenylephrine, pseudoephedrine and phenylpropanolamine can cause false positive results. Barbiturate Screen, Ur Negative Negative LAB CHEMISTRY METHOD 04/12/2025 5:32 PM EDT [facility] Benzodiazepine Screen, Ur Negative Negative LAB CHEMISTRY METHOD 04/12/2025 5:32 PM EDT [facility] Cocaine Screen, Ur Negative Negative LAB CHEMISTRY METHOD 04/12/2025 5:32 PM EDT [facility] Opiate Screen, Ur Negative Negative LAB CHEMISTRY METHOD 04/12/2025 5:32 PM EDT [facility] Cannabinoid (THC) Screen, Ur Negative Negative LAB CHEMISTRY METHOD 04/12/2025 5:32 PM EDT [facility] Comment:Specimens from patie nts taking pantoprazole sodium (Protonix) have been shown to produce false positive results. Fentanyl, Ur Negative Negative LAB CHEMISTRY METHOD 04/12/2025 5:32 PM EDT [facility] Oxycodone Screen, Ur Negative Negative LAB CHEMISTRY METHOD 04/12/2025 5:32 PM EDT [facility] Urine Urine specimen obtained by clean catch procedure / Unknown Non-blood Collection / Unknown 04/12/2025 3:26 PM EDT 04/12/2025 4:01 PM EDT Narrative [facility] - 04/12/2025 5:32 PM EDT Assay cutoffs: Amphetamines 1000 ng/mL Barbiturates 200 ng/mL Benzodiazepines 200 ng/mL Cocaine 300 ng/mL Fentanyl 1 ng/mL Opiates 300 ng/mL Oxycodone 100 ng/mL THC 50 ng/mL Semi-quantitative assay for screening purposes only. Unconfirmed screening result should not be used for non-medical purposes. *POSITIVE RESULTS ARE AUTOMATICALLY SENT FOR ALTERNATE METHOD CONFIRMATION* [facility] URINE ORDERABLES Final Re sult Performing Organization Address [facility]/ZIP Co de Phone Number [facility] [address] [place] [address], * Culture urine (04/12/2025 3:26 PM EDT) Culture, Urine <10,000 cfu/ml, insignificant count, no further workup. 04/13/2025 10:51 AM EDT [facility] Urine Urine specimen obtained by clean catch procedure / Unknown Non-blood Collection / Unknown 04/12/2025 3:26 PM EDT 04/12/2025 4:01 PM EDT [facility] MICROBIOLOG[facility] - GENERAL OR DERABLES Final Result Performing Organization Address [facility]/ZIP Co de Phone Number [facility] [address] [place] [address], [place] [phone] * Hepatitis C antibody (04/12/2025 3:14 PM EDT) Hepatitis C Antibody Negative Negative LAB CHEMISTRY METHOD 04/12/2025 5:57 PM EDT [facility] Blood Venous blood specimen / Unknown Venipuncture / Unknown 04/12/2025 3:14 PM EDT 04/12/2025 4:00 PM EDT [facility] BLOOD ORDERABLES Final Re sult [facility] [address] [place] [address], [place] [phone] * HIV 1,2 antibody, p24 antigen with reflex to differentiation (04/12/2025 3:14 PM EDT) Pathologist [facility] HIV Combo AB/AG Negative Negative LAB CHEMISTRY METHOD 04/12/2025 5:58 PM EDT [facility] Blood Venous blood specimen / Unknown Venipuncture / Unknown 04/12/2025 3:14 PM EDT 04/12/2025 4:00 PM EDT Narrative [facility] - 04/12/2025 5:58 PM EDT This assay is a 4th generation assay allowing for earlier detection of HIV infection by detecting the presence of the HIV-1 p24 antigen as well as the traditional antibodies to HIV type 1 (including group O) and type 2. Use of a 4th generation assay is the current CDC recommendation for HIV screening. [facility] BLOOD ORDERABLES Final Re sult [facility] [address] [place] [address], [place] [phone] * Hepatitis B surface antigen with reflex to confirmation (04/12/2025 3:14 PM EDT) Hepatitis B Surface Ag Negative Negative LAB CHEMISTRY METHOD 04/12/2025 5:29 PM EDT [facility] Blood Venous blood specimen / Unknown Venipuncture / Unknown 04/12/2025 3:14 PM EDT 04/12/2025 4:00 PM EDT Narrative [facility] - 04/12/2025 5:29 PM EDT Over the counter supplements containing high doses of biotin may interfere with this assay. If interference is suspected, patients shoud be retested after refraining from biotin supplements for 72 hours. [facility] LAB BLOOD ORDERABLES Final Re sult Performing Organization Address [facility]/ZIP Co de Phone Number [facility] [address] [place] [address], [place] [phone] * Treponema pallidum antibody with reflex to RPR and particle agglutination (04/12/2025 3:14 PM EDT) Pathologist [facility] T. Pallidum Antibodies Negative Negative LAB CHEMISTRY METHOD 04/12/2025 7:05 PM EDT [facility] Blood Venous blood specimen / Unknown Venipuncture / Unknown 04/12/2025 3:14 PM EDT 04/12/2025 4:00 PM EDT [facility] LAB BLOOD ORDERABLES Final Re sult Performing Organization Address [facility]/ZIP Co de Phone Number [facility] [address] [place] [address], [place] [phone] * (ABNORMAL) CBC auto differential (04/12/2025 3:14 PM EDT) WBC 6.1 4.8 - 10.8 K/[facility] LAB HEMETOLOGY METHOD 04/12/2025 4:13 PM EDT [facility] RBC 3.90 3.80 - 4.80 M/[facility] LAB HEMETOLOGY METHOD 04/12/2025 4:13 PM EDT [facility] Hemoglobin 11.4(L) 11.5 - 16.0 g/dL LAB HEMETOLOGY METHOD 04/12/2025 4:13 PM EDT [facility] Hematocrit 33.8(L) 35.0 - 47.0 % LAB HEMETOLOGY METHOD 04/12/2025 4:[facility] MCV 87.1 79.0 - 98.0 [place] LAB HEMETOLOGY METHOD 04/12/2025 4:13 [facility] MCH 29.4 27.0 - 32.0 pcg LAB HEMETOLOGY METHOD 04/12/2025 4:13 PM [facility] MCHC 33.7 32.0 - 37.0 g/dL LAB HEMETOLOGY METHOD 04/12/2025 4:13 PM [facility] RDW 13.2 11.0 - 15.0 % LAB HEMETOLOGY METHOD 04/12/2025 4:13 PM [facility] Platelets 181 130 - 400 K/mcL LAB HEMETOLOGY METHOD 04/12/2025 4:13 PM [facility] MPV 10.3 7.0 - 11.0 [place] LAB HEMETOLOGY METHOD 04/12/2025 4:[facility] NRBC 0.0 <1.0 % LAB HEMETOLOGY METHOD 04/12/2025 4:13 [facility] NRBC Absolute 0.00 <0.10 K/mcL LAB HEMETOLOGY METHOD 04/12/2025 4:13 [facility] Neutrophils Relative 68.8 % LAB HEMETOLOGY METHOD 04/12/2025 4:13 PM [facility] Lymphocytes Relative 23.8 % LAB HEMETOLOGY METHOD 04/12/2025 4:13 [facility] Monocytes Relative 4.9 % LAB HEMETOLOGY METHOD 04/12/2025 4:13 PM EDT [facility] Eosinophils Relative 1.3 % LAB HEMETOLOGY METHOD 04/12/2025 4:13 PM EDT [facility] Basophils Relative 0.7 % LAB HEMETOLOGY METHOD 04/12/2025 4:13 PM EDT [facility] Immature Granulocytes Relative 0.5 % LAB HEMETOLOGY METHOD 04/12/2025 4:13 PM EDT [facility] Neutrophils Absolute 4.22 1.50 - 7.00 K/mcL LAB HEMETOLOGY METHOD 04/12/2025 4:13 PM EDT [facility] Lymphocytes Absolute 1.46 1.00 - 5.00 K/mcL LAB HEMETOLOGY METHOD 04/12/2025 4:13 PM EDT [facility] Monocytes Absolute 0.30 0.20 - 1.00 K/mcL LAB HEMETOLOGY METHOD 04/12/2025 4:13 PM EDT [facility] Eosinophils Absolute 0.08 0.00 - 0.50 K/mcL LAB HEMETOLOGY METHOD 04/12/2025 4:13 PM EDT [facility] Basophils Absolute 0.04 0.00 - 0.20 K/mcL LAB HEMETOLOGY METHOD 04/12/2025 4:13 PM EDT [facility] Immature Granulocytes Absolute 0.03 0.00 - 0.03 K/mcL LAB HEMETOLOGY METHOD 04/12/2025 4:13 PM EDT [facility] Blood Venous blood specimen / Unknown Venipuncture / Unknown 04/12/2025 3:14 PM EDT 04/12/2025 3:59 PM EDT us Lisset GARRISON LAB BLOOD ORDERABLES Final Re sult [facility] [address] [place] [address], * Rubella antibody IgG (04/12/2025 3:14 PM EDT) Pathologist [facility] Rubella IgG Quant 43.1 >=10.0 I Unit/mL LAB CHEMISTRY METHOD 04/12/2025 5:28 PM EDT [facility] Rubella IgG Antibody Interp Positive Positive LAB CHEMISTRY METHOD 04/12/2025 5:28 PM EDT [facility] Blood Venous blood specimen / Unknown Venipuncture / Unknown 04/12/2025 3:14 PM EDT 04/12/2025 4:00 PM EDT [facility] Final Re sult Performing Organization Address [facility]/ZIP Co de Phone Number [facility] [address] [place] [address], * Type and screen (04/12/2025 3:14 PM EDT) Pathologist [facility] ABO Group O 04/12/2025 7:46 PM EDT [facility] Rh Type Positive 04/12/2025 7:46 PM EDT [facility] Antibody Screen Negative 04/12/2025 7:46 PM EDT [facility] Blood Venous blood specimen / Unknown Venipuncture / Unknown 04/12/2025 3:14 PM EDT 04/12/2025 3:59 PM EDT [facility] LAB BLOOD BANK TEST ORDERABLE S Final Result [facility] [address] [place] [address], [place] [phone] * (ABNORMAL) Varicella zoster antibody IgG (04/12/2025 3:14 PM EDT) Pathologist [facility] Varicella IgG Negative( A) Positive LAB CHEMISTRY METHOD 04/13/2025 8:25 AM EDT [facility] Varicella Zoster IgG 0.23(L) >=1.00 S/CO LAB CHEMISTRY METHOD 04/13/2025 8:25 AM EDT [facility] Blood Venous blood specimen / Unknown Venipuncture / Unknown 04/12/2025 3:14 PM EDT 04/12/2025 4:00 PM EDT Narrative [facility] - 04/13/2025 8:25 AM EDT Interpretation >= 1.00 S/CO is considered to be consistent with Immunity Lisset Ceron [facility] LAB BLOOD ORDERABLES Final Re sult Performing Organization Address [facility] de Phone Number [facility] [address] [place] [address], [place] [phone] * Venipuncture charge (04/12/2025 3:13 PM EDT) Extra Tube Hold for add-ons. 04/12/2025 5:01 PM EDT [facility] Comment:Auto resulted. Blood Venous blood specimen / Unknown Venipuncture / Unknown 04/12/2025 3:13 PM EDT 04/12/2025 3:59 PM EDT [facility] LAB BLOOD ORDERABLES Final Re sult Performing Organization Address [facility] Co de Phone Number [facility] [address] [place] [address], [place] [phone] * US OB Less 14 Wks Single or First Gestation (03/22/2025 3:44 PM EDT) Anatomical Region Laterality Modality Body Ultrasound 03/23/2025 7:08 AM EDT Impressions 03/23/2025 7:16 AM EDT There is a live single intrauterine gestation with an estimated gestational age of 9 weeks 1 day based upon the aggregate sonographic measurements which yields an EDC of 10/24/25 -------- FINAL REPORT -------- Dictated By: Marcos Thompson Dictated Date: 03/23/2025 07:08 ET Assigned Physician: Marcos Thompson Reviewed and Electronically Signed By: Marcos Thompson Signed Date: 03/23/2025 07:16 ET Workstation ID: [id number] Transcribed By: Self Edit Transcribed Date: 03/23/2025 07:08 ET Narrative 03/23/2025 7:16 AM EDT EXAM: EARLY OBSTETRIC ULTRASOUND CLINICAL INFORMATION: Uncertain dating. TECHNIQUE: Transcutaneous pelvic ultrasound. Transvaginal scanning was performed following voiding to better evaluate the uterine contents and adnexa. Color mapping was performed. Doppler spectral analysis was performed in the ovaries. M-mode Doppler for cardiac activity was performed Comparison: No prior studies are available for comparison. FINDINGS: Quality: Good Expected region of vagina: No suspicious abnormality Cervix: No abnormality. The estimated cervical length is 3.7 cm. Uterine position: Anteverted Uterine size: 12.0 x 5.6 x 8.0 cm Endometrium: No endometrial mass or thickening. No suspicious abnormal echogenicity surrounding the gestational sac. Intrauterine contents: There is an intrauterine gestational sac which appears appropriately positioned within the endometrial cavity. Smooth contours. There is separation between the chorion and amnion with a smooth contour. Placenta: No discrete placenta demonstrated. Uniform decidual reaction. Yolk sac: There is a smooth yolk sac present. pole: A pole is demonstrated. No gross anomalies. cardiac activity: Regular cardiac activity was demonstrated Biometrics: Gestational sac size: Not documented Yolk sac size: 0.4 cm [place]-rump length: 2.4 cm cardiac rate: 161 bpm The best estimated gestational age: Based on menstrual dating is 8 weeks 3 days The estimated gestational age based upon the aggregate sonographic measurements: 9 weeks 1 day EDC: Based upon the sonographic measurements is 10/24/25 somatic activity documented: Not documented survey: Early gestational age precludes survey. No gross abnormality. Myometrium: Homogeneous Uterine contour: Smooth Right ovary: The right ovary is not definitely identified. No suspicious right adnexal mass or collection. Left ovary: The left ovary measures approximately 2.8 x 1.8 x 2.6 cm. No suspicious left adnexal mass or collection. Free fluid: None. Procedure Note Marcos Thompson MD - 03/23/2025 EXAM: EARLY OBSTETRIC ULTRASOUND CLINICAL INFORMATION: Uncertain dating. TECHNIQUE: Transcutaneous pelvic ultrasound. Transvaginal scanning was performed following voiding to better evaluatethe uterine contents and adnexa. Color mapping was performed. Doppler spectral analysis was performed in the ovaries. M-mode Doppler for cardiac activity was performed Comparison: No prior studies are available for comparison. FINDINGS: Quality: Good Expected region of vagina: No suspicious abnormality Cervix: No abnormality. The estimated cervical length is 3.7 cm. Uterine position: Anteverted Uterine size: 12.0 x 5.6 x 8.0 cm Endometrium: No endometrial mass or thickening. No suspicious abnormalechogenicity surrounding the gestational sac. Intrauterine contents: There is an intrauterine gestational sac whichappears appropriately positioned within the endometrial cavity. Smoothcontours. There is separation between the chorion and amnion with a smoothcontour. Placenta: No discrete placenta demonstrated. Uniform decidualreaction. Yolk sac: There is a smooth yolk sac present. pole: A pole is demonstrated. No gross anomalies. cardiac activity: Regular cardiac activity was demonstrated Biometrics: Gestational sac size: Not documented Yolk sac size: 0.4 cm [place]-rump length: 2.4 cm cardiac rate: 161 bpm The best estimated gestational age: Based on menstrual dating is 8 weeks 3days The estimated gestational age based upon the aggregate sonographicmeasurements: 9 weeks 1 day EDC: Based upon the sonographic measurements is 10/24/25 somatic activity documented: Not documented survey: Early gestational age precludes survey. No grossabnormality. Myometrium: Homogeneous Uterine contour: Smooth Right ovary: The right ovary is not definitely identified. No suspiciousright adnexal mass or collection. Left ovary: The left ovary measures approximately 2.8 x 1.8 x 2.6 cm. Nosuspicious left adnexal mass or collection. Free fluid: None. IMPRESSION: There is a live single intrauterine gestation with an estimatedgestational age of 9 weeks 1 day based upon the aggregate sonographicmeasurements which yields an EDC of 10/24/25 -------- FINAL REPORT -------- Dictated By: Marcos Thompson Dictated Date: 03/23/2025 07:08 ET Assigned Physician: Marcos Thompson Reviewed and Electronically Signed By: Marcos Thompson Signed Date: 03/23/2025 07:16 ET Workstation ID: [id number] Transcribed By: Self Edit Transcribed Date: 03/23/2025 07:08 ET Lisset Ceron CNM IMG OB US PROCEDURES Final Re sult * (ABNORMAL) POC , urine manually resulted (03/14/2025 9:22 AM EDT) HCG, Ur POC Positive(A ) Negative POC hCG Int QC Pass? Yes Yes Urine Urine specimen obtained by clean catch procedure / Unknown 03/14/2025 9:22 AM EDT Lisset Ceron CNM POINT OF CARE TEST ENTER/EDIT ORDERABLES Final Result from Last 3 Months Insurance Care Teams Set Decorator Relationship Specialty Start Date End Date Hamilton Herrera MD [address] [place] [address] Dr De Santiago [address] [place], [place] [id number] PCP - General Internal Medicine 04/14/17
== END 2025-04-23 17:15 | disposition home or self-care (01) ==
LOC: HO.HMCH 16:46
PROVIDERS: PCP Internal Medicine; Visit Provider Internal Medicine
DX: Z34.91 Encounter for supervision of normal pregnancy, unspecified, first trimester (principal); K80.20 Calculus of gallbladder without cholecystitis without obstruction; E55.9 Vitamin D deficiency, unspecified; E66.3 Overweight

== ENCOUNTER → 2025-04-23 16:45 | Outpatient (BNVA) | payer OTHER, SELFPAY | PROVIDERS: PCP Internal Medicine; Visit Provider Internal Medicine | DX: K80.20 Calculus of gallbladder without cholecystitis without obstruction (principal); O26.891 Other specified pregnancy related conditions, first trimester; E55.9 Vitamin D deficiency, unspecified; E66.3 Overweight | CPT/HCPCS: 96127; 99212 ==